=== PATIENT | female | born 1955 | race Caucasian/White ===

== ENCOUNTER 2018-09-16 14:30 | Inpatient (IN) | payer OTHER, SELFPAY ==
[2018-09-16] VITALS (11 sets, daily range): BP systolic 106–137; BP diastolic 40–66; PULSE 92–104; RESP 15–24; TEMP 36–36.4; O2SAT 97–100; BMI 26.2; BMI 24.7; BMI 24.8
[2018-09-16 14:51] LABS: Bedside Glucose > 500 mg/dL (70-110)
--- NOTE | 2018-09-16 15:17 | EKG12_ITS ---
Test Reason : GEN ILLNESS Blood Pressure : / mmHG Vent. Rate : 097 BPM Atrial Rate : 097 BPM P-R Int : 138 ms QRS Dur : 082 ms QT Int : 366 ms P-R-T Axes : 088 093 074 degrees QTc Int : 464 ms Normal sinus rhythm Right atrial enlargement Rightward axis Abnormal ECG Confirmed by CHRISTINA JEAN, ADELINE ([id number]), online content editor JEMIMA ANTOINE ([id number]) on 09/20/2018 6:30:40 AM Referred By: MARIE Confirmed By:ADELINE VASQUEZ MD
[2018-09-16] MEDS: 0.9% Normal Saline 1,000 ML 1000 ML IV (15:30)
[2018-09-16] MEDS: Ondansetron 4 MG/2 ML Vial IV (15:30)
--- NOTE | 2018-09-16 15:47 | ED.VISSUMM ---
- ER Visit Summary Date of Service: 09/16/18 Chief Complaint: Nausea vomiting History of Present Illness: The patient is a 63 F with nausea and vomiting for 2 days states worse today she is vomiting once an hour. She feels lightheaded. She recently got switched to a new GLP-1 receptor medication, exenatide, it is a once a week administration, she had her first dose 2 days ago she has no fever chills she denies any abdominal pain flank pain or dysuria. Physical Examination: She appears in some distress Dry mucous membranes, no obvious facial deformity No C-spine tenderness supple neck. Regular rate and rhythm without any obvious murmurs Clear lungs bilaterally speaking in full sentences without any obvious respiratory distress Abdomen soft and nontender no guarding or rebound Moves all extremities without any difficulty or pain. Skin does not show any obvious rashes or lesions, no trauma. Alert oriented ?3 with no gross focal deficit Emergency Department Course and Treatment: Patient is found to be in DKA. I started an insulin drip. She appears in slight distress I treated her nausea I reevaluated her again again she has no abdominal pain. I will admit her to ICU. She does have slight pancreatitis which will need to be monitored. Disposition: Admit in critical condition Impression: DKA critical care time 30 minutes This note was generated with [employer] dictation software. It may contain incorrect words, spelling, and punctuation that were not noted in review of the chart prior to signing ED Disposition - Plan for ED Patient: Referrals: Chandler Perez [Primary Care Provider] -
[2018-09-16 16:00] LABS: Bacteria 0 SEEN /hpf (None Seen); Mucous, Urine 0 SEEN /hpf (<or=2+); White Blood Cells 0 SEEN /hpf (0-5)
[2018-09-16 16:01] LABS: AST(SGOT) 23 U/L (15-37); Alanine Aminotransfer ALT/SGPT 26 U/L (13-56); Albumin, Serum 4.2 g/dL (3.2-5.0); Alkaline Phosphatase 124 U/L (45-117); Anion Gap 27 (5-15); BUN 29 mg/dL (7-18); Calcium,Total 9.5 mg/dL (8.5-10.1); Chloride 96 mmol/L (98-107); Creatinine, Serum 1.45 mg/dL (0.55-1.02); EST Glomerular Filtration Rate 39 mL/min (>60); Est Glom Filt Rate - Afr Amer 47 mL/min (>60); Estimated Creatinine Clearance 28.52 ml/min; Globulin 4.4 g/dL (2.2-4.2); Glucose 577 mg/dL (74-106); Lipase 756 U/L (73-393); Potassium 5.4 mmol/L (3.5-5.1); Protein, Total 8.6 g/dL (6.4-8.2); Sodium Level 132 mmol/L (136-145)
[2018-09-16 16:27] LABS: Color, Urine Yellow (Yellow); Glucose, Dipstick 1000 mg/dl (Normal); Leukocyte Esterase-Dipstick Negative /ul (Negative); Nitrite-Dipstick Negative (Negative); Occult Blood-Urine 50 /ul (Negative); Protein-Dipstick 30 mg/dl (Negative); Specific Gravity, Urine 1.025 (1.002-1.030); Urine Bilirubin Dipstick Negative (Negative); Urine Clarity Clear (Clear); Urine Urobilinogen Normal (Normal)
[2018-09-16 16:38] LABS: Ketone-Dipstick 150 mg/dl (Negative)
--- NOTE | 2018-09-16 16:38 | ED.RN ---
notified Dr. Deras of urine ketones 150
[2018-09-16 16:39] LABS: Red Blood Cells-Urine 0-5 SEEN /hpf (0-5); Squamous Epithelial Cells - UA 0-5 SEEN /hpf (5-10)
[2018-09-16 16:43] LABS: Absolute Lymphocyte Count 2.35 X10^3/ul (0.83-4.51); Basophil# 0.04 X10^3/uL; Basophil% 0.1 % (0-1); Eosinophil# 0.03 X10^3/uL; Eosinophils% 0.1 % (0-5); Hematocrit 49.2 % (37-47); Hemoglobin 15.8 g/dl (12.0-15.0); Lymphocyte # 2.35 X10^3/ul (4.0); Lymphocyte % 8.5 % (19-41); Mean Corp Hgb Conc 32.1 g/gl (32-36); Mean Corpuscular Hgb 32.3 pg (27.0-32.0); Mean Corpuscular Volume 100.6 fL (81-99); Mean Platelet Vol. 10.8 fl (6.2-12.0); Monocyte# 1.91 X10^3/uL; Monocyte% 6.9 % (0-10); Neutrophil # 23.04 X10^3/uL (2.7-7.7); Neutrophil % 83.8 % (47-70); Platelet Count 394 K/mm3 (150-450); RBC Distribution Width CV 12.7 % (11.6-14.6); RBC Distribution Width SD 46.7 fl (35.1-43.9); Red Blood Count 4.89 M/mm3 (4.2-5.4); White Blood Count 27.5 K/mm3 (4.4-11.0)
[2018-09-16 16:54] LABS: Allen Test POS; Blood Gas Specimen Type ART; O2 Delivery Device Room Air; SITE L RADIAL; Time Given 1642
[2018-09-16 16:55] LABS: Bicarbonate 3.6 mmol/L (22-26); PO2 128 mmHG (75-100); pCO2 14.4 mmHg (35-45); pH 7.01 (7.35-7.45)
[2018-09-16 16:56] LABS: Base Excess -27 mmol/L (-2 to +2); SO2 97 % (95-99); Total Carbon Dioxide < 5 mmol/L
[2018-09-16 16:57] LABS: Anisocytosis 1+; Differential Indicated SCAN CRITERIA MET; Macrocytosis 1+; POSITIVE COUNT NO; POSITIVE DIFFERENTIAL YES; POSITIVE MORPHOLOGY YES; Platelet Estimate ADEQUATE (ADEQ)
[2018-09-16 17:10] LABS: Bedside Glucose > 500 mg/dL (70-110)
--- NOTE | 2018-09-16 17:14 | CPS ---
critical abg results read to Dr. Deras
--- NOTE | 2018-09-16 17:34 | PCM.HP.STD ---
<Obi Valle - Last Filed: 09/16/18 17:34> Problem List (1) DKA (diabetic ketoacidoses) Status: Acute (2) Drug reaction Status: Acute (3) Diabetes Status: Chronic Qualifiers: Diabetes mellitus type: type 2 History of Present Illness Date of Admission: 09/16/18 Chief Complaint: nausea/vomiting The patient is a 63 year old F with pmhx of Dmt2 who presented to the ER with ongoing nausea and vomiting that started at about 2am. She presents in DKA, having recently started bydureon for DMt2. She felt fine yesterday. She currently is somewhat nauseous, feeling exhausted and thirsty. She denies SOB at rest, has mild exertional SOB, she denies cough, abdominal pain, diarrhea, MI. No reported urinary issues including emptying difficulty, frequency, urgency, dysuria. No recent illness/infection. She took her first dose of bydureon 2 days prior to today. In the ER she has severe leukocytosis, ABG with pH of 7.01, high pO2 and low pCO2, high anion gap metabolic acidosis, glucose of 577, elevated acetone, and urine with 30 protein, 1000 glucose, 150 ketones. She also has an elevated lipase, and pancreatitis is a possible reaction from GLP1 agonists. She however has no abdominal pain or tenderness. She will be admitted to the ICU for DKA and placed on an insulin drip. [] Past Medical History Past Medical History (Chronic Problems): Chronic Problems Diabetes (Chronic) Allergies exenatide [From Bydureon] Adverse Reaction (Verified 09/16/18 14:32) Other passed out Home Medications: Ambulatory Orders Medication Instructions Recorded Aspirin [Aspirin, Baby] 81 mg PO DAILY 09/16/18 Exenatide Microspheres [Bydureon 2 mg SQ QWEEK 09/16/18 Pen] Insulin Detemir [Levemir FlexPen] 22 units SQ BID 09/16/18 Insulin Lispro [Humalog Kwikpen] 4 - 20 unit SQ DAILY 09/16/18 Metformin HCl 1,000 mg PO BID 09/16/18 Raloxifene HCl 60 mg PO DAILY 09/16/18 Surgical History: no surgical history Psychiatric History: 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 Denies: Chills, Fever, Weight Change HEENT: Denies: Head Aches, Sinus Congestion, Sinus Drainage Cardiovascular: Denies: Chest Pain, Palpitations Respiratory: Reports: Shortness of Breath, Shortness of breath upon exertion. Denies: Cough, Shortness of breath at rest, Sputum production, Wheezing Gastrointestinal: Reports: Nausea, Vomiting. Denies: Abdominal Pain, Diarrhea Genitourinary: Denies: Dysuria Musculoskeletal: Denies: Joint Pain, Joint Tenderness Skin: Denies: Rash, Wounds Neurological: Denies: Numbness, Tingling, Focal weakness Psychiatric: Denies: Anxiety, Depression, Homicidal Ideations, Suicidal Ideations Hematologic/ Lymphatic: Denies: Easy Bruising, Easy Bleeding VTE Information - Inpt Only VTE Present on Admission: No VTE Mechan Device Prophylaxis: None VTE Pharm Prophylaxis ordered?: Yes Patient Problems: Active and Suspected Problems DKA (diabetic ketoacidoses) (Acute) Drug reaction (Acute) - Physical Exam General: Alert, Oriented x3, Cooperative HEENT: Atraumatic, PERRLA, EOMI, Normocephalic Neck: Supple, No JVD, Negative Carotid Bruits Lungs: Clear to auscultation, Normal air movement Cardiovascular: Regular rate, No murmurs Abdomen: Bowel Sounds Present, Soft, Non Tender Extremities: No edema, Capillary Refill Less than 3 Seconds Skin: No rashes, No breakdown Musculoskeletal: No Tenderness to Palpation of Joints or Extremities Neurological: Cranial nerves II-XII grossly intact Psych/Mental Status: Normal Affect, Appropriate, Alert and oriented to time, place, person, mood and affect Vital Signs Temp Pulse Resp BP Pulse Ox 97.6 F L 98 24 H 112/60 100 09/16/18 17:30 09/16/18 17:30 09/16/18 17:30 09/16/18 17:30 09/16/18 17:30 Oxygen Delivery Method Room Air Weight: 126 lb 15.78 oz Body Mass Index (BMI) 24.7 Finger Stick Blood Glucose 555 Laboratory Tests Past 24 Hrs 09/16/18 09/16/18 09/16/18 15:00 15:00 15:00 WBC 27.5 H RBC 4.89 Hgb 15.8 H Hct 49.2 H MCV 100.6 H MCH 32.3 H MCHC 32.1 RDW 12.7 RDW Differential 46.7 H Plt Count 394 MPV 10.8 Immature Gran % (Auto) 0.600 Neut % (Auto) 83.8 H Lymph % (Auto) 8.5 L [place] % (Auto) 6.9 Eos % (Auto) 0.1 Baso % (Auto) 0.1 Absolute Neuts (auto) 23.0 H Absolute Lymphs (auto) 2.35 Total Counted Not Reportable Differential Comment Diff Path Review May foll Platelet Estimate ADEQUATE Anisocytosis 1+ Macrocytosis 1+ Specimen Type Sample Site pH Bicarbonate Actual POC Total CO2 Base Excess O2 Saturation ABG pCO2 ABG pO2 Héctor Test O2 Delivery Device Blood Gas Notified Whom Blood Gas Notified Time Sodium 132 L Potassium 5.4 H Chloride 96 L Carbon Dioxide 9.0 L* Anion Gap 27 H BUN 29 H Creatinine 1.45 H Estim Creat Clear Calc 28.52 Est GFR (MDRD) Af Amer 47 L Est GFR (MDRD) Non-Af 39 L BUN/Creatinine Ratio 20.0 Glucose 577 H* Calcium 9.5 Total Bilirubin 0.50 AST 23 ALT 26 Alkaline Phosphatase 124 H Troponin I < 0.015 Total Protein 8.6 H Albumin 4.2 Globulin 4.4 H Albumin/Globulin Ratio 1.0 Lipase 756 H Urine Color Urine Clarity Urine pH Ur Specific [place] Urine Protein Urine Glucose (UA) Urine Ketones Urine Occult Blood Urine Nitrite Urine Bilirubin Urine Urobilinogen Ur Leukocyte Esterase Urine RBC Urine WBC Ur Squamous Epith Cells Urine Bacteria Urine Mucus Acetone Level MODERATE H 09/16/18 09/16/18 15:53 16:42 WBC RBC Hgb Hct MCV MCH MCHC RDW RDW Differential Plt Count MPV Immature Gran % (Auto) Neut % (Auto) Lymph % (Auto) [place] % (Auto) Eos % (Auto) Baso % (Auto) Absolute Neuts (auto) Absolute Lymphs (auto) Total Counted Differential Comment Diff Path Review Platelet Estimate Anisocytosis Macrocytosis Specimen Type ART Sample Site L RADIAL pH 7.01 L* Bicarbonate Actual 3.6 L POC Total CO2 < 5 Base Excess -27 L O2 Saturation 97 ABG pCO2 14.4 L* ABG pO2 128 H Héctor Test POS O2 Delivery Device Room Air Blood Gas Notified Whom ED Blood Gas Notified Time 1642 Sodium Potassium Chloride Carbon Dioxide Anion Gap BUN Creatinine Estim Creat Clear Calc Est GFR (MDRD) Af Amer Est GFR (MDRD) Non-Af BUN/Creatinine Ratio Glucose Calcium Total Bilirubin AST ALT Alkaline Phosphatase Troponin I Total Protein Albumin Globulin Albumin/Globulin Ratio Lipase Urine Color Yellow Urine Clarity Clear Urine pH 5.0 Ur Specific [place] 1.025 Urine Protein 30 H Urine Glucose (UA) 1000 H Urine Ketones 150 H Urine Occult Blood 50 H Urine Nitrite Negative Urine Bilirubin Negative Urine Urobilinogen Normal Ur Leukocyte Esterase Negative Urine RBC 0-5 SEEN Urine WBC 0 SEEN Ur Squamous Epith Cells 0-5 SEEN Urine Bacteria 0 SEEN Urine Mucus 0 SEEN Acetone Level POC Glucose 09/16/18 09/16/18 17:04 14:44 POC Glucose > 500 H* > 500 H* Assessment/Plan All Active Problems DKA (diabetic ketoacidoses) (Acute) Drug reaction (Acute) 1. Acute DKA 2/2 drug reaction (bydureon) - pt without breathing issues at this point, despite pH 7.01. Place in ICU on insulin drip and aggressive fluids. Monitor for sx/sx of pancreatitis. Elevated lipase which is a possible side effect of [id number] however currently no abdominal pain. N/V has improved. NPO regardless. q4h bmp last was hemolyzed. Currently no evidence of acute infectious process. 2. Probably MONIQUE 2/2 above however we do not have a baseline renal function. 3. DMt2 - no longer a candidate for GLP1 agonists, hold metformin DVT ppx: heparin This patient was seen by Obi Valle PA-C under the supervision of Dr. Carlos. <Abdiel Carlos F - Last Filed: 09/16/18 19:21> History of Present Illness The patient is a 63 year old F [] Past Medical History Allergies exenatide [From Bydureon] Adverse Reaction (Verified 09/16/18 14:32) Other passed out - Physical Exam Vital Signs Temp Pulse Resp BP Pulse Ox 97.6 F L 100 24 H 120/46 L 100 09/16/18 17:30 09/16/18 17:45 09/16/18 17:30 09/16/18 17:30 09/16/18 17:30 Oxygen Delivery Method Room Air Weight: 126 lb 15.78 oz Body Mass Index (BMI) 24.7 Finger Stick Blood Glucose 555 Intake and Output for Last 24 Hours 09/14/18 09/15/18 09/16/18 23:59 23:59 23:59 Output Total 500 / 500 Balance -500 / -500 Laboratory Tests Past 24 Hrs 09/16/18 09/16/18 09/16/18 15:00 15:00 15:00 WBC 27.5 H RBC 4.89 Hgb 15.8 H Hct 49.2 H MCV 100.6 H MCH 32.3 H MCHC 32.1 RDW 12.7 RDW Differential 46.7 H Plt Count 394 MPV 10.8 Immature Gran % (Auto) 0.600 Neut % (Auto) 83.8 H Lymph % (Auto) 8.5 L [place] % (Auto) 6.9 Eos % (Auto) 0.1 Baso % (Auto) 0.1 Absolute Neuts (auto) 23.0 H Absolute Lymphs (auto) 2.35 Total Counted Not Reportable Differential Comment Diff Path Review May foll Platelet Estimate ADEQUATE Anisocytosis 1+ Macrocytosis 1+ Specimen Type Sample Site pH Bicarbonate Actual POC Total CO2 Base Excess O2 Saturation ABG pCO2 ABG pO2 Héctor Test O2 Delivery Device Blood Gas Notified Whom Blood Gas Notified Time Sodium 132 L Potassium 5.4 H Chloride 96 L Carbon Dioxide 9.0 L* Anion Gap 27 H BUN 29 H Creatinine 1.45 H Estim Creat Clear Calc 28.52 Est GFR (MDRD) Af Amer 47 L Est GFR (MDRD) Non-Af 39 L BUN/Creatinine Ratio 20.0 Glucose 577 H* Serum Osmolality Calcium 9.5 Magnesium Total Bilirubin 0.50 AST 23 ALT 26 Alkaline Phosphatase 124 H Troponin I < 0.015 Total Protein 8.6 H Albumin 4.2 Globulin 4.4 H Albumin/Globulin Ratio 1.0 Lipase 756 H Urine Color Urine Clarity Urine pH Ur Specific [place] Urine Protein Urine Glucose (UA) Urine Ketones Urine Occult Blood Urine Nitrite Urine Bilirubin Urine Urobilinogen Ur Leukocyte Esterase Urine RBC Urine WBC Ur Squamous Epith Cells Urine Bacteria Urine Mucus Acetone Level MODERATE H 09/16/18 09/16/18 09/16/18 15:53 16:42 18:30 WBC RBC Hgb Hct MCV MCH MCHC RDW RDW Differential Plt Count MPV Immature Gran % (Auto) Neut % (Auto) Lymph % (Auto) [place] % (Auto) Eos % (Auto) Baso % (Auto) Absolute Neuts (auto) Absolute Lymphs (auto) Total Counted Differential Comment Diff Path Review Platelet Estimate Anisocytosis Macrocytosis Specimen Type ART Sample Site L RADIAL pH 7.01 L* Bicarbonate Actual 3.6 L POC Total CO2 < 5 Base Excess -27 L O2 Saturation 97 ABG pCO2 14.4 L* ABG pO2 128 H Héctor Test POS O2 Delivery Device Room Air Blood Gas Notified Whom ED Blood Gas Notified Time 1642 Sodium Potassium Chloride Carbon Dioxide Anion Gap BUN Creatinine Estim Creat Clear Calc Est GFR (MDRD) Af Amer Est GFR (MDRD) Non-Af BUN/Creatinine Ratio Glucose Serum Osmolality Calcium Magnesium 2.5 Total Bilirubin AST ALT Alkaline Phosphatase Troponin I Total Protein Albumin Globulin Albumin/Globulin Ratio Lipase Urine Color Yellow Urine Clarity Clear Urine pH 5.0 Ur Specific [place] 1.025 Urine Protein 30 H Urine Glucose (UA) 1000 H Urine Ketones 150 H Urine Occult Blood 50 H Urine Nitrite Negative Urine Bilirubin Negative Urine Urobilinogen Normal Ur Leukocyte Esterase Negative Urine RBC 0-5 SEEN Urine WBC 0 SEEN Ur Squamous Epith Cells 0-5 SEEN Urine Bacteria 0 SEEN Urine Mucus 0 SEEN Acetone Level 09/16/18 09/16/18 18:30 18:30 WBC RBC Hgb Hct MCV MCH MCHC RDW RDW Differential Plt Count MPV Immature Gran % (Auto) Neut % (Auto) Lymph % (Auto) [place] % (Auto) Eos % (Auto) Baso % (Auto) Absolute Neuts (auto) Absolute Lymphs (auto) Total Counted Differential Comment Diff Path Review Platelet Estimate Anisocytosis Macrocytosis Specimen Type Sample Site pH Bicarbonate Actual POC Total CO2 Base Excess O2 Saturation ABG pCO2 ABG pO2 Héctor Test O2 Delivery Device Blood Gas Notified Whom Blood Gas Notified Time Sodium 136 Potassium 5.3 H Chloride 104 Carbon Dioxide 5.0 L* Anion Gap 27 H BUN 29 H Creatinine 1.29 H Estim Creat Clear Calc 32.06 Est GFR (MDRD) Af Amer 54 L Est GFR (MDRD) Non-Af 44 L BUN/Creatinine Ratio 22.5 H Glucose 513 H* Serum Osmolality 334 H Calcium 8.9 Magnesium Total Bilirubin AST ALT Alkaline Phosphatase Troponin I Total Protein Albumin Globulin Albumin/Globulin Ratio Lipase Urine Color Urine Clarity Urine pH Ur Specific [place] Urine Protein Urine Glucose (UA) Urine Ketones Urine Occult Blood Urine Nitrite Urine Bilirubin Urine Urobilinogen Ur Leukocyte Esterase Urine RBC Urine WBC Ur Squamous Epith Cells Urine Bacteria Urine Mucus Acetone Level POC Glucose 09/16/18 09/16/18 09/16/18 18:03 17:04 14:44 POC Glucose > 500 H* > 500 H* > 500 H* Code Visit Addendum: Dr. Carlos I personally examined the patient and reviewed the chart. I agree with the above. 83-year-old female with history of type 2 diabetes who was to be transitioned from Levemir to exenatide because she was getting hypoglycemic on her insulin. Her most recent dose of her exenatide was 2 days ago and she presents with nausea, vomiting, fatigue, and elevated lipase in the 700s as well as what appears to be DKA. Her blood sugar on admission was 577 with a pH of 7.01 and moderate acetone will be admitted to the ICU on an insulin drip and IV fluids per protocol and will be monitored. She will also need diabetic education and teaching on how to use her insulin as I do not think that exenatide is right for her and she will need to follow-up with her PCP/principal accounts clerk as an outpatient after discharge. Inpatient E&M: [id number] Init Hosp L3
--- NOTE | 2018-09-16 17:36 | ED.RN ---
INSULIN VERIFIED WITH DANIEL YOU. Geovanny LONGORIA RN [id number]
[2018-09-16 18:11] LABS: Bedside Glucose > 500 mg/dL (70-110)
[2018-09-16] MEDS: 0.9% Normal Saline 1,000 ML 999 ML IV (18:30)
[2018-09-16 18:53] LABS: Osmolality, Serum 334 mOsm/KG (280-301)
[2018-09-16 19:01] LABS: Magnesium 2.5 mg/dL (1.6-2.6)
[2018-09-16 19:13] LABS: Anion Gap 27 (5-15); BUN 29 mg/dL (7-18); BUN/Creat Ratio 22.5 RATIO (10-20); Calcium,Total 8.9 mg/dL (8.5-10.1); Chloride 104 mmol/L (98-107); Creatinine, Serum 1.29 mg/dL (0.55-1.02); EST Glomerular Filtration Rate 44 mL/min (>60); Est Glom Filt Rate - Afr Amer 54 mL/min (>60); Estimated Creatinine Clearance 32.06 ml/min; Glucose 513 mg/dL (74-106); Potassium 5.3 mmol/L (3.5-5.1); Sodium Level 136 mmol/L (136-145)
[2018-09-16] MEDS: 0.9% Normal Saline 1,000 ML 500 ML IV (19:36)
[2018-09-16 19:41] LABS: Bedside Glucose 425 mg/dL (70-110)
[2018-09-16 20:31] LABS: Bedside Glucose 422 mg/dL (70-110)
[2018-09-16] MEDS: Heparin Injection (Vial) 5,000 UNIT/ML VIAL 5000 UNIT SC (21:11)
[2018-09-16 21:20] LABS: Bedside Glucose 390 mg/dL (70-110)
[2018-09-16] MEDS: 0.9% Normal Saline 1,000 ML 250 ML IV (21:37)
[2018-09-16 22:46] LABS: Anion Gap 20 (5-15); BUN 23 mg/dL (7-18); BUN/Creat Ratio 20.9 RATIO (10-20); Calcium,Total 7.6 mg/dL (8.5-10.1); Chloride 115 mmol/L (98-107); EST Glomerular Filtration Rate 53 mL/min (>60); Est Glom Filt Rate - Afr Amer 64 mL/min (>60); Glucose 296 mg/dL (74-106); Potassium 5.3 mmol/L (3.5-5.1); Sodium Level 142 mmol/L (136-145)
[2018-09-16] MEDS: Dext 5%-0.45% NS 1,000 ML 150 ML IV (23:15)
[2018-09-16 23:41] LABS: Bedside Glucose 236 mg/dL (70-110)
[2018-09-17] VITALS (28 sets, daily range): BP systolic 94–135; BP diastolic 51–69; PULSE 79–96; RESP 16–21; TEMP 36.2–36.8; O2SAT 97–100
[2018-09-17 00:10] LABS: Bedside Glucose 245 mg/dL (70-110)
[2018-09-17 01:16] LABS: Bedside Glucose 311 mg/dL (70-110)
[2018-09-17 02:16] LABS: Bedside Glucose 287 mg/dL (70-110)
[2018-09-17 02:38] LABS: Absolute Lymphocyte Count 1.74 X10^3/ul (0.83-4.51); Absolute Neutrophil Count 20.6 X10^3/uL (2.0-7.7); Basophil# 0.02 X10^3/uL; Basophil% 0.1 % (0-1); Hematocrit 38.1 % (37-47); Hemoglobin 12.6 g/dl (12.0-15.0); Lymphocyte # 1.74 X10^3/ul (4.0); Lymphocyte % 7.2 % (19-41); Mean Corp Hgb Conc 33.1 g/gl (32-36); Mean Corpuscular Hgb 31.7 pg (27.0-32.0); Mean Platelet Vol. 9.6 fl (6.2-12.0); Monocyte% 7.4 % (0-10); Neutrophil # 20.55 X10^3/uL (2.7-7.7); Neutrophil % 84.9 % (47-70); Platelet Count 309 K/mm3 (150-450); RBC Distribution Width CV 12.5 % (11.6-14.6); RBC Distribution Width SD 43.9 fl (35.1-43.9); Red Blood Count 3.97 M/mm3 (4.2-5.4); White Blood Count 24.2 K/mm3 (4.4-11.0)
[2018-09-17 02:41] LABS: Anion Gap 15 (5-15); BUN 18 mg/dL (7-18); BUN/Creat Ratio 16.8 RATIO (10-20); Calcium,Total 7.8 mg/dL (8.5-10.1); Chloride 116 mmol/L (98-107); Creatinine, Serum 1.07 mg/dL (0.55-1.02); EST Glomerular Filtration Rate 55 mL/min (>60); Est Glom Filt Rate - Afr Amer 67 mL/min (>60); Estimated Creatinine Clearance 38.65 ml/min; Glucose 276 mg/dL (74-106); Potassium 4.1 mmol/L (3.5-5.1); Sodium Level 141 mmol/L (136-145)
[2018-09-17 02:43] LABS: Lipase 189 U/L (73-393)
[2018-09-17 02:44] LABS: Differential Indicated SCAN CRITERIA MET; POSITIVE COUNT NO; POSITIVE DIFFERENTIAL YES; POSITIVE MORPHOLOGY YES
[2018-09-17 02:55] LABS: Anisocytosis RARE; Differential Comment SEE COMMENTS; Macrocytosis RARE; Platelet Estimate ADEQUATE (ADEQ)
[2018-09-17 03:01] LABS: Bedside Glucose 245 mg/dL (70-110)
[2018-09-17] MEDS: Heparin Injection (Vial) 5,000 UNIT/ML VIAL 5000 UNIT SC ×2 (05:00→21:29)
[2018-09-17] MEDS: 0.9% NaCl Peripheral Flush Adult/Peds IV ×2 (05:00→05:50)
[2018-09-17 05:11] LABS: Bedside Glucose 206 mg/dL (70-110)
[2018-09-17] MEDS: Dext 5%-0.45% NS 1,000 ML 150 ML IV ×2 (05:49→13:14)
[2018-09-17 06:50] LABS: Anion Gap 9 (5-15); BUN 16 mg/dL (7-18); BUN/Creat Ratio 14.8 RATIO (10-20); Calcium,Total 7.8 mg/dL (8.5-10.1); Chloride 116 mmol/L (98-107); Creatinine, Serum 1.08 mg/dL (0.55-1.02); EST Glomerular Filtration Rate 54 mL/min (>60); Est Glom Filt Rate - Afr Amer 66 mL/min (>60); Glucose 225 mg/dL (74-106); Potassium 3.6 mmol/L (3.5-5.1); Sodium Level 142 mmol/L (136-145)
[2018-09-17 07:05] LABS: Bedside Glucose 214 mg/dL (70-110)
--- NOTE | 2018-09-17 07:27 | PN_ITS ---
Patient Problems: Active and Suspected Problems DKA (diabetic ketoacidoses) (Acute) Drug reaction (Acute) Subjective: The patient is a 63-year-old female with a past medical history of diabetes mellitus type 2 who presented to the emergency department at [facility] on 09/16/2018 complaining of nausea and vomiting that had started early that morning. She was recently started on Bydureon for DM IIand took her first dose on 09/14/18. Vital signs of presentation to the emergency room were temperature 96.8, pulse rate 104, blood pressure 112/62, respiratory rate 16 and she was 100% saturated on room air. White blood cell count was elevated at 27.5 with 84% neutrophils. Hemoglobin was 15.8 and platelets were within normal limits. Random blood sugar was 577 and the serum bicarb was 9.0 with an anion gap of 27. ABG showed pH of 7.01 with a PCO2 of 14.4 and a PO2 of 128 on room air. A UA showed no white blood cells. Acetone level was moderately positive. She was admitted to the intensive care unit with a diagnosis of DKA and the DKA protocol was initiated. Afebrile since admission. Vital signs are stable and the current heart rate is 89 with a blood pressure of 102/54. She remains 100% saturated on room air. Fluid balance since admission is +2093. White blood cell count is 24.2 with 85% neutrophils. Hemoglobin is 12.6 following hydration and platelets are still within normal limits. The anion gap this morning is 17 and potassium is 3.6. Creatinine is 1.08, down from 1.45 at admission. Blood sugars have steadily improved and the blood sugar this a.m. was 225. Phos is low at 1.0. The hemoglobin A1c is 8.7. Mag is 2.5. Denies nausea, vomiting, abdominal pain. She relates to me that she was started on the once weekly Byrudeon. She was started on this because BS's at home were uncontrolled on Levemir 22 units BID. She has been taking the Byrudeon AND short acting insulin for markedly elevated sugars the past 2 days. she denies any prior hx of DKA. She was diagnosed with DM II in her 50's. No hx of CVD, HTN, HLD. - Physical Exam General: Alert, Oriented x3, Cooperative, No apparent distress, Well developed, Well nourished HEENT: Atraumatic, PERRLA, EOMI, Normocephalic Oral: Moist Mucosa Neck: Supple, Negative Carotid Bruits, No Nodes, Trachea Midline Lungs: Clear to auscultation Cardiovascular: Regular rate, Regular Rhythm, Normal S1, Normal S2, Murmur - she has a systolic MM at the apex and also a systolic MM in the left axilla, No Gallop Abdomen: Bowel Sounds Present, Soft, Non Tender, Non-Distended Extremities: No clubbing, No cyanosis, No edema, No Calf Tenderness, Peripheral Pulses Normal Skin: No rashes, No breakdown Neurological: Cranial nerves II-XII grossly intact, Neuro grossly intact Psych/Mental Status: Normal Affect, Appropriate Vital Signs Temp Pulse Resp BP Pulse Ox 98.0 F 89 16 102/54 L 100 09/17/18 04:00 09/17/18 06:00 09/17/18 06:00 09/17/18 06:00 09/17/18 06:00 Oxygen Delivery Method Room Air Weight: 131 lb 13.383 oz Body Mass Index (BMI) 24.7 Finger Stick Blood Glucose 214 Intake and Output for Last 24 Hours 09/15/18 09/16/18 09/17/18 23:59 23:59 23:59 Intake Total 3543.2 / 3543.2 Output Total 500 / 500 950 / 950 Balance -500 / -500 2593.2 / 2593.2 Laboratory Tests Past 24 Hrs 09/16/18 09/16/18 09/16/18 15:00 15:00 15:00 WBC 27.5 H RBC 4.89 Hgb 15.8 H Hct 49.2 H MCV 100.6 H MCH 32.3 H MCHC 32.1 RDW 12.7 RDW Differential 46.7 H Plt Count 394 MPV 10.8 Immature Gran % (Auto) 0.600 Neut % (Auto) 83.8 H Lymph % (Auto) 8.5 L [place] % (Auto) 6.9 Eos % (Auto) 0.1 Baso % (Auto) 0.1 Absolute Neuts (auto) 23.0 H Absolute Lymphs (auto) 2.35 Total Counted Not Reportable Differential Comment Diff Path Review May foll Platelet Estimate ADEQUATE Anisocytosis 1+ Macrocytosis 1+ Specimen Type Sample Site pH Bicarbonate Actual POC Total CO2 Base Excess O2 Saturation ABG pCO2 ABG pO2 Héctor Test O2 Delivery Device Blood Gas Notified Whom Blood Gas Notified Time Sodium 132 L Potassium 5.4 H Chloride 96 L Carbon Dioxide 9.0 L* Anion Gap 27 H BUN 29 H Creatinine 1.45 H Estim Creat Clear Calc 28.52 Est GFR (MDRD) Af Amer 47 L Est GFR (MDRD) Non-Af 39 L BUN/Creatinine Ratio 20.0 Glucose 577 H* Serum Osmolality Calcium 9.5 Magnesium Total Bilirubin 0.50 AST 23 ALT 26 Alkaline Phosphatase 124 H Troponin I < 0.015 Total Protein 8.6 H Albumin 4.2 Globulin 4.4 H Albumin/Globulin Ratio 1.0 Lipase 756 H Urine Color Urine Clarity Urine pH Ur Specific [place] Urine Protein Urine Glucose (UA) Urine Ketones Urine Occult Blood Urine Nitrite Urine Bilirubin Urine Urobilinogen Ur Leukocyte Esterase Urine RBC Urine WBC Ur Squamous Epith Cells Urine Bacteria Urine Mucus Acetone Level MODERATE H 09/16/18 09/16/18 09/16/18 15:53 16:42 18:30 WBC RBC Hgb Hct MCV MCH MCHC RDW RDW Differential Plt Count MPV Immature Gran % (Auto) Neut % (Auto) Lymph % (Auto) [place] % (Auto) Eos % (Auto) Baso % (Auto) Absolute Neuts (auto) Absolute Lymphs (auto) Total Counted Differential Comment Diff Path Review Platelet Estimate Anisocytosis Macrocytosis Specimen Type ART Sample Site L RADIAL pH 7.01 L* Bicarbonate Actual 3.6 L POC Total CO2 < 5 Base Excess -27 L O2 Saturation 97 ABG pCO2 14.4 L* ABG pO2 128 H Héctor Test POS O2 Delivery Device Room Air Blood Gas Notified Whom ED Blood Gas Notified Time 1642 Sodium Potassium Chloride Carbon Dioxide Anion Gap BUN Creatinine Estim Creat Clear Calc Est GFR (MDRD) Af Amer Est GFR (MDRD) Non-Af BUN/Creatinine Ratio Glucose Serum Osmolality Calcium Magnesium 2.5 Total Bilirubin AST ALT Alkaline Phosphatase Troponin I Total Protein Albumin Globulin Albumin/Globulin Ratio Lipase Urine Color Yellow Urine Clarity Clear Urine pH 5.0 Ur Specific [place] 1.025 Urine Protein 30 H Urine Glucose (UA) 1000 H Urine Ketones 150 H Urine Occult Blood 50 H Urine Nitrite Negative Urine Bilirubin Negative Urine Urobilinogen Normal Ur Leukocyte Esterase Negative Urine RBC 0-5 SEEN Urine WBC 0 SEEN Ur Squamous Epith Cells 0-5 SEEN Urine Bacteria 0 SEEN Urine Mucus 0 SEEN Acetone Level 09/16/18 09/16/18 09/16/18 18:30 18:30 22:15 WBC RBC Hgb Hct MCV MCH MCHC RDW RDW Differential Plt Count MPV Immature Gran % (Auto) Neut % (Auto) Lymph % (Auto) [place] % (Auto) Eos % (Auto) Baso % (Auto) Absolute Neuts (auto) Absolute Lymphs (auto) Total Counted Differential Comment Diff Path Review Platelet Estimate Anisocytosis Macrocytosis Specimen Type Sample Site pH Bicarbonate Actual POC Total CO2 Base Excess O2 Saturation ABG pCO2 ABG pO2 Héctor Test O2 Delivery Device Blood Gas Notified Whom Blood Gas Notified Time Sodium 136 142 Potassium 5.3 H 5.3 H Chloride 104 115 H Carbon Dioxide 5.0 L* 7.0 L* Anion Gap 27 H 20 H BUN 29 H 23 H Creatinine 1.29 H 1.10 H Estim Creat Clear Calc 32.06 37.60 Est GFR (MDRD) Af Amer 54 L 64 Est GFR (MDRD) Non-Af 44 L 53 L BUN/Creatinine Ratio 22.5 H 20.9 H Glucose 513 H* 296 H Serum Osmolality 334 H Calcium 8.9 7.6 L Magnesium Total Bilirubin AST ALT Alkaline Phosphatase Troponin I Total Protein Albumin Globulin Albumin/Globulin Ratio Lipase Urine Color Urine Clarity Urine pH Ur Specific [place] Urine Protein Urine Glucose (UA) Urine Ketones Urine Occult Blood Urine Nitrite Urine Bilirubin Urine Urobilinogen Ur Leukocyte Esterase Urine RBC Urine WBC Ur Squamous Epith Cells Urine Bacteria Urine Mucus Acetone Level 09/17/18 09/17/18 09/17/18 02:20 02:20 02:20 WBC 24.2 H RBC 3.97 L Hgb 12.6 Hct 38.1 MCV 96.0 MCH 31.7 MCHC 33.1 RDW 12.5 RDW Differential 43.9 Plt Count 309 MPV 9.6 Immature Gran % (Auto) 0.400 Neut % (Auto) 84.9 H Lymph % (Auto) 7.2 L [place] % (Auto) 7.4 Eos % (Auto) 0.0 Baso % (Auto) 0.1 Absolute Neuts (auto) 20.6 H Absolute Lymphs (auto) 1.74 Total Counted Not Reportable Differential Comment SEE COMMENTS Diff Path Review May foll Platelet Estimate ADEQUATE Anisocytosis RARE Macrocytosis RARE Specimen Type Sample Site pH Bicarbonate Actual POC Total CO2 Base Excess O2 Saturation ABG pCO2 ABG pO2 Héctor Test O2 Delivery Device Blood Gas Notified Whom Blood Gas Notified Time Sodium 141 Potassium 4.1 Chloride 116 H Carbon Dioxide 10.0 L Anion Gap 15 BUN 18 Creatinine 1.07 H Estim Creat Clear Calc 38.65 Est GFR (MDRD) Af Amer 67 Est GFR (MDRD) Non-Af 55 L BUN/Creatinine Ratio 16.8 Glucose 276 H Serum Osmolality Calcium 7.8 L Magnesium Total Bilirubin AST ALT Alkaline Phosphatase Troponin I Total Protein Albumin Globulin Albumin/Globulin Ratio Lipase 189 Urine Color Urine Clarity Urine pH Ur Specific [place] Urine Protein Urine Glucose (UA) Urine Ketones Urine Occult Blood Urine Nitrite Urine Bilirubin Urine Urobilinogen Ur Leukocyte Esterase Urine RBC Urine WBC Ur Squamous Epith Cells Urine Bacteria Urine Mucus Acetone Level 09/17/18 06:25 WBC RBC Hgb Hct MCV MCH MCHC RDW RDW Differential Plt Count MPV Immature Gran % (Auto) Neut % (Auto) Lymph % (Auto) [place] % (Auto) Eos % (Auto) Baso % (Auto) Absolute Neuts (auto) Absolute Lymphs (auto) Total Counted Differential Comment Diff Path Review Platelet Estimate Anisocytosis Macrocytosis Specimen Type Sample Site pH Bicarbonate Actual POC Total CO2 Base Excess O2 Saturation ABG pCO2 ABG pO2 Héctor Test O2 Delivery Device Blood Gas Notified Whom Blood Gas Notified Time Sodium 142 Potassium 3.6 Chloride 116 H Carbon Dioxide 17.0 L Anion Gap 9 BUN 16 Creatinine 1.08 H Estim Creat Clear Calc 38.30 Est GFR (MDRD) Af Amer 66 Est GFR (MDRD) Non-Af 54 L BUN/Creatinine Ratio 14.8 Glucose 225 H Serum Osmolality Calcium 7.8 L Magnesium Total Bilirubin AST ALT Alkaline Phosphatase Troponin I Total Protein Albumin Globulin Albumin/Globulin Ratio Lipase Urine Color Urine Clarity Urine pH Ur Specific [place] Urine Protein Urine Glucose (UA) Urine Ketones Urine Occult Blood Urine Nitrite Urine Bilirubin Urine Urobilinogen Ur Leukocyte Esterase Urine RBC Urine WBC Ur Squamous Epith Cells Urine Bacteria Urine Mucus Acetone Level POC Glucose 09/17/18 09/17/18 09/17/18 06:59 05:03 02:58 POC Glucose 214 H 206 H 245 H 09/17/18 09/17/18 09/17/18 02:10 01:10 00:06 POC Glucose 287 H 311 H 245 H 09/16/18 09/16/18 09/16/18 23:08 21:10 20:24 POC Glucose 236 H 390 H 422 H 09/16/18 09/16/18 09/16/18 19:34 18:03 17:04 POC Glucose 425 H > 500 H* > 500 H* 09/16/18 14:44 POC Glucose > 500 H* Medical Necessity - Tobacco Use Smoking Status: Never smoker Tobacco Use: Non-smoker Assessment/Plan All Active Problems DKA (diabetic ketoacidoses) (Acute) Drug reaction (Acute) Impressions 1. DKA - no hx of DKA. No infection. Will need to go back on insulin. 2. hypophosphatemia 3. DM I now due to DKA in a pt with no infection DC the insulin drip when the bicarb is 18 or greater and start Levemir and short acting insulin with meals and place her on a calorie controlled diet. Supplement the phos Check a microalbumin/creat ratio Repeat lab in the AM consult with the television presenter supplement the K to keep it close to 4 Code Visit Inpatient E&M: 65098 Subs Hosp L3
[2018-09-17 08:28] LABS: Hemoglobin A1c 8.7 % (4.2-6.3)
[2018-09-17 09:16] LABS: Bedside Glucose 175 mg/dL (70-110)
[2018-09-17 09:16] LABS: Bedside Glucose 141 mg/dL (70-110)
[2018-09-17 10:06] LABS: Bedside Glucose 130 mg/dL (70-110)
[2018-09-17] MEDS: Raloxifene HCl 60 MG Tablet PO (10:27)
[2018-09-17 11:32] LABS: Anion Gap 9 (5-15); BUN 14 mg/dL (7-18); BUN/Creat Ratio 16.2 RATIO (10-20); Chloride 117 mmol/L (98-107); Creatinine, Serum 0.86 mg/dL (0.55-1.02); EST Glomerular Filtration Rate 70 mL/min (>60); Est Glom Filt Rate - Afr Amer 85 mL/min (>60); Estimated Creatinine Clearance 48.09 ml/min; Glucose 119 mg/dL (74-106); Potassium 3.4 mmol/L (3.5-5.1); Sodium Level 142 mmol/L (136-145)
[2018-09-17 11:45] LABS: Bedside Glucose 100 mg/dL (70-110)
[2018-09-17 12:35] LABS: Bedside Glucose 101 mg/dL (70-110)
--- NOTE | 2018-09-17 13:02 | CHAPLAIN ---
Type of Pastoral Visit _x__ Initial Visit ___ Follow-up Visit ___ On-call Visit ___ General Patient Visit ___ Spiritual Assessment ___ Family Conference ___ Bereavement ___ Rapid Response ___ Code Blue ___ Other (describe below) Pastoral Care Referral From _x__ Patient ___ Family ___ Nurse ___ Physician ___ Associate Research Scientist ___ Slitter Processed Film ___ Other (describe below) Sacrament/Intervention _x__ Active listening ___ Anointing ___ Evangelical ___ Bereavement ___ Communion ___ Naila exploration ___ _x__ Life review _x__ Prayer ___ Reconciliation ___ Sacrament of Sick ___ Supportive presence ___ Wedding ___ Other (describe below) Pastoral Comments
[2018-09-17] MEDS: Insulin Lispro 100 UNIT/ML INSULN.PEN SC ×3 (13:14→17:53)
--- NOTE | 2018-09-17 14:00 | CASEMGMT ---
RN CM SEAM HAMMERER CM to room to meet with patient for initial transition planning/care coordination assessment. DANIEL MORTON introduced self and role at [facility]. Pt voices understanding and consents to assessment at this time. Pt sitting up in chair in room in no distress at this time. Pt is A/O at this time and answers all questions appropriately. Care providers, pharmacy, and demographics verified at this time. PCP: Chris Specialists: none. Interested in seeing an Flatware Maker. Given list of local Endocrinologists in network with [employer]. Discussed Diabetic Clinic. Pt interested in information. Given Diabetic Clinic Rac Card and made aware to talk with PCP for referral if she is interested in going. Preferred Pharmacy: [facility] Insurance: [employer] Prescription Benefit: Yes Living Will/HPOA: States does not have LW or HCPOA . Interested in more information but states does not want to talk with SW at this time to complete paperwork. Provided information on advanced directives and given Social Service rac card with number to call if chooses in the future to utilize [facility] social work for advanced directive completion. LNOK: Living Arrangements: Lives with in one-story home. 1 step to enter in the front, 2-3 to enter thru the garage. Independent with ADL's. does cooking and yardwork. Pt works full-time and manages household tasks. Transportation: Pt states drives self and states no transportation concerns at this time. can drive on d/c. DME: States has the following DME: rails/grab bars, hand held shower, glucometer--states it works properly and has all supplies needed. Pt states no need for further DME at this time. HHC/SNF: No history of either and denies needs. No needs identified. Pt wishes to return home and states has no concerns with going home at time of discharge. Pt states does not smoke or drink ETOH. CM to follow for any further discharge planning/needs. Pt voices no further concerns/needs at this time. Advised pt to ask for CM if any further questions/concerns/needs arise. Voices understanding. PLAN: Home w/spousal support and discharge plans in place. Court WE[facility] RN, CM
[2018-09-17 14:03] LABS: Pathologist Review Reviewed
[2018-09-17 14:05] LABS: Pathologist Review Reviewed
[2018-09-17 18:00] LABS: Bedside Glucose 326 mg/dL (70-110)
[2018-09-17 18:01] LABS: Microalbumin,Random Urine 9.9 mg/L (NO RANGE EST.); Microalbumin:Creatinine Ratio 32.1 mg/g CRE (<30 mg/g CRE)
[2018-09-17 21:35] LABS: Bedside Glucose 313 mg/dL (70-110)
[2018-09-18] VITALS (18 sets, daily range): BP systolic 117–157; BP diastolic 59–82; PULSE 67–98; RESP 14–20; TEMP 36.2–37.1; O2SAT 98–100
[2018-09-18 04:26] LABS: Hematocrit 35.8 % (37-47); Hemoglobin 12.3 g/dl (12.0-15.0); Mean Corp Hgb Conc 34.4 g/gl (32-36); Mean Corpuscular Hgb 31.5 pg (27.0-32.0); Mean Corpuscular Volume 91.6 fL (81-99); Mean Platelet Vol. 9.9 fl (6.2-12.0); Platelet Count 242 K/mm3 (150-450); RBC Distribution Width CV 12.7 % (11.6-14.6); RBC Distribution Width SD 41.5 fl (35.1-43.9); Red Blood Count 3.91 M/mm3 (4.2-5.4); White Blood Count 12.5 K/mm3 (4.4-11.0)
[2018-09-18 04:34] LABS: Cholesterol 142 mg/dL (200); High Density Lipoprotein 83 mg/dL; Magnesium 2.1 mg/dL (1.6-2.6); Phosphorus 1.5 mg/dL (2.5-4.9); Triglycerides 101 mg/dL; Very Low Density Lipoprotein 20 mg/dL (5-40)
[2018-09-18 04:47] LABS: Scan Indicated on CBC? Y/N NO
[2018-09-18 05:06] LABS: Anion Gap 12 (5-15); BUN 9 mg/dL (7-18); BUN/Creat Ratio 11.1 RATIO (10-20); Chloride 112 mmol/L (98-107); Creatinine, Serum 0.81 mg/dL (0.55-1.02); EST Glomerular Filtration Rate 76 mL/min (>60); Est Glom Filt Rate - Afr Amer 91 mL/min (>60); Estimated Creatinine Clearance 51.06 ml/min; Glucose 265 mg/dL (74-106); Potassium 4.1 mmol/L (3.5-5.1); Sodium Level 142 mmol/L (136-145)
[2018-09-18 06:31] LABS: Bedside Glucose 254 mg/dL (70-110)
--- NOTE | 2018-09-18 08:15 | PCM.PROGNOTE ---
Patient Problems: Active and Suspected Problems DKA (diabetic ketoacidoses) (Acute) Drug reaction (Acute) Subjective: Afebrile, vital signs stable Blood sugar record was reviewed All lab was personally reviewed. The white blood cell count today is 12.5 but the patient has been afebrile since admission and has no dysuria, no cough, no abdominal pain and no nausea or vomiting. Serum bicarb remains mildly decreased at 18. Potassium is now normal at 4.1 and the magnesium is also normal at 2.1. Despite supplementation phosphorus remains low at 1.5. Lipid panel shows triglycerides of 101, LDL of 39 and the HDL was 83. Microalbumin creatinine ratio is mildly increased at 32.1 She has no complaints today. Objective: PHYSICAL EXAM: GENERAL: alert, oriented X 3, Cooperative, NAD ORAL: moist mucosa, no mucosal lesions NECK: No JVD, supple, trachea midline LUNGS: CTA, symmetric chest expansion HEART: RRR, Normal S1 and S2, no rub, no gallop. the MM heart on 09/17 was possibly a flow MM due to dehydration ABDOMEN: soft, NT, ND, BS present, no guarding with palpation EXTREMITIES: no edema, no cyanosis, no calf tenderness SKIN: No rashes, no breakdown NEUROLOGIC: no focal neurologic deficits PSYCH: appropriate, normal affect, pleasant - Physical Exam Vital Signs Temp Pulse Resp BP Pulse Ox 97.1 F L 76 18 124/70 H 100 09/18/18 04:00 09/18/18 08:00 09/18/18 07:00 09/18/18 07:00 09/18/18 07:00 Oxygen Delivery Method Room Air Weight: 132 lb 11.492 oz Body Mass Index (BMI) 24.7 Finger Stick Blood Glucose 141 Intake and Output for Last 24 Hours 09/16/18 09/17/18 09/18/18 23:59 23:59 23:59 Intake Total 6987.2 / 6987.2 Output Total 500 / 500 4400 / 4400 1050 / 1050 Balance -500 / -500 2587.2 / 2587.2 -1050 / -1050 Laboratory Tests Past 24 Hrs 09/16/18 09/17/18 09/17/18 15:00 02:20 02:20 WBC RBC Hgb Hct MCV MCH MCHC RDW RDW Differential Plt Count MPV Diff Path Review Reviewed Reviewed Sodium Potassium Chloride Carbon Dioxide Anion Gap BUN Creatinine Estim Creat Clear Calc Est GFR (MDRD) Af Amer Est GFR (MDRD) Non-Af BUN/Creatinine Ratio Glucose Hemoglobin A1c 8.7 H Calcium Phosphorus Magnesium Triglycerides Cholesterol LDL Cholesterol VLDL Cholesterol HDL Cholesterol Ur Random Microalbumin Urine Creatinine Microalb/Creat Ratio 09/17/18 09/17/18 09/18/18 10:50 17:20 04:10 WBC 12.5 H RBC 3.91 L Hgb 12.3 Hct 35.8 L MCV 91.6 MCH 31.5 MCHC 34.4 RDW 12.7 RDW Differential 41.5 Plt Count 242 MPV 9.9 Diff Path Review Sodium 142 Potassium 3.4 L Chloride 117 H Carbon Dioxide 16.0 L Anion Gap 9 BUN 14 Creatinine 0.86 Estim Creat Clear Calc 48.09 Est GFR (MDRD) Af Amer 85 Est GFR (MDRD) Non-Af 70 BUN/Creatinine Ratio 16.2 Glucose 119 H Hemoglobin A1c Calcium 8.0 L Phosphorus Magnesium Triglycerides Cholesterol LDL Cholesterol VLDL Cholesterol HDL Cholesterol Ur Random Microalbumin 9.9 Urine Creatinine 30.70 Microalb/Creat Ratio 32.1 H 09/18/18 09/18/18 04:10 04:10 WBC RBC Hgb Hct MCV MCH MCHC RDW RDW Differential Plt Count MPV Diff Path Review Sodium 142 Potassium 4.1 Chloride 112 H Carbon Dioxide 18.0 L Anion Gap 12 BUN 9 Creatinine 0.81 Estim Creat Clear Calc 51.06 Est GFR (MDRD) Af Amer 91 Est GFR (MDRD) Non-Af 76 BUN/Creatinine Ratio 11.1 Glucose 265 H Hemoglobin A1c Calcium 8.0 L Phosphorus 1.5 L Magnesium 2.1 Triglycerides 101 Cholesterol 142 LDL Cholesterol 39 VLDL Cholesterol 20 HDL Cholesterol 83 Ur Random Microalbumin Urine Creatinine Microalb/Creat Ratio POC Glucose 09/18/18 09/17/18 09/17/18 06:25 21:26 17:50 POC Glucose 254 H 313 H 326 H 09/17/18 09/17/18 09/17/18 12:30 11:32 10:01 POC Glucose 101 100 130 H 09/17/18 09/17/18 09:07 08:06 POC Glucose 141 H 175 H Medical Necessity - Tobacco Use Smoking Status: Never smoker Tobacco Use: Non-smoker Assessment/Plan All Active Problems DKA (diabetic ketoacidoses) (Acute) Drug reaction (Acute) Impressions 1. DKA - no hx of DKA. No infection. Will need to go back on insulin. 2. hypophosphatemia 3. DM I now due to DKA in a pt with no infection 4. Hypokalemia 5. Elevated microalbumin/creatinine ratio Start lisinopril 2.5 mg daily and monitor blood pressure Transfer to medical floor today Encourage the patient to get up and walk today Increase mealtime insulin to 7 units and continue sliding insulin scale Continue Levemir 22 units at bedtime Encourage the patient to follow-up with the dietitians and there diabetic class discussed carb control and modification of diet with the patient Code Visit Inpatient E&M: 46030 Subs Hosp L2
[2018-09-18] MEDS: Insulin Lispro 100 UNIT/ML INSULN.PEN SC ×3 (08:17→16:03)
[2018-09-18] MEDS: Insulin Lispro 100 UNIT/ML INSULN.PEN 7 UNIT SC ×3 (08:18→16:02)
[2018-09-18] MEDS: Raloxifene HCl 60 MG Tablet PO (08:20)
[2018-09-18] MEDS: Heparin Injection (Vial) 5,000 UNIT/ML VIAL 5000 UNIT SC ×2 (08:21→21:20)
[2018-09-18] MEDS: Lisinopril 2.5 MG Tablet PO (09:44)
[2018-09-18 11:21] LABS: Bedside Glucose 445 mg/dL (70-110)
--- NOTE | 2018-09-18 15:27 | NURSING ---
report called to [facility] for transfer to room 119
[2018-09-18 16:26] LABS: Bedside Glucose 305 mg/dL (70-110)
[2018-09-18 22:21] LABS: Bedside Glucose 252 mg/dL (70-110)
[2018-09-19 01:55] VITALS: BP 139/71; PULSE 70; RESP 14; TEMP 36.8; O2SAT 97
--- NOTE | 2018-09-19 02:58 | NURSING ---
This RN taking over patient care at this time.
[2018-09-19 06:35] VITALS: BP 129/71; PULSE 67; RESP 14; TEMP 36.4; O2SAT 97
[2018-09-19 07:02] LABS: Anion Gap 7 (5-15); BUN 8 mg/dL (7-18); BUN/Creat Ratio 17.3 RATIO (10-20); Calcium,Total 8.2 mg/dL (8.5-10.1); Chloride 111 mmol/L (98-107); Creatinine, Serum 0.46 mg/dL (0.55-1.02); EST Glomerular Filtration Rate 145 mL/min (>60); Est Glom Filt Rate - Afr Amer 175 mL/min (>60); Estimated Creatinine Clearance 89.91 ml/min; Glucose 42 mg/dL (74-106); Phosphorus 3.1 mg/dL (2.5-4.9); Potassium 3.3 mmol/L (3.5-5.1); Sodium Level 146 mmol/L (136-145)
[2018-09-19 07:05] LABS: Bedside Glucose 130 mg/dL (70-110)
[2018-09-19 07:05] LABS: Bedside Glucose 47 mg/dL (70-110)
[2018-09-19] MEDS: Insulin Lispro 100 UNIT/ML INSULN.PEN SC ×2 (08:29→12:40)
[2018-09-19] MEDS: Insulin Lispro 100 UNIT/ML INSULN.PEN 7 UNIT SC ×2 (08:29→12:41)
[2018-09-19] MEDS: Heparin Injection (Vial) 5,000 UNIT/ML VIAL 5000 UNIT SC ×2 (08:30→21:22)
[2018-09-19] MEDS: Lisinopril 2.5 MG Tablet PO (08:30)
[2018-09-19] MEDS: Raloxifene HCl 60 MG Tablet PO (08:31)
[2018-09-19 08:40] LABS: Bedside Glucose 294 mg/dL (70-110)
[2018-09-19 11:54] VITALS: BP 140/79; PULSE 77; RESP 18; TEMP 36.8; O2SAT 99
[2018-09-19 12:06] LABS: Bedside Glucose 223 mg/dL (70-110)
[2018-09-19 16:30] LABS: Bedside Glucose 149 mg/dL (70-110)
[2018-09-19] MEDS: Insulin Lispro 100 UNIT/ML INSULN.PEN 6 UNIT SC (17:19)
[2018-09-19 17:28] VITALS: BP 131/70; PULSE 88; RESP 18; TEMP 36.6; O2SAT 97
[2018-09-19] MEDS: BENZOCAINE/MENTHOL 1 LOZENGE MUCOUS MEM ×2 (17:40→21:22)
[2018-09-19 18:14] LABS: Anion Gap 7 (5-15); BUN 11 mg/dL (7-18); BUN/Creat Ratio 16.5 RATIO (10-20); Calcium,Total 8.8 mg/dL (8.5-10.1); Chloride 104 mmol/L (98-107); Creatinine, Serum 0.67 mg/dL (0.55-1.02); EST Glomerular Filtration Rate 95 mL/min (>60); Est Glom Filt Rate - Afr Amer 115 mL/min (>60); Estimated Creatinine Clearance 61.73 ml/min; Glucose 251 mg/dL (74-106); Potassium 3.9 mmol/L (3.5-5.1); Sodium Level 141 mmol/L (136-145)
--- NOTE | 2018-09-19 20:50 | PCM.PROGNOTE ---
Patient Problems: Active and Suspected Problems DKA (diabetic ketoacidoses) (Acute) Drug reaction (Acute) Subjective: Feeling much better today. Appetite is improving. Denies nausea/vomiting. Denies abdominal pain. Her only complaint today is a sore throat and some painful swallowing. Blood sugar record was reviewed and blood sugars are somewhat labile. Fasting blood sugar this morning was 42. Objective: GENERAL: alert, oriented X 3, Cooperative, NAD ORAL: moist mucosa, no mucosal lesions, there is injection of the posterior pharynx on the right side, no exudate NECK: No JVD, supple, trachea midline, no cervical adenopathy LUNGS: CTA, symmetric chest expansion HEART: RRR, Normal S1 and S2, no rub, no gallop. the MM heart on 09/17 was possibly a flow MM due to dehydration ABDOMEN: soft, NT, ND, BS present, no guarding with palpation EXTREMITIES: no edema, no cyanosis, no calf tenderness SKIN: No rashes, no breakdown NEUROLOGIC: no focal neurologic deficits PSYCH: appropriate, normal affect, pleasant - Physical Exam Vital Signs Temp Pulse Resp BP Pulse Ox 97.8 F 88 18 131/70 H 97 09/19/18 17:28 09/19/18 17:28 09/19/18 17:28 09/19/18 17:28 09/19/18 17:28 Oxygen Delivery Method Room Air Weight: 132 lb 11.492 oz Body Mass Index (BMI) 24.7 Finger Stick Blood Glucose 141 Intake and Output for Last 24 Hours 09/17/18 09/18/18 09/19/18 23:59 23:59 23:59 Intake Total 6987.2 / 6987.2 1835 / 1835 120 / 120 Output Total 4400 / 4400 1550 / 1550 Balance 2587.2 / 2587.2 285 / 285 120 / 120 Laboratory Tests Past 24 Hrs 09/19/18 09/19/18 06:05 17:40 Sodium 146 H 141 Potassium 3.3 L 3.9 Chloride 111 H 104 Carbon Dioxide 28.0 30.0 Anion Gap 7 7 BUN 8 11 Creatinine 0.46 L 0.67 Estim Creat Clear Calc 89.91 61.73 Est GFR (MDRD) Af Amer 175 115 Est GFR (MDRD) Non-Af 145 95 BUN/Creatinine Ratio 17.3 16.5 Glucose 42 L* 251 H Calcium 8.2 L 8.8 Phosphorus 3.1 POC Glucose 09/19/18 09/19/18 09/19/18 16:27 12:00 08:27 POC Glucose 149 H 223 H 294 H 09/19/18 09/19/18 09/18/18 07:01 06:38 21:19 POC Glucose 130 H 47 L 252 H Medical Necessity - Tobacco Use Smoking Status: Never smoker Tobacco Use: Non-smoker Assessment/Plan All Active Problems DKA (diabetic ketoacidoses) (Acute) Drug reaction (Acute) Impressions 1. DKA - no hx of DKA. No infection. Will need to go back on insulin. 2. hypophosphatemia 3. DM I now due to DKA in a pt with no infection 4. Hypokalemia 5. Elevated microalbumin/creatinine ratio 6. Sore throat Tolerating lisinopril 2.5 mg daily. Will check a rapid strep - Suspect that the sore throat may be due to the prolonged vomiting at admission BMX every 4 hours as needed sore throat Cepacol lozenges p.o. as needed for sore throat CT scan of the abdomen and pelvis in the a.m. for new onset type 1 diabetes mellitus to evaluate the pancreas Decrease the at bedtime insulin to 18 units of Lantus nightly Decrease mealtime insulin to 6 units Probable discharge tomorrow Code Visit Inpatient E&M: 35789 Subs Hosp L2
[2018-09-19 21:18] VITALS: BP 142/73; PULSE 70; RESP 16; TEMP 36.8; O2SAT 100
[2018-09-19 21:25] LABS: Bedside Glucose 312 mg/dL (70-110)
[2018-09-20 03:18] VITALS: BP 141/79; PULSE 77; RESP 16; TEMP 36.6; O2SAT 98
[2018-09-20] MEDS: BENZOCAINE/MENTHOL 1 LOZENGE MUCOUS MEM (03:29)
--- NOTE | 2018-09-20 05:55 | CT_ITS ---
STUDY: CT ABDOMEN AND PELVIS WITH CONTRAST REASON FOR EXAM: Female, 63 years old. Left upper quadrant pain, DKA, fluctuating blood sugar levels, new onset of diabetes type 1. RADIATION DOSAGE (If Supplied By Facility): CTDIvol = ( 14.88 ) mGy, DLP = ( 486.76 ) mGycm TECHNIQUE: Transaxial 3.75 mm images were obtained from the dome of the diaphragm to the symphysis pubis with oral contrast. 100ML IV Isovue 300 was administered. Sagittal and coronal images were reconstructed. Individualized dose optimization techniques were used for this CT. COMPARISON: None. FINDINGS: Mild compression of dependent parenchyma wall thickening. No confluent pneumonia or effusion. The visualized portions of the heart are within normal limits. Elongated right liver lobe. Normal gallbladder and extrahepatic biliary system. Normal spleen. Normal pancreas. Normal bilateral adrenal glands. Normal right kidney. Normal left kidney. There is no obstructive uropathy, obstructive renal or ureteral calculi. Oral contrast reaching the splenic flexure. Normal visualized stomach. Normal small intestine. Cecum and appendix are in the right pelvis with the appendix seen image [id number] series 2. Normal colon. Decompressed descending 2 rectal colon. The appendix is visualized and appears normal. Normal abdominal aorta. Normal inferior vena cava. Normal retroperitoneum. 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 Mild prominence of the urinary bladder of up to 0.5 cm, the urinary bladder however is not completely distended.. The uterus is age appropriate with a fundal calcification likely a fibroid. Anterior abdominal skin and subcutaneous opacification possibly related to injection or prior surgical intervention. There are mild degenerative changes of the visualized lumbar spine. CT/Abdomen/Pelvis WITH Contrast IMPRESSION: There is no acute abdomen and pelvic pathology. Indeterminate urinary bladder wall possibly secondary to incomplete distention. There is no appendicitis, colitis, diverticulitis, sinusitis, abscess, collection, perforation or obstruction. There is no obstructive uropathy, obstructive renal or ureteral calculi. An elongated right hepatic lobe, uterine fibroid nonacute findings. Electronically Signed: Flor Minal, MD at 6:59 EDT , Service support ,
[2018-09-20 06:46] LABS: Bedside Glucose 236 mg/dL (70-110)
[2018-09-20 07:21] LABS: Bedside Glucose 288 mg/dL (70-110)
[2018-09-20] MEDS: Insulin Lispro 100 UNIT/ML INSULN.PEN SC ×2 (08:03→11:16)
[2018-09-20] MEDS: Insulin Lispro 100 UNIT/ML INSULN.PEN 6 UNIT SC ×2 (08:04→11:17)
[2018-09-20] MEDS: Heparin Injection (Vial) 5,000 UNIT/ML VIAL 5000 UNIT SC (08:05)
[2018-09-20] MEDS: Lisinopril 2.5 MG Tablet PO (08:05)
[2018-09-20] MEDS: Raloxifene HCl 60 MG Tablet PO (08:06)
[2018-09-20 08:46] VITALS: BP 140/77; PULSE 78; RESP 18; TEMP 36.6; O2SAT 99
[2018-09-20 11:25] LABS: Bedside Glucose 265 mg/dL (70-110)
[2018-09-20 14:31] VITALS: BP 133/73; PULSE 88; RESP 16; TEMP 36.6; O2SAT 98
--- NOTE | 2018-09-20 14:38 | DCINST_ITS ---
- Discharge Diagnoses Current Active Problems: Current Active and Chronic Problems DKA (diabetic ketoacidoses) (Acute) Diabetes (Chronic) Drug reaction (Acute) You will use the following diet at home:: Calorie/Carbohydrate Controlled (specify 1200, 1400, etc) - 1600 calories Your food should be the consistency of: Regular Your liquids should be the consistency of: Regular/Thin Discharge Activity: Return to Normal Activity Return to work on:: 09/23/18 Call your doctor if you observe: Fever of 101 or Higher, Shortness of breath, Dizziness, Fainting spells, Swelling in the ankles, Chest pain, Calf discomfort, - - consistently low blood sugars in the morning (<80) consistently elevated blood sugars > 250 Instructions: Diabetes and Your Child: Preventing Diabetic Ketoacidosis (DKA) Additional Instructions: 1. You are now a type I diabetic. You will need to be on insulin to control the blood sugars. When you are sick and not eating you may need to transiently decrease the insulin. Conversely if you have an infection the blood sugars may increase and you will need more insulin. You can not go without insulin or you will go into DKA again. I have given you some info to read about DKA - it talks about children but, the same applies to adults. 2. There is some very early in the protein in the urine. The protein is called microalbumin and it is the first indicator of some kidney damage. I have started you on a medication called Lisinopril and this will help to prevent further damage. You will take it once a day. 3. Consistency is the agrawal to managing diabetes......you must keep the amount of carbohydrate you are eating consistent to get good control of blood sugars. 4. Following is a scale you can use if the blood sugars are very high....your doctor may change this in the future. the goal of diabetic control is a fasting blood sugar < 130 and a 2 hour post prandial blood sugar < 180. Post prandial means after a meal. Regular Exercise will decrease blood sugar and help maintain good control. < 250 no extra insulin. 251 - 280 2 extra units. 281 - 310 3 extra units. 311 - 340 4 extra units. > 340 5 extra units and recheck the blood sugar in 1 hour. If it is not coming down call you PCP for instructions. 5. It was a pleasure meeting you and participating in your hospital care. I know you can get these sugars under control. The manager culinary's run a diabetic clinic in the hospital and they get excellent results.......all you will need is a referral from your PCP. Take care of yourself Allergies/Adverse Reactions: Allergies exenatide [From Bydureon] Adverse Reaction (Verified 09/16/18 14:32) Other passed out Medications to take at Discharge Aspirin [Aspirin, Baby] 81 mg PO DAILY 09/16/18 Insulin Detemir [Levemir FlexPen] 22 units SQ BID 09/16/18 Insulin Lispro [Humalog Kwikpen] 4 - 20 unit SQ DAILY 09/16/18 Raloxifene HCl 60 mg PO DAILY 09/16/18 Insulin Glargine [Lantus SoloStar Pen] 18 units SC QHS #2 pen 09/20/18 Insulin Lispro [Humalog KwikPen] 10 unit SC TIDAC #10 insuln.pen 09/20/18 Lisinopril [Zestril] 2.5 mg PO DAILY #30 tablet 09/20/18 The following prescriptions were given: Insulin Glargine [Lantus SoloStar Pen] 18 units SC QHS #2 pen Insulin Lispro [Humalog KwikPen] 10 unit SC TIDAC #10 insuln.pen Lisinopril [Zestril] 2.5 mg PO DAILY #30 tablet Primary Care Physician: Chandler Perez [Primary Care Provider] - Please follow up with your Primary Care Physician in: 1 week Test Results: Test results from this visit will be discussed in further detail at your follow- up appointment, if applicable. Proposed Discharge Date: 09/20/18
--- NOTE | 2018-09-20 14:39 | PCM.WORK.EX ---
Work/School Excuse Work/School Excuse for:: Patient Please excuse this person from:: Work From: 09/17/18 - in hospital with DKA through: 09/22/18 Restrictions: Other - no restriction
--- NOTE | 2018-09-20 14:54 | PCM.DC.SUM ---
Discharge Date and Diagnosis Date of Admission: 09/16/18 Date of Discharge: 09/20/18 - Primary Discharge Diagnosis Active and Suspected Problems DKA (diabetic ketoacidoses) (Acute) Hypoglycemia due to insulin (Acute) Pharyngitis (Acute) - due to repeated vomiting Hypokalemia (Acute) Hypophosphatemia (Acute) Diabetes mellitus type 1 (Acute) -previously a type II diabetic - Secondary Discharge Diagnosis Chronic Problems History of type 2 diabetes mellitus (Chronic) Microalbuminuria due to type 1 diabetes mellitus (Chronic) Hospital Course and Treatment Imaging Results: 09/20/18 05:55 CT Abd [Abdomen/Pelvis WITH Contrast] [CT] AM (NON MEDS) Clinical Impression(s) from Imaging Studies Abdomen/Pelvis CT 09/20/18 05:55 IMPRESSION: There is no acute abdomen and pelvic pathology. Indeterminate urinary bladder wall possibly secondary to incomplete distention. There is no appendicitis, colitis, diverticulitis, sinusitis, abscess, collection, perforation or obstruction. There is no obstructive uropathy, obstructive renal or ureteral calculi. An elongated right hepatic lobe, uterine fibroid nonacute findings. Electronically Signed: Flor Fontaine MD at 6:59 EDT , Service support , The pancreas and liver and the biliary system are all normal none Operations: None Procedures: 2-D Echocardiogram - Left ventricular function is normal with a 70% ejection fraction. Apical false tendon noted. Trivial mitral and tricuspid and pulmonic valve insufficiency. No evidence for diastolic dysfunction Summary of Care Provided: The patient is a 63-year-old female with a past medical history of diabetes mellitus type 2 who presented to the emergency department at [facility] on 09/16/2018 complaining of nausea and vomiting that had started early that morning. She was recently started on Bydureon for DM IIand took her first dose on 09/14/18. Vital signs of presentation to the emergency room were temperature 96.8, pulse rate 104, blood pressure 112/62, respiratory rate 16 and she was 100% saturated on room air. White blood cell count was elevated at 27.5 with 84% neutrophils. Hemoglobin was 15.8 and platelets were within normal limits. Random blood sugar was 577 and the serum bicarb was 9.0 with an anion gap of 27. ABG showed pH of 7.01 with a PCO2 of 14.4 and a PO2 of 128 on room air. A UA showed no white blood cells. Acetone level was moderately positive. She was admitted to the intensive care unit with a diagnosis of DKA and the DKA protocol was initiated. There was no findings consistent with infection. DKA resolved and she was transitioned to Lantus at and scheduled short acting mealtime insulin along with a sliding scale. Education regarding diet was supplied by the final inspector shuttle. BS's were not optimally controlled on the day of DC but, the mealtime insulin was adjusted and she was discharged home. Dosages can be fine tuned as an OP and she was provided with a sliding scale. She will follow up with her PCP in 1 week and will keep a record of her blood sugars to take to that visit. She understands that she is now classified as a Type I diabetic and will need insulin to control blood sugars and prevent DKA. While in the hospital a microalbumin/creat ratio was obtained and it was mildly elevated. She was started on Lisinopril 2.5 mg daily and tolerated well with no side effects. An ECHO was done due to a loud MM at admission and it showed a 70% left ventricular ejection fraction with no wall motion abnormalities, apical false tendon, trivial mitral and tricuspid valve insufficiency and no evidence for diastolic dysfunction. Following hydration the murmur resolved and it was likely a flow murmur. PHYSICAL EXAM: GENERAL: alert, oriented X 3, Cooperative, NAD ORAL: moist mucosa, no mucosal lesions NECK: No JVD, supple, trachea midline LUNGS: CTA, symmetric chest expansion HEART: RRR, Normal S1 and S2, no rub, no gallop ABDOMEN: soft, NT, ND, BS present, no guarding with palpation EXTREMITIES: no edema, no cyanosis, no calf tenderness SKIN: No rashes, no breakdown NEUROLOGIC: no focal neurologic deficits PSYCH: appropriate, normal affect, pleasant This note was generated with Qooplation software. It may contain incorrect words, spelling, and punctuation that were not noted in checking the note before signing. - Physical Exam Vital Signs Temp Pulse Resp BP Pulse Ox 98 F 88 16 133/73 H 98 09/20/18 14:31 09/20/18 14:31 09/20/18 14:31 09/20/18 14:31 09/20/18 14:31 Oxygen Delivery Method Room Air Weight: 131 lb 2.801 oz Body Mass Index (BMI) 24.7 Finger Stick Blood Glucose 141 Intake and Output for Last 24 Hours 09/18/18 09/19/18 09/20/18 23:59 23:59 23:59 Intake Total 1835 / 1835 520 / 520 637 / 637 Output Total 1550 / 1550 Balance 285 / 285 520 / 520 637 / 637 Microbiology Past 72 Hours 09/19/18 18:25 Group A Streptococcus Rapid Screen - Preliminary Mucosa - Throat Laboratory Tests Past 24 Hrs 09/19/18 17:40 Sodium 141 Potassium 3.9 Chloride 104 Carbon Dioxide 30.0 Anion Gap 7 BUN 11 Creatinine 0.67 Estim Creat Clear Calc 61.73 Est GFR (MDRD) Af Amer 115 Est GFR (MDRD) Non-Af 95 BUN/Creatinine Ratio 16.5 Glucose 251 H Calcium 8.8 POC Glucose 09/20/18 09/20/18 09/20/18 11:14 06:40 05:48 POC Glucose 265 H 236 H 288 H 09/19/18 09/19/18 21:18 16:27 POC Glucose 312 H 149 H Discharge Activity: Return to Normal Activity Return to work on:: 09/23/18 Call your doctor if you observe: Fever of 101 or Higher, Shortness of breath, Dizziness, Fainting spells, Swelling in the ankles, Chest pain, Calf discomfort, - - consistently low blood sugars in the morning (<80) consistently elevated blood sugars > 250 Home Medications: Medications to take at Discharge Aspirin [Aspirin, Baby] 81 mg PO DAILY 09/16/18 Insulin Detemir [Levemir FlexPen] 22 units SQ BID 09/16/18 Insulin Lispro [Humalog Kwikpen] 4 - 20 unit SQ DAILY 09/16/18 Raloxifene HCl 60 mg PO DAILY 09/16/18 Insulin Glargine [Lantus SoloStar Pen] 18 units SC QHS #2 pen 09/20/18 Insulin Lispro [Humalog KwikPen] 10 unit SC TIDAC #10 insuln.pen 09/20/18 Lisinopril [Zestril] 2.5 mg PO DAILY #30 tablet 09/20/18 Following Prescrptions Were Given to Patient: Insulin Glargine [Lantus SoloStar Pen] 18 units SC QHS #2 pen Insulin Lispro [Humalog KwikPen] 10 unit SC TIDAC #10 insuln.pen Lisinopril [Zestril] 2.5 mg PO DAILY #30 tablet Primary Care Physician: Chandler Perez [Primary Care Provider] - Please follow up with your Primary Care Physician in: 1 week Patient Instructions: Diabetes and Your Child: Preventing Diabetic Ketoacidosis (DKA) Disposition: Home Minutes spent on discharge:: 35 Patient Condition:: Good Medical Necessity - Tobacco Use Smoking Status: Never smoker Tobacco Use: Non-smoker Meaningful Use Info Meaningful Use Diagnoses (Choose all that apply): None applicable Code Visit Inpatient E&M: 30408 Disch Hosp
== END 2018-09-20 15:30 | disposition home or self-care (01) | DRG 638 ==
LOC: ED 15:44 → ICU 16:55 → PCU 09-18 15:38
PROVIDERS: Physician Assistant; Admitting Provider Family Medicine; Emergency Provider Emergency Medicine; Family Provider Family Medicine; PCP Family Medicine; Visit Provider Internal Medicine
DX: E10.10 Type 1 diabetes mellitus with ketoacidosis without coma (principal); N17.9 Acute kidney failure, unspecified; E87.6 Hypokalemia; E83.39 Other disorders of phosphorus metabolism; T38.3X5A Adverse effect of insulin and oral hypoglycemic [antidiabetic] drugs, initial encounter; R01.1 Cardiac murmur, unspecified; J02.9 Acute pharyngitis, unspecified; I08.1 Rheumatic disorders of both mitral and tricuspid valves
CPT/HCPCS: 36415; 36600; 74177; 80048; 80053; 80061; 81001; 82009; 82043; 82570; 82803; 82962; 83036; 83690; 83735; 83930; 84100; 84484; 85025; 85027; 87880; 93005; 93306; 99285; J7030; J7040; Q9967; A4216; J2405; J7799

== ENCOUNTER 2018-11-13 14:55 | Outpatient (RCR) | payer OTHER, SELFPAY ==
[2018-09-16 17:30] VITALS: BMI 24.7
== END 2018-11-13 23:59 ==
LOC: DC 14:55
PROVIDERS: Family Provider Family Medicine; PCP Family Medicine; Visit Provider Family Medicine
DX: E11.9 Type 2 diabetes mellitus without complications (principal); Z71.3 Dietary counseling and surveillance
CPT/HCPCS: G0108

== ENCOUNTER 2018-11-19 14:53 | Outpatient (RCR) | payer OTHER, SELFPAY ==
[2018-09-16 17:30] VITALS: BMI 24.7
== END 2018-12-14 23:59 ==
LOC: DC 14:53
PROVIDERS: Family Provider Family Medicine; PCP Family Medicine; Visit Provider Family Medicine
DX: E11.9 Type 2 diabetes mellitus without complications (principal); Z71.3 Dietary counseling and surveillance
CPT/HCPCS: 97802

== ENCOUNTER 2018-12-18 14:54 | Outpatient (RCR) | payer OTHER, SELFPAY ==
[2018-09-16 17:30] VITALS: BMI 24.7
== END 2019-01-13 23:59 ==
LOC: DC 14:54
PROVIDERS: Family Provider Family Medicine; PCP Family Medicine; Visit Provider Family Medicine
DX: E11.9 Type 2 diabetes mellitus without complications (principal); Z71.3 Dietary counseling and surveillance
CPT/HCPCS: G0108

== ENCOUNTER → 2022-04-11 | Outpatient (CLI) | payer MEDICARE, SELFPAY ==
--- NOTE | 2022-04-11 10:18 | RAD_ITS ---
INDICATION: COUGH EXAMINATION/TECHNIQUE: X-RAY - XR Chest 2 Views COMPARISON: None. FINDINGS: Support devices: None. No focal consolidations, effusions, or sizable pneumothorax. Cardiomediastinal silhouette is within normal limits. Bones and soft tissues are unremarkable. RAD/Chest PA and Lateral IMPRESSION: No radiographic evidence of acute cardiopulmonary disease. Electronically Signed: Enrique Avery, at 15:25 EST ,
== END | disposition home or self-care (01) ==
PROVIDERS: PCP Family Medicine; Referring Provider Family Medicine; Visit Provider Family Medicine
DX: R05.9 Cough, unspecified (principal)
CPT/HCPCS: 71046

== ENCOUNTER → 2022-07-06 | Outpatient (CLI) | payer MEDICARE, SELFPAY ==
--- NOTE | 2022-07-06 14:24 | BI_ITS ---
MAMMOGRAPHY - BILATERAL SCREENING REASON FOR EXAM: Female, 67 years old. Routine annual screening examination. PERTINENT HISTORY: Non-contributory. TECHNIQUE: Digital bilateral breast carlos enrique (3D mammographic acquisition) in the CC and MLO projections. 2-D mediolateral oblique (MLO) and craniocaudad (CC) views of both breasts were obtained. CAD: Full Field Digital Mammography with Computer Added Detection was performed. COMPARISON: Comparison is made with prior outside examination from August 09, 2015. FINDINGS: Breast Composition: The breasts are heterogeneously dense, which may obscure small masses. There are no dominant masses or suspicious calcifications. Stable small benign-appearing bilateral axillary lymph nodes. No other significant abnormalities are identified. There has been no significant change since the prior study. BI/SCRN MAMM (CAD)W/CARLOS ENRIQUE BILAT IMPRESSION: Stable bilateral screening mammogram. Yearly follow-up mammogram recommended. (A) ASSESSMENT CATEGORY: BIRADS Category 2: Benign. A letter regarding these results will be sent to the patient by the facility within 30 days. Approximately 10% of breast cancers are not detected by mammography. A normal mammogram should not delay biopsy of a clinically suspicious abnormality. [id number] Electronically Signed: Herbert Johnson MD at 13:45 EDT ,
--- NOTE | 2022-07-06 14:43 | BD_ITS ---
STUDY: DUAL ENERGY X-RAY ABSORPTIOMETRY / DXA REASON FOR EXAM: Female, 67 years old. Hx of osteoporosis TECHNIQUE: Bone Mineral Density (BMD) measurements of lumbar spine and bilateral hips were obtained. COMPARISON: None. FINDINGS: Lumbar Spine (L1-L4): g/cm2 (0.880) / T-score (-1.5) / Z-score (0.4) Findings are suggestive of osteopenia with a low fracture risk. Left Femur Total: g/cm2 (0.783) / T-score (-1.3) / Z-score (0.0) Left Femoral Neck: g/cm2 (0.700) / T-score (-1.3) / Z-score (0.3) Right Femur Total: g/cm2 (0.801) / T-score (-1.2) / Z-score (0.2) Right Femoral Neck: g/cm2 (0.695) / T-score (-1.4) / Z-score (0.2) BD/Dexa Bone Density Study IMPRESSION: The patient is considered osteopenic as outlined below according to World [employer] Organization (WHO) criteria with a low fracture risk. Reference Information: The T-score is the number of standard deviations above or below the standard which is normal for young adults at their peak bone mineral density. The World Health Organization (WHO) interprets the T-scores as follows: Above -1 Normal bone density Between -1 and -2.5 Osteopenia Equal to / or below -2.5 Osteoporosis As a practical clinical guideline, osteopenia may be graded as follows: Mild -1 through -1.5 Moderate -1.6 through -2.0 Severe -2.1 through -2.4 The Z-score is the number of standard deviations above or below age-matched controls. A Z-score of less than -1.5 would be considered abnormal. References: 1. NIH Osteoporosis and Related Bone Diseases www osteo.org 2. International Society for Clinical Densitometry www iscd.org 3. National Osteoporosis Foundation www nof.org Electronically Signed: Herbert Johnson MD at 15:42 EDT ,
== END | disposition home or self-care (01) ==
LOC: OPBD 14:22
PROVIDERS: PCP Family Medicine; Referring Provider Nurse Practitioner Family; Visit Provider Nurse Practitioner Family
DX: Z12.31 Encounter for screening mammogram for malignant neoplasm of breast (principal); M81.0 Age-related osteoporosis without current pathological fracture
CPT/HCPCS: 77063; 77067; 77080

== ENCOUNTER → 2022-12-08 | Outpatient (CLI) | payer MEDICARE, SELFPAY ==
[2022-12-08 09:54] LABS: Microalbumin,Random Urine 8.2 mg/L (NO RANGE EST.); Microalbumin:Creatinine Ratio 9.9 mg/g CRE (<30 mg/g CRE)
[2022-12-08 10:35] LABS: Vitamin D,25 Hydroxy 50.3 ng/mL
[2022-12-08 10:47] LABS: ALB/GLOB Ratio 0.9 RATIO (0.9-2.4); AST(SGOT) 13 U/L (15-37); Alanine Aminotransfer ALT/SGPT 28 U/L (13-56); Albumin, Serum 3.3 g/dL (3.2-5.0); Alkaline Phosphatase 81 U/L (45-117); Anion Gap 2 (5-15); BUN 14 mg/dL (7-18); BUN/Creat Ratio 18.8 RATIO (10-20); Calcium,Total 8.5 mg/dL (8.5-10.1); Chloride 105 mmol/L (98-107); Cholesterol 176 mg/dL (200); Creatinine, Serum 0.74 mg/dL (0.55-1.02); EST Glomerular Filtration Rate 82 mL/min (>60); Est Glom Filt Rate - Afr Amer 100 mL/min (>60); Globulin 3.8 g/dL (2.2-4.2); Glucose 292 mg/dL (74-106); High Density Lipoprotein 82 mg/dL; Potassium 4.4 mmol/L (3.5-5.1); Protein, Total 7.1 g/dL (6.4-8.2); Sodium Level 138 mmol/L (136-145); Thyroid Stim Hormone (TSH) 5.36 uIU/mL (0.358-3.74); Triglycerides 78 mg/dL; Very Low Density Lipoprotein 16 mg/dL (5-40)
[2022-12-12 04:07] LABS: Thyroid Peroxidase AB 9 IU/mL (0-34)
== END | disposition home or self-care (01) ==
LOC: LAB 08:34
PROVIDERS: PCP Internal Medicine; Referring Provider Nurse Practitioner Family; Visit Provider Nurse Practitioner Family
DX: I10 Essential (primary) hypertension (principal); E10.9 Type 1 diabetes mellitus without complications; E66.3 Overweight; M85.80 Other specified disorders of bone density and structure, unspecified site; R79.89 Other specified abnormal findings of blood chemistry
CPT/HCPCS: 36415; 80053; 80061; 82043; 82306; 82570; 84443; 86376

== ENCOUNTER 2023-01-09 08:22 | Outpatient (CLI) | payer MEDICARE, SELFPAY ==
[2023-01-09 08:30] VITALS: BP 150/67; PULSE 68; RESP 16; TEMP 36.6; O2SAT 97
[2023-01-09] MEDS: DENOSUMAB 60 MG/ML SC (08:43)
== END 2023-01-09 08:23 | disposition home or self-care (01) ==
PROVIDERS: PCP Internal Medicine; Referring Provider Nurse Practitioner Family; Visit Provider Nurse Practitioner Family
DX: M85.80 Other specified disorders of bone density and structure, unspecified site (principal)
CPT/HCPCS: 96372; J0897

== ENCOUNTER → 2023-07-09 | Outpatient (CLI) | payer MEDICARE, SELFPAY ==
--- NOTE | 2023-07-09 13:14 | BI_ITS ---
MAMMOGRAPHY - BILATERAL SCREENING REASON FOR EXAM: Female, 68 years old. Routine annual screening examination. PERTINENT HISTORY: Non-contributory. TECHNIQUE: Digital bilateral breast carlos enrique (3D mammographic acquisition) in the CC and MLO projections. 2-D mediolateral oblique (MLO) and craniocaudad (CC) views of both breasts were obtained. CAD: Full Field Digital Mammography with Computer Added Detection was performed. COMPARISON: Comparison is made with prior study dated July 06, 2022. FINDINGS: Breast Composition: The breasts are heterogeneously dense, which may obscure small masses. There are no dominant masses or suspicious calcifications. Stable small benign-appearing bilateral axillary lymph nodes. Stable bilateral secretory calcifications as well as macrocalcifications. No other significant abnormalities are identified. There has been no significant change since the prior study. BI/SCRN MAMM (CAD)W/CARLOS ENRIQUE BILAT IMPRESSION: Stable bilateral screening mammogram. Yearly follow-up mammogram recommended. (A) ASSESSMENT CATEGORY: BIRADS Category 2: Benign. A letter regarding these results will be sent to the patient by the facility within 30 days. Approximately 10% of breast cancers are not detected by mammography. A normal mammogram should not delay biopsy of a clinically suspicious abnormality. [id number] Electronically Signed: Herbert Johnson MD at 14:09 EDT ,
== END | disposition home or self-care (01) ==
LOC: OPBI 13:14
PROVIDERS: PCP Internal Medicine; Referring Provider Internal Medicine; Visit Provider Internal Medicine
DX: Z12.31 Encounter for screening mammogram for malignant neoplasm of breast (principal)
CPT/HCPCS: 77063; 77067

== ENCOUNTER → 2023-07-12 | Outpatient (CLI) | payer MEDICARE, SELFPAY ==
[2023-07-12 11:05] LABS: Absolute Lymphocyte Count 2.01 X10^3/uL (0.83-4.51); Absolute Neutrophil Count 3.7 X10^3/uL (2.0-7.7); Basophil# 0.02 X10^3/uL; Basophil% 0.3 % (0-1); Eosinophil# 0.25 X10^3/uL; Eosinophils% 3.8 % (0-5); Hematocrit 43.8 % (37-47); Hemoglobin 14.2 g/dL (12.0-15.0); Lymphocyte # 2.01 X10^3/ul (0.83-4.51); Lymphocyte % 30.7 % (19-41); Mean Corp Hgb Conc 32.4 g/dL (32-36); Mean Corpuscular Hgb 31.6 pg (27.0-32.0); Mean Corpuscular Volume 97.3 fL (81-99); Mean Platelet Vol. 9.9 fl (6.2-12.0); Monocyte# 0.57 X10^3/uL; Monocyte% 8.7 % (0-10); NRBC Flagged by Analyzer 0 % (0-5); Neutrophil # 3.68 X10^3/uL (2.7-7.7); Neutrophil % 56.3 % (47-70); Platelet Count 334 K/mm3 (150-450); RBC Distribution Width CV 12.9 % (11.6-14.6); RBC Distribution Width SD 46.5 fl (35.1-43.9); White Blood Count 6.5 K/mm3 (4.4-11.0)
[2023-07-12 11:37] LABS: Thyroid Stim Hormone (TSH) 4.45 uIU/mL (0.358-3.74)
[2023-07-13 04:07] LABS: Thyroid Peroxidase AB < 9 IU/mL (0-34)
== END | disposition home or self-care (01) ==
PROVIDERS: Nurse Practitioner Family; PCP Internal Medicine; Referring Provider Internal Medicine; Visit Provider Internal Medicine
DX: R79.89 Other specified abnormal findings of blood chemistry (principal); M85.80 Other specified disorders of bone density and structure, unspecified site; I10 Essential (primary) hypertension
CPT/HCPCS: 36415; 84443; 85025; 86376

== ENCOUNTER → 2024-02-15 | Outpatient (CLI) | payer MEDICARE, SELFPAY ==
[2024-02-15 09:54] LABS: Absolute Lymphocyte Count 2.25 X10^3/uL (0.83-4.51); Absolute Neutrophil Count 2.2 X10^3/uL (2.0-7.7); Basophil# 0.02 X10^3/uL; Basophil% 0.4 % (0-1); Eosinophil# 0.23 X10^3/uL; Eosinophils% 4.3 % (0-5); Hematocrit 43.4 % (37-47); Hemoglobin 13.7 g/dL (12.0-15.0); Lymphocyte # 2.25 X10^3/ul (0.83-4.51); Lymphocyte % 42.5 % (19-41); Mean Corp Hgb Conc 31.6 g/dL (32-36); Mean Corpuscular Volume 98.2 fL (81-99); Mean Platelet Vol. 9.8 fl (6.2-12.0); Monocyte# 0.61 X10^3/uL; Monocyte% 11.5 % (0-10); NRBC Flagged by Analyzer 0 % (0-5); Neutrophil # 2.17 X10^3/uL (2.7-7.7); Neutrophil % 40.9 % (47-70); Platelet Count 339 K/mm3 (150-450); RBC Distribution Width CV 13.1 % (11.6-14.6); RBC Distribution Width SD 47.3 fl (35.1-43.9); Red Blood Count 4.42 M/mm3 (4.2-5.4); White Blood Count 5.3 K/mm3 (4.4-11.0)
[2024-02-15 10:07] LABS: Microalbumin,Random Urine 7.4 mg/L (NO RANGE EST.); Microalbumin:Creatinine Ratio 6.2 mg/g CRE (<30 mg/g CRE)
[2024-02-15 10:10] LABS: Vitamin D,25 Hydroxy 36.8 ng/mL
[2024-02-15 10:19] LABS: AST(SGOT) 14 U/L (15-37); Alanine Aminotransfer ALT/SGPT 20 U/L (13-56); Albumin, Serum 3.6 g/dL (3.2-5.0); Alkaline Phosphatase 91 U/L (45-117); Anion Gap 3 (5-15); BUN 11 mg/dL (7-18); BUN/Creat Ratio 15.2 RATIO (10-20); Calcium,Total 8.8 mg/dL (8.5-10.1); Chloride 107 mmol/L (98-107); Cholesterol 201 mg/dL (200); Creatinine, Serum 0.72 mg/dL (0.55-1.02); EST Glomerular Filtration Rate 85 mL/min (>60); Est Glom Filt Rate - Afr Amer 103 mL/min (>60); Globulin 3.7 g/dL (2.2-4.2); Glucose 133 mg/dL (74-106); High Density Lipoprotein 110 mg/dL; Potassium 4.2 mmol/L (3.5-5.1); Protein, Total 7.3 g/dL (6.4-8.2); Sodium Level 140 mmol/L (136-145); Triglycerides 50 mg/dL; Very Low Density Lipoprotein 10 mg/dL (5-40)
== END | disposition home or self-care (01) ==
LOC: LAB 08:45
PROVIDERS: PCP Internal Medicine; Referring Provider Nurse Practitioner Family; Visit Provider Nurse Practitioner Family
DX: E10.65 Type 1 diabetes mellitus with hyperglycemia (principal); E10.29 Type 1 diabetes mellitus with other diabetic kidney complication; R79.89 Other specified abnormal findings of blood chemistry; I10 Essential (primary) hypertension; R80.9 Proteinuria, unspecified; E55.9 Vitamin D deficiency, unspecified
CPT/HCPCS: 36415; 80053; 80061; 82043; 82306; 82570; 84443; 85025

== ENCOUNTER → 2024-03-10 | Outpatient (CLI) | payer MEDICARE, SELFPAY ==
[2024-03-11 04:07] LABS: Thyroid Peroxidase AB < 9 IU/mL (0-34)
== END | disposition home or self-care (01) ==
LOC: LAB 08:09
PROVIDERS: PCP Internal Medicine; Referring Provider Internal Medicine Endocrinology, Diabetes & Metabolism; Visit Provider Internal Medicine Endocrinology, Diabetes & Metabolism
DX: R94.6 Abnormal results of thyroid function studies (principal)
CPT/HCPCS: 36415; 84443; 86376

== ENCOUNTER → 2025-02-03 | Outpatient (CLI) | payer MEDICARE, SELFPAY ==
--- OUTSIDE RECORDS SUMMARY | 2025-02-03 08:38 | XMS RPT_ITS | CCD ---
Author Organization [facility] Care Team Providers Care [place] Rider Name Role Phone Chandler Shannon DO Primary Care Provider Dr. Chandler Shannon Primary Care Provider Zachary Guillen Attending Provider Unavailable Dr. Chandler Shannon Referring Provider CATRINA Love Attending Provider CHANDLER SHANNON Attending Unavailable Dr. Chandler Shannon Primary Care Provider [phone] Dr. Chandler Shannon Referring Provider [phone] Dr. Lorna Bruce Attending Provider CATRINA Love Attending Provider Dr. Lorna Bruce Primary Care Provider Dr. Chandler Shannon Referring Provider CATRINA Love Attending Provider Dr. Lorna Bruce Attending Provider [phone] Dr. Lorna Bruce Referring Provider [phone] Lorna Bruce Primary Care Provider Dr. Lorna Bruce Referring Provider [phone] CATRINA Love Attending Provider Chandler Shannon DO Primary Care Provider Lorna Bruce Primary Care Unavailable Ana Love Attending Unavailable Lorna Bruce Referring Unavailable Ana Love Attending Unavailable Ana Love Referring Unavailable [place], Lorna Primary Care Unavailable Janis, Lorna Primary Care Unavailable Nimesh Garnett Attending Unavailable Nimesh Garnett Referring Unavailable Janis, Lorna Referring Unavailable Ana Love Attending Unavailable [place], Lorna Primary Care Unavailable Janis, Lorna Referring Unavailable Ana Love Attending Unavailable [place], Lorna Primary Care Unavailable Janis, Lorna Referring Unavailable Janis, Lorna Primary Care Unavailable Ana Love Attending Unavailable Allergies Allergy Classification Reported Allergen(s) Allergy Type Date of Onset Reaction(s) Facility (1 source) exenatide Drug Allergy 09-16-2018 Other [facility] Work Phone: Medications Current Medications Medication Drug Class(es) Dates Sig (Normalized) Sig (Original) aspirin 81 mg chewable tablet (10 sources) Platelet Aggregation Inhibitor, Nonsteroidal Anti-inflammatory Drug Start: 09-16-2018 take 81 mg by mouth once daily Aspirin Active 81 MG PO DAILY September 16, 2018 12:00am take 1 capsule by mouth once gregory ly Aspirin 81 MG capsule Take 81 mg by mouth daily. 0 Active cholecalciferol 0.05 mg oral capsule (9 sources) Vitamin D Start: 05-02-2022 take 50 ug by mouth once daily Cholecalciferol (Vitamin D3) Active 50 MCG PO DAILY May 02, 2022 1:00am take 1 capsule by mouth once gregory ly cholecalciferol (Vitamin D-3) 25 MCG (1000 UT) capsule Take 1,000 Units by mouth daily. 0 Active Continuous Blood Gluc Training Coordinator (FREESTYLE JIN 14 DAY READER) MYRIAM (1 source) Start: 11-12-2020 Continuous Blo od Gluc Training Coordinator (FREESTYLE JIN 14 DAY READER) MYRIAM 1 Units by Does not apply route daily E11.9 1 Device 0 11/12/2020 Active Continuous Blood Gluc Sensor (FREESTYLE JIN 14 DAY SENSOR) MISC (1 source) Start: 11-12-2020 Continuous Blo od Gluc Sensor (FREESTYLE JIN 14 DAY SENSOR) MISC 1 applicator by Does not apply route 3 times daily (before meals) E11.9 1 each 3 11/12/2020 Active 1 ml denosumab 60 mg/ml prefilled syringe (6 sources) RANK Ligand Inhibitor Start: 12-06-2022 End: 06-27-2023 Denosumab (Prolia) 60 mg/mL syringe Active 60 MG SC every 6 months June 27, 2023 8:38am 3 ml insulin aspart, human 100 unt/ml pen injector (6 sources) Insulin Analog Start: 03-01-2023 Insulin Aspart U-100 (Novolog Flexpen U-100 Insulin) 100 unit/mL (3 mL) insulin pen Active 18 UNIT SC THREE TIMES A DAY 16.2 March 01, 2023 1:00am Start: 11-29-2021 insulin aspart (NovoLOG FLEXPEN) 100 UNIT/ML pen 8 units with meals 0 11/29/2021 Active Start: 10-28-2020 insulin aspart (NOVOLOG FLEXPEN) 100 UNIT/ML injection pen 15 units with meals 5 pen 3 10/28/2020 Active 3 ml insulin degludec 100 unt/ml pen injector (8 sources) Insulin Analog Start: 11-27-2022 Insulin Deglud ec (Tresiba Flextouch U-100) 100 unit/mL (3 mL) insulin pen Active 17 UNIT SC AT BEDTIME November 27, 2022 9:33am Start: 04-03-2022 insulin deglud ec (Tresiba FlexTouch) 200 UNIT/ML injection 22 units daily 3 mL 3 04/03/2022 Active Start: 10-28-2020 Insulin Deglud ec (TRESIBA FLEXTOUCH) 200 UNIT/ML SOPN Inject 20 Units into the skin daily 5 pen 3 10/28/2020 Active raloxifene hydrochloride 60 mg oral tablet (18 sources) Estrogen Agonist/Antagonist Start: 09-16-2018 End: 04-04-2023 take 1 tablet by mouth once daily in the morning raloxifene (Evista) 60 MG tablet Take 1 tablet (60 mg) by mouth every morning. 30 tablet 3 04/03/2022 Active Completed/Discontinued Medications Medication Drug Class(es) Dates Sig (Normalized) Sig (Original) 0.65 ml exenatide 3.08 mg/ml pen injector (5 sources) GLP-1 Receptor Agonist Start: 09-16-2018 End: 09-20-2018 Exenatide Microspheres (Bydureon Pen) 2 MG/0.65 ML Ml Discontinued 2 MG SQ EVERY WEEK September 16, 2018 12:00am September 20, 2018 2:31pm Exenatide Microspheres (Bydureon Pen) 2 MG/0.65 ML Ml (1 source) Start: 09-16-2018 End: 09-20-2018 Exenatide Microspheres (Bydureon Pen) 2 MG/0.65 ML Ml Discontinued 2 MG SQ EVERY WEEK September 16, 2018 12:00am September 20, 2018 2:31pm Insulin Degludec (Tresiba Flextouch U-100) 100 unit/mL (3 mL) insulin pen (8 sources) Start: 08-24-2022 End: 11-27-2022 Insulin Degludec (Tresiba Flextouch U-100) 100 unit/mL (3 mL) insulin pen Discontinued 17 UNIT SC AT BEDTIME August 24, 2022 8:37am November 27, 2022 9:33am Start: 08-14-2022 End: 08-24-2022 Insulin Degludec (Tresiba Fl extouch U-100) 100 unit/mL (3 mL) insulin pen Discontinued 20 UNIT SC AT BEDTIME August 14, 2022 12:00am August 24, 2022 8:37am 3 ml insulin detemir 100 unt/ml pen injector (11 sources) Insulin Analog Start: 05-02-2022 End: 08-14-2022 Insulin Detemir U-100 (Levemir Flextouch U-100 Insuln) 100 unit/mL (3 mL) insulin pen Discontinued 22 UNIT SC DAILY May 02, 2022 1:55pm August 14, 2022 10:29am Start: 09-16-2018 End: 05-02-2022 Insulin Detemir U-100 (Levem ir Flextouch U100 Insulin) 100 UNITS/ML insulin pen Discontinued 22 UNITS SQ TWICE A DAY September 16, 2018 12:00am May 02, 2022 2:01pm Start: 09-16-2018 End: 05-02-2022 Insulin Detemir U-100 (Levem ir Flextouch U-100 Insuln) 100 UNITS/ML insulin pen Discontinued 22 UNITS SQ TWICE A DAY September 16, 2018 12:00am May 02, 2022 2:01pm 3 ml insulin glargine 100 unt/ml pen injector (6 sources) Insulin Analog Start: 09-20-2018 End: 05-02-2022 Insulin Glargine (Lantus Solostar U-100 Insulin) 100 UNITS/ML insulin pen Discontinued 18 UNITS SC AT BEDTIME 2 September 20, 2018 12:00am May 02, 2022 2:01pm 3 ml insulin lispro 100 unt/ml pen injector (19 sources) Insulin Analog Start: 05-02-2022 End: 03-01-2023 Insulin Lispro (Humalog Kwikpen Insulin) 100 unit/mL insulin pen Discontinued 18 UNIT SC THREE TIMES DAILY BEFORE MEALS 16.2 February 28, 2023 5:16pm March 01, 2023 4:29pm Start: 09-20-2018 End: 05-02-2022 Insulin Lispro (Humalog Kwik pen Insulin) 100 UNIT/ML insulin pen Discontinued 10 UNIT SC THREE TIMES DAILY BEFORE MEALS 10 September 20, 2018 12:00am May 02, 2022 2:01pm Start: 09-16-2018 End: 05-02-2022 inject 1 dose by subcutaneous injection once daily Insulin Lispro (Humalog Kwikpen Insulin) 100 UNIT/ML insulin pen Discontinued 4 - 20 UNIT SQ DAILY September 16, 2018 12:00am May 02, 2022 2:01pm CALL AND DOSE IS GIVEN BASED ON HER BGL RESULTS. lisinopril 2.5 mg oral tablet (8 sources) Angiotensin Converting Enzyme Inhibitor Start: 09-20-2018 End: 05-02-2022 take 2.5 mg by mouth once daily Lisinopril Discontinued 2.5 MG PO DAILY 30 September 20, 2018 12:00am May 02, 2022 2:01pm losartan potassium 25 mg oral tablet (15 sources) Angiotensin 2 Receptor Piotr Start: 04-05-2022 End: 05-28-2023 take 25 mg by mouth once daily Losartan Discontinued 25 MG PO DAILY February 05, 2023 12:26pm May 28, 2023 10:55am metFORMIN hydrochloride 1000 mg oral tablet (6 sources) Biguanide Start: 09-16-2018 End: 09-20-2018 take 1000 mg by mouth twice daily Metformin Discontinued 1000 MG PO TWICE A DAY September 16, 2018 12:00am September 20, 2018 2:32pm Problems Active Problems Problem Classification Problem Date Documented Da te Episodic/Chronic Administrative/social admission (1 source) Persons encountering health services in other specified circumstances; Translations: [Other reasons for seeking consultation] 08-24-2022 Episodic Diabetes mellitus with complications (20 sources) Type 1 diabetes mellitus; Translations: [Type 1 diabetes mellitus with unspecified complications] Onset: 10-28-2020 10-28-2020 Chronic Diabetes mellitus without complication (20 sources) Type 2 diabetes mellitus without complication; Translations: [Type 2 diabetes mellitus without complications] Onset: 07-28-2015 07-28-2015 Chronic Essential hypertension (14 sources) Hypertensive disorder; Translations: [Essential (primary) hypertension] Onset: 05-15-2024 12-04-2022 Chronic Fluid and electrolyte disorders (6 sources) Hypokalemia; Translations: [Hypokalemia] 09-20-2018 Episodic Genitourinary symptoms and ill-defined conditions (1 source) Proteinuria, unspecified; Translations: [Proteinuria, unspecified] Onset: 05-15-2024 Episodic Immunizations and screening for infectious disease (2 sources) Encounter for immunization; Translations: [Need for prophylactic vaccination and inoculation against unspecified single disease] 08-24-2022 Episodic Nutritional deficiencies (1 source) Vitamin D deficiency, unspecified; Translations: [Vitamin D deficiency, unspecified] Onset: 05-15-2024 Chronic Osteoporosis (3 sources) Osteoporosis; Translations: [Age-related osteoporosis without current pathological fracture] Onset: 05-15-2024 05-25-2022 Chronic Other bone disease and musculoskeletal deformities (4 sources) Osteopenia; Translations: [Other specified disorders of bone density and structure, unspecified site] 08-28-2022 Episodic Other bone disease and musculoskeletal deformities (10 sources) Other specified disorders of bone density and structure, unspecified site; Translations: [Disorder of bone and cartilage, unspecified] Onset: 08-13-2024 08-24-2022 Episodic Other endocrine disorders (6 sources) Hypoglycemia; Translations: [Drug-induced hypoglycemia without coma] 09-20-2018 Chronic Other non-traumatic joint disorders (1 source) Chronic pain of left upper limb; Translations: [Pain in left shoulder] Episodic Other nutritional; endocrine; and metabolic disorders (6 sources) Hypophosphatemia; Translations: [Other disorders of phosphorus metabolism] 09-20-2018 Chronic Other nutritional; endocrine; and metabolic disorders (2 sources) History of diabetes mellitus type 2; Translations: [Personal history of other endocrine, nutritional and metabolic disease] 09-20-2018 Episodic Other nutritional; endocrine; and metabolic disorders (5 sources) Overweight; Translations: [Overweight] 05-25-2022 Episodic Other nutritional; endocrine; and metabolic disorders (8 sources) Overweight; Translations: [Overweight] 05-25-2022 Episodic Other screening for suspected conditions (not mental disorders or infectious disease) (10 sources) Raised TSH level; Translations: [Other specified abnormal findings of blood chemistry] Onset: 04-07-2024 12-11-2022 Episodic Other upper respiratory infections (6 sources) Pharyngitis; Translations: [Acute pharyngitis, unspecified] 09-20-2018 Episodic Past or Other Problems Problem Classification Problem Date Documented Da te Episodic/Chronic Other connective tissue disease (4 sources) Adhesive capsulitis of right shoulder; Translations: [Adhesive capsulitis of right shoulder] Onset: 03-16-2017 03-16-2017 Episodic Other nutritional; endocrine; and metabolic disorders (1 source) Weight gain; Translations: [Abnormal weight gain] Episodic Residual codes; unclassified (5 sources) Menopause present; Translations: [Asymptomatic menopausal state] Onset: 07-28-2015 07-28-2015 Episodic Results Test Name Value Interpretation Reference Range Facility Endocrinology Visit Reporton 08-13-2024 Endocrinology Visit Report [facility] [address] [place] [address] OFFICE VISIT Date of Service: 08/13/24 MR#: [id number] Acct: [id number] Name: FADIA DUBON Rep #: [id number] : 1955 Provider: CATRINA mcneill Age/Sex: 69/F Location: [facility] [place] Status: Signed Intake Vital Signs 05/15/24 08:39 08/13/24 08:47 Height 5 ft 2 in 5 ft 2 in Weight: 158 lb 155 lb BMI 28.9 28.3 BP 169/76 H 145/78 H Blood Pressure Location Rt brachial Lt brachial Position Sitting Sitting Pulse 63 56 L Pulse Source Monitor Monitor Pulse Oximetry (%) 98 96 Oxygen Delivery Method room air room air Intake Visit Reasons: 3 M FU/Prolia - B B Chief Complaint: f/u diabetes Tutor Required: No Accompanied by: Self Is patient in pain?: No Allergies No Known Allergies Allergy (Verified 08/13/24 08:52) Medications ???Medication ???Instructions ???Recorded ???Confirmed ???Type aspirin 81 mg chewable tablet 81 mg PO DAILY 09/16/18 08/13/24 H istory cholecalciferol (vitamin D3) 50 50 mcg PO DAILY 05/02/22 08/13/24 History mcg (2,000 unit) capsule denosumab 60 mg/mL subcutaneous 60 mg subcut [id number] #1 mL 08/13/24 Rx syringe (Prolia) insulin NPH isoph U-100 human 100 30 unit (0.3 mL) subcut QAM #9 mL 11/07/23 08/13/24 Rx unit/mL (3 mL) subcutaneous pen (Humulin N NPH U-100 Insulin KwikPen) Tresiba FlexTouch U-100 100 17 unit (0.17 mL) subcut QHS #15 m L 11/28/23 08/13/24 Rx unit/mL (3 mL) subcutaneous pen (insulin degludec) insulin aspart U-100 100 unit/mL 18 unit (0.18 mL) subcut TID #16.2 12/03/23 08/13/24 Rx (3 mL) subcutaneous pen (Novolog mL FlexPen U-100 Insulin aspart) losartan 25 mg tablet 25 mg PO DAILY #90 tabs 07/14/24 0 08/13/24 Rx pen needle, diabetic 32 gauge x #100 ea 07/14/24 08/13/24 Rx 5/32 (BD Ultra-Fine Diana Pen Needle) Have you fallen in the past year?: No PFSH Medical History Abnormal results of thyroid function studies Cardiac murmur DKA (diabetic ketoacidoses) Surgical History H/O section Family History Mother Skin cancer Aunt Diabetes Other High cholesterol Social History current occupational status: retired current occupation: [employer] Smoking Status: Never smoker Electronic Cigarette Use: not used alcohol intake: current alcohol intake frequency: 0-2 drinks per day Alcohol type: beer details: beer substance use type: does not use what type of physical activity do you participate in: walking and other details: yard work frequency: 3-4 times per week do you feel safe at home: Yes HPI HPI Chief Complaint: f/u diabetes Details: FADIA DUBON, is a 69 F who presents to the office today for evaluation and management of diabetes. A1C today is 7.5%, increased slightly from 05/05/24 at 7.4%. She has lost 3 lbs since that time. Currently taking Tresiba 7 u once daily, N 7 u QHS, and Humalog 8-12 u TIDCM. CGM downloaded and reviewed: -she is having elevated blood sugars upon rising -she has DP -she is having rebound elevations after correcting for lows -she is having lows with increased activity. Denies any significant episode of hypoglycemia that has required assistance from others. BP controlled. Currently taking losartan 25 mg once daily. She has osteopenia with hx of fractures. She received Prolia 60 mg subq today in office. She takes vitamin D3 2,000 iu once daily. Labs are up to date. Denies any acute concerns. ROS Const Constitutional: Positive for weight change (gain); No fatigue ENT ENT: No dizziness/vertigo Cardio Cardiology: No chest pain at rest, chest pain with exertion, shortness of breath or palpitations Skin Skin: No wounds Endo Endocrine: Positive for weight change (gain); No fatigue Exam Const General: cooperative, healthy appearing, comfortable and no acute distress Nutritional Appearance: overweight Orientation: alert, awake and oriented x3 HENMT Head: normal to inspection Ears: hearing grossly normal bilaterally Nose: external nose normal Face and sinus: normal facial exam Eyes General: appearance normal, both eyes and all related structures Alignment and Position: alignment normal Sclera: sclerae normal Neck Neck: normal visual inspection Chest Chest palpation inspection: normal inspection of the chest Resp Effort Inspection: normal respiratory effort, able to speak in complete sentences, symmetric chest movement, normal respiratory pattern, no audible wheezes and no cough Auscultation: Bilatera (more content not included)... Normal [facility] Endocrinology Visit Reporton 05-15-2024 Endocrinology Visit Report [facility] [address] [place] [address] OFFICE VISIT Date of Service: 05/15/24 MR#: [id number] Acct: [id number] Name: FADIA DUBON Rep #: [id number] : 1955 Provider: CATRINA mcneill Age/Sex: 69/F [place] [facility] [place] Status: Signed Intake Vital Signs 02/14/24 08:01 05/15/24 08:39 Height 5 ft 2 in 5 ft 2 in Weight: 155 lb 6 oz 158 lb BMI 28.4 28.9 BP 154/78 H 169/76 H Blood Pressure Location Rt brachial Rt brachial Position Sitting Sitting Pulse 63 63 Pulse Source Monitor Monitor Pulse Oximetry (%) 97 98 Oxygen Delivery Method room air room air Intake Visit Reasons: 3 M FU Chief Complaint: f/u diabetes Is patient in pain?: No Allergies No Known Allergies Allergy (Verified 05/15/24 08:45) Medications ???Medication ???Instructions ???Recorded ???Confirmed ???Type aspirin 81 mg chewable tablet 81 mg PO DAILY 09/16/18 05/15/24 H istory cholecalciferol (vitamin D3) 50 50 mcg PO DAILY 05/02/22 05/15/24 History mcg (2,000 unit) capsule denosumab 60 mg/mL subcutaneous 60 mg subcut [id number] #1 mL 05/15/24 Rx syringe (Prolia) pen needle, diabetic 32 gauge x #100 ea 07/12/23 05/15/24 Rx 5/32 (BD Ultra-Fine Diana Pen Needle) insulin NPH isoph U-100 human 100 30 unit (0.3 mL) subcut QAM #9 mL 11/07/23 05/15/24 Rx unit/mL (3 mL) subcutaneous pen (Humulin N NPH U-100 Insulin KwikPen) Tresiba FlexTouch U-100 100 17 unit (0.17 mL) subcut QHS #15 m L 11/28/23 05/15/24 Rx unit/mL (3 mL) subcutaneous pen (insulin degludec) insulin aspart U-100 100 unit/mL 18 unit (0.18 mL) subcut TID #16.2 12/03/23 05/15/24 Rx (3 mL) subcutaneous pen (Novolog mL FlexPen U-100 Insulin aspart) losartan 25 mg tablet 25 mg PO DAILY #90 tabs 01/28/24 0 05/15/24 Rx Have you fallen in the past year?: No PFSH Medical History Abnormal results of thyroid function studies Cardiac murmur DKA (diabetic ketoacidoses) Surgical History H/O section Family History Mother Skin cancer Aunt Diabetes Other High cholesterol Social History current occupational status: retired current occupation: [employer] Smoking Status: Never smoker Electronic Cigarette Use: not used alcohol intake: current alcohol intake frequency: 0-2 drinks per day Alcohol type: beer details: beer substance use type: does not use what type of physical activity do you participate in: walking and other details: yard work frequency: 3-4 times per week do you feel safe at home: Yes HPI HPI Chief Complaint: f/u diabetes Details: FADIA DUBON, is a 69 F who presents to the office today for evaluation and management of diabetes. A1C today is 7.4%, increased slightly from 02/14/24 at 7.2%. she roldan s gained 3 lbs. Currently taking Tresiba 8 u once daily, N 7 u HS, and Humalog 8-12 u TIDCM. CGM downloaded and reviewed- she continues to struggle with DP, she is having lows between meals. Denies any significant episode of hypoglycemia that has required assistance from others. Eye exam was recently completed earlier this week and is stable. Initial BP today was 169/76. Repeat manual was 152/82. Currently taking losartan 25 mg once daily. Reports compliance with medication regimen. 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 She is going to work after her appointment today. She has osteopenia with hx of fractures. She takes Prolia 60 mg q6 months. She takes vitamin D3 2,000 iu once daily. Denies any recent fractures. Labs are up to date. She has had recurrent mildly elevated TSH with negative TPO antibodies. She has elected to monitor vs starting medication. Denies any acute concerns. ROS Const Constitutional: Positive for weight change (gain); No fatigue ENT ENT: No dizziness/vertigo Cardio Cardiology: No chest pain at rest, chest pain with exertion, shortness of breath or palpitations Skin Skin: No wounds Endo Endocrine: Positive for weight change (gain); No fatigue Exam Const General: cooperative, healthy appearing, comfortable and no acute distress Nutritional Appearance: overweight Orientation: alert, awake and oriented x3 HENMT Head: normal to inspection Ears: hearing grossly normal bilaterally Nose: external nose normal Face and sinus: normal facial exam Eyes General: appearance normal, both eyes and all related structures Alignment and Position: alignment normal Sclera: sclerae normal Neck Neck: normal visual in (more content not included)... Normal [facility] Thyroid Peroxidase ABon 11-2 THYR PEROX AB < 9 Normal 0-34 [facility] Comment on above: Result Comment: Perf ormed at: - [facility] [place] [id number] Seed Cleaner Operator: Bert Pulido PhD, Phone: [phone] Performed By: #### L 501.9520, [id number] ####[facility] [id number] [place], [address] Thyroid Stim Hormone (TSH)on 03-10-2024 TSH 5.820 uIU/mL High 0.358-3.740 [facility] Comment on above: Performed By: #### L 501.9520, L3300.6900 #### [facility] [address] [place], [place], [id number] CBC W/Diff, Automatedon - Absolute Lymph 2.25 X10 3/uL Normal 0.83-4.51 [facility] Comment on above: Performed By: #### L 502.0250, L506.1000, L500.4100, L500.4050, L501.9520, L100.0100 #### [facility] [address] [facility] [place], [address] Absolute Neut 2.2 X10 3/uL Normal 2.0-7.7 [facility] Comment on above: Performed By: #### L 502.0250, L506.1000, L500.4100, L500.4050, L501.9520, L100.0100 #### [facility] [address] [place], [address] Basophils/100 WBC (Bld) 0.4 % Normal 0-1 [facility] Comment on above: Performed By: #### L 502.0250, L506.1000, L500.4100, L500.4050, L501.9520, L100.0100 #### [facility] [address] [place], [address] Eosinophils/100 WBC (Bld) 4.3 % Normal 0-5 [facility] Comment on above: Performed By: #### L 502.0250, L506.1000, L500.4100, L500.4050, L501.9520, L100.0100 #### [facility] [address] [place], [address] Erythrocyte distribution width (RBC) [Ratio] 13.1 % Normal 11.6-14.6 [facility] Comment on above: Performed By: #### L 502.0250, L506.1000, L500.4100, L500.4050, L501.9520, L100.0100 #### [facility] [address] [place], [address] Hematocrit (Bld) [Volume fraction] 43.4 % Normal 37-47 [facility] Comment on above: Performed By: #### L 502.0250, L506.1000, L500.4100, L500.4050, L501.9520, L100.0100 #### [facility] [address] [place], [address] Hemoglobin (Bld) [Mass/Vol] 13.7 g/dL Normal 12.0-15.0 [facility] Comment on above: Performed By: #### L 502.0250, L506.1000, L500.4100, L500.4050, L501.9520, L100.0100 #### [facility] [address] [place], [address] IG% 0.400 Normal 0.0-0.9 [facility] Comment on above: Result Comment: IG% - Immature Granulocytes (promyelocytes, myelocytes and metamyelocytes) > 1% indicates that a LEFT SHIFT is Present. Performed By: #### L 502.0250, L506.1000, L500.4100, L500.4050, L501.9520, L100.0100 #### [facility] [address] [place], [address] Lymphocytes/100 WBC (Bld) 42.5 % High 19-41 [facility] Comment on above: Performed By: #### L 502.0250, L506.1000, L500.4100, L500.4050, L501.9520, L100.0100 #### [facility] [address] [place], [address] MCH (RBC) [Entitic mass] 31.0 pg Normal 27.0-32.0 [facility] Comment on above: Performed By: #### L 502.0250, L506.1000, L500.4100, L500.4050, L501.9520, L100.0100 #### [facility] [address] [place], [address] MCHC (RBC) [Mass/Vol] 31.6 g/dL Low 32-36 [facility] Comment on above: Performed By: #### L 502.0250, L506.1000, L500.4100, L500.4050, L501.9520, L100.0100 #### [facility] [address] [place], [address] MCV (RBC) [Entitic vol] 98.2 fL Normal 81-99 [facility] Comment on above: Performed By: #### L 502.0250, L506.1000, L500.4100, L500.4050, L501.9520, L100.0100 #### [facility] [address] [place], [address] Monocytes/100 WBC (Bld) 11.5 % High 0-10 [facility] Comment on above: Performed By: #### L 502.0250, L506.1000, L500.4100, L500.4050, L501.9520, L100.0100 #### [facility] [address] [place], [address] Neutrophils/100 WBC (Bld) 40.9 % Low 47-70 [facility] Comment on above: Performed By: #### L 502.0250, L506.1000, L500.4100, L500.4050, L501.9520, L100.0100 #### [facility] [address] [place], [address] Nucleated RBC (Bld) [#/Vol] 0 10*3/uL Normal 0-5 [facility] Comment on above: Performed By: #### L 502.0250, L506.1000, L500.4100, L500.4050, L501.9520, L100.0100 #### [facility] [address] [place], [address] Platelet mean volume (Bld) [Entitic vol] 9.8 fL Normal 6.2-12.0 [facility] Comment on above: Performed By: #### L 502.0250, L506.1000, L500.4100, L500.4050, L501.9520, L100.0100 #### [facility] [address] [place], [address] Platelets (Bld) [#/Vol] 339 10*3/uL Normal 150-450 [facility] Comment on above: Performed By: #### L 502.0250, L506.1000, L500.4100, L500.4050, L501.9520, L100.0100 #### [facility] [address] [place], [address] RBC (Bld) [#/Vol] 4.42 10*6/uL Normal 4.2-5.4 [facility] Comment on above: Performed By: #### L 502.0250, L506.1000, L500.4100, L500.4050, L501.9520, L100.0100 #### [facility] [address] [place], [address] RDW SD 47.3 fl High 35.1-43.9 [facility] Comment on above: Performed By: #### L 502.0250, L506.1000, L500.4100, L500.4050, L501.9520, L100.0100 #### [facility] [address] [place], [address] WBC (Bld) [#/Vol] 5.3 10*3/uL Normal 4.4-11.0 [facility] Comment on above: Performed By: #### L 502.0250, L506.1000, L500.4100, L500.4050, L501.9520, L100.0100 #### [facility] [address] [place], [address] Comprehensive Metabolic Prof ilon 02-15-2024 Albumin [Mass/Vol] 3.6 g/dL Normal 3.2-5.0 [facility] Comment on above: Performed By: #### L 502.0250, L506.1000, L500.4100, L500.4050, L501.9520, L100.0100 #### [facility] [address] [place], [address] Albumin/Globulin [Mass ratio] 1.0 {ratio} Normal 0.9-2.4 [facility] Comment on above: Performed By: #### L 502.0250, L506.1000, L500.4100, L500.4050, L501.9520, L100.0100 #### [facility] [address] [place], [address] ALK P 91 U/L Normal 45-117 [facility] Comment on above: Performed By: #### L 502.0250, L506.1000, L500.4100, L500.4050, L501.9520, L100.0100 #### [facility] [address] [place], [address] ALT [Catalytic activity/Vol] 20 U/L Normal 13-56 [facility] Comment on above: Performed By: #### L 502.0250, L506.1000, L500.4100, L500.4050, L501.9520, L100.0100 #### [facility] [address] [place], [address] AST [Catalytic activity/Vol] 14 U/L Low 15-37 [facility] Comment on above: Performed By: #### L 502.0250, L506.1000, L500.4100, L500.4050, L501.9520, L100.0100 #### [facility] [address] [place], [address] Bilirubin [Mass/Vol] 0.50 mg/dL Normal 0.20-1.00 [facility] Comment on above: Result Comment: For patients on eltrombopag therapy, use of Dimension [place] TBIL is not recommended. Performed By: #### L 502.0250, L506.1000, L500.4100, L500.4050, L501.9520, L100.0100 #### [facility] [address] [place], [address] BUN/CRE 15.2 RATIO Normal 10-20 [facility] Comment on above: Performed By: #### L 502.0250, L506.1000, L500.4100, L500.4050, L501.9520, L100.0100 #### [facility] [address] [place], [address] CA,Total 8.8 mg/dL Normal 8.5-10.1 [facility] Comment on above: Performed By: #### L 502.0250, L506.1000, L500.4100, L500.4050, L501.9520, L100.0100 #### [facility] [address] [place], [address] Chloride [Moles/Vol] 107 mmol/L Normal 98-107 [facility] Comment on above: Performed By: #### L 502.0250, L506.1000, L500.4100, L500.4050, L501.9520, L100.0100 #### [facility] [address] [place], [address] CO2 [Moles/Vol] 30.0 mmol/L Normal 21.0-32.0 [facility] Comment on above: Performed By: #### L 502.0250, L506.1000, L500.4100, L500.4050, L501.9520, L100.0100 #### [facility] [address] [place], [address] Creatinine [Mass/Vol] 0.72 mg/dL Normal 0.55-1.02 [facility] Comment on above: Result Comment: The validity of the calculated GFR GFRAA in patients over 70 years has not been determined. Clinical correlation is essential. Performed By: #### L 502.0250, L506.1000, L500.4100, L500.4050, L501.9520, L100.0100 #### [facility] [address] [place], [address] EST GFR - AA 103 mL/min Normal >60 [facility] Comment on above: Result Comment: Afri can Wallisian GFR Calc Performed By: #### L 502.0250, L506.1000, L500.4100, L500.4050, L501.9520, L100.0100 #### [facility] [address] [place], [address] GAP 3 Low 5-15 [facility] Comment on above: Performed By: #### L 502.0250, L506.1000, L500.4100, L500.4050, L501.9520, L100.0100 #### [facility] [address] [place], [address] GFR/1.73 sq M.predicted among non-blacks MDRD (S/P/Bld) [Vol rate/Area] 85 mL/min/{1.73_m2} Normal >60 [facility] Comment on above: Result Comment: Non- GFR Calc Performed By: #### L 502.0250, L506.1000, L500.4100, L500.4050, L501.9520, L100.0100 #### [facility] [address] [place], [address] Globulin (S) [Mass/Vol] 3.7 g/dL Normal 2.2-4.2 [facility] Comment on above: Performed By: #### L 502.0250, L506.1000, L500.4100, L500.4050, L501.9520, L100.0100 #### [facility] [address] [place], [address] Glucose [Mass/Vol] 133 mg/dL High 74-106 [facility] Comment on above: Result Comment: Fast ing Glucose result greater than or equal to 126 mg/dL suggests DIABETES MELLITUS per A.D.A. criteria. Performed By: #### L 502.0250, L506.1000, L500.4100, L500.4050, L501.9520, L100.0100 #### [facility] [address] [place], [address] Potassium [Moles/Vol] 4.2 mmol/L Normal 3.5-5.1 [facility] Comment on above: Performed By: #### L 502.0250, L506.1000, L500.4100, L500.4050, L501.9520, L100.0100 #### [facility] [address] [place], [address] Sodium [Moles/Vol] 140 mmol/L Normal 136-145 [facility] Comment on above: Performed By: #### L 502.0250, L506.1000, L500.4100, L500.4050, L501.9520, L100.0100 #### [facility] [address] [place], [address] T PROT 7.3 g/dL Normal 6.4-8.2 [facility] Comment on above: Performed By: #### L 502.0250, L506.1000, L500.4100, L500.4050, L501.9520, L100.0100 #### [facility] [address] [place], [address] Urea nitrogen [Mass/Vol] 11 mg/dL Normal 7-18 [facility] Comment on above: Performed By: #### L 502.0250, L506.1000, L500.4100, L500.4050, L501.9520, L100.0100 #### [facility] [address] [place], [address] Lipid Profileon 02-15-2024 Cholesterol [Mass/Vol] 201 mg/dL High 200 [facility] Comment on above: Result Comment: <200 mg/dL Desirable 200-240 mg/dL Borderline >240 mg/dL High Risk Performed By: #### L 502.0250, L506.1000, L500.4100, L500.4050, L501.9520, L100.0100 #### [facility] [address] [place], [address] Cholesterol in HDL [Mass/Vol] 110 mg/dL Normal [facility] Comment on above: Result Comment: The drugs N-Acetylcysteine and Metamizole may falsely depress this assay. Reference Range HDL <40 mg/dL Low HDL Cholesterol HDL >or= 60 mg/dL High HDL Cholesterol Performed By: #### L 502.0250, L506.1000, L500.4100, L500.4050, L501.9520, L100.0100 #### [facility] [address] [place], [address] Cholesterol in LDL [Mass/Vol] 81 mg/dL Normal 0-130 [facility] Comment on above: Performed By: #### L 502.0250, L506.1000, L500.4100, L500.4050, L501.9520, L100.0100 #### [facility] [address] [place], [address] Cholesterol in VLDL [Mass/Vol] 10 mg/dL Normal 5-40 [facility] Comment on above: Performed By: #### L 502.0250, L506.1000, L500.4100, L500.4050, L501.9520, L100.0100 #### [facility] [address] [place], [address] Triglyceride [Mass/Vol] 50 mg/dL Normal [facility] Comment on above: Result Comment: The drugs N-Acetylcysteine and Metamizole may falsely depress this assay. Serum Triglycerides Reference Interval Normal <150 mg/dL Borderline high 150 - 199 mg/dL High 200 - 499 mg/dL Very High > or = 500 mg/dL Performed By: #### L 502.0250, L506.1000, L500.4100, L500.4050, L501.9520, L100.0100 #### [facility] [address] [place], [address] Microalb:Creat Ratio,Random URon 02-15-2024 Creatinine [Mass/Vol] 119.00 mg/dL Normal NO RANGE EST . [facility] Comment on above: Performed By: #### L 502.0250, L506.1000, L500.4100, L500.4050, L501.9520, L100.0100 #### [facility] [address] [place], [address] MALB:CRE 6.2 mg/g CRE Normal <30 mg/g CRE [facility] Comment on above: Performed By: #### L 502.0250, L506.1000, L500.4100, L500.4050, L501.9520, L100.0100 #### [facility] [address] [place], [address] MICROALBUMIN,UR 7.4 mg/L Normal NO RANGE EST. [facility] Comment on above: Performed By: #### L 502.0250, L506.1000, L500.4100, L500.4050, L501.9520, L100.0100 #### [facility] [address] [place], [address] Thyroid Stim Hormone (TSH)on 02-15-2024 TSH 4.160 uIU/mL High 0.358-3.740 [facility] Comment on above: Performed By: #### L 502.0250, L506.1000, L500.4100, L500.4050, L501.9520, L100.0100 #### [facility] [address] [place], [place], [address] Vitamin D,25 Hydroxyon 02-14 Vitamin D 25-OH 36.8 ng/mL Normal [facility] Comment on above: Result Comment: Samara min D 25(OH) Status Range Deficiency <20 ng/mL (50nmol/L) Insufficiency 20 - 30 ng/mL (50 - 75 nmol/L) Sufficiency 30 - 100 ng/mL (75 - 250 nmol/L) Toxicity >100 ng/mL (>250 nmol/L) Performed By: #### L 502.0250, L506.1000, L500.4100, L500.4050, L501.9520, L100.0100 #### [facility] [address] [place], [address] Endocrinology Visit Reporton 02-14-2024 Endocrinology Visit Report [facility] [address] [place], [place] [address] OFFICE VISIT Date of Service: 02/14/24 MR#: [id number] Acct: [id number] Name: FADIA DUBON Rep #: [id number] : 1955 Provider: CATRINA mcneill Age/Sex: 68/F Location: [facility] [place] Status: Signed Intake Vital Signs 11/07/23 08:10 02/14/24 08:01 Height 5 ft 2 in 5 ft 2 in Weight: 155 lb 155 lb 6 oz BMI 28.3 28.4 BP 128/71 H 154/78 H Blood Pressure Location Lt brachial Rt brachial Position Sitting Sitting Pulse 55 L 63 Pulse Source Monitor Monitor Pulse Oximetry (%) 96 97 Oxygen Delivery Method room air room air Intake Visit Reasons: 4 M FU Chief Complaint: f/u diabetes Allergies No Known Allergies Allergy (Verified 11/07/23 08:14) Medications ???Medication ???Instructions ???Recorded ???Confirmed ???Type aspirin 81 mg chewable tablet 81 mg PO DAILY 09/16/18 02/14/24 History cholecalciferol (vitamin D3) 50 50 mcg PO DAILY 05/02/22 02/14/24 History mcg (2,000 unit) capsule denosumab 60 mg/mL subcutaneous 60 mg subcut [id number] #1 mL 06/27/23 02/14/24 Rx syringe (Prolia) pen needle, diabetic 32 gauge x #100 ea 07/12/23 02/14/24 Rx /32 (BD Ultra-Fine Diana Pen Needle) insulin NPH isoph U-100 human 100 30 unit (0.3 mL) subcut QAM #9 mL 11/07/23 02/14/24 Rx unit/mL (3 mL) subcutaneous pen (Humulin N NPH U-100 Insulin KwikPen) Tresiba FlexTouch U-100 100 17 unit (0.17 mL) subcut QHS #15 mL 11/28/23 02/14/24 Rx unit/mL (3 mL) subcutaneous pen (insulin degludec) insulin aspart U-100 100 unit/mL 18 unit (0.18 mL) subcut TID #16.2 12/03/23 02/14/24 Rx (3 mL) subcutaneous pen (Novolog mL FlexPen U-100 Insulin aspart) losartan 25 mg tablet 25 mg PO DAILY #90 tabs 01/28/24 02/14/24 Rx Have you fallen in the past year?: No PFSH Medical History Cardiac murmur DKA (diabetic ketoacidoses) Surgical History H/O section Family History Mother Skin cancer Aunt Diabetes Other High cholesterol Social History current occupational status: retired current occupation: [employer] Smoking Status: Never smoker Electronic Cigarette Use: not used alcohol intake: current alcohol intake frequency: 0-2 drinks per day Alcohol type: beer details: beer substance use type: does not use what type of physical activity do you participate in: walking and other details: yard work frequency: 3-4 times per week do you feel safe at home: Yes HPI HPI Chief Complaint: f/u diabetes Details: FADIA DUBON, is a 68 F who presents to the office today for evaluation and management of diabetes. A1C today is 7.2%, increased from 10/16/23 at 6.8%. Weight is stable. Currently Levemir 9 u once daily and Humalog 8-12 u TIDCM. She was prescribed N at her last appointment but did not feel like it was helping. She resumed 4 injections of Humalog in the middle of the night to address DP. CGM downloaded and reviewed- DP continues to be poorly controlled. She is having lows after correcting for elevations. Denies any significant episodes of hypoglycemia that have required assistance from others. BP initially elevated at 154/74, repeat manual BP 130/70. She reports that she was nervous about receiving her Prolia injection at today's appointment. Currently taking losartan 25 mg once daily. Reports compliance with medication regimen. She has had slightly elevated TSH in last labs with negative TPO. Discussed levothyroxine vs monitoring- at that time she chose to continue monitoring. She is due for routine labs. Denies any acute concerns. ROS Const Constitutional: Positive for other (ROS negative x10 body systems); No fatigue or weight change ENT ENT: No dizziness/vertigo Cardio Cardiology: No chest pain at rest, chest pain with exertion, shortness of breath or palpitations Skin Skin: No wounds Endo Endocrine: No fatigue or weight change Exam Const General: cooperative, healthy appearing, comfortable and no acute distress Nutritional Appearance: overweight Orientation: alert, awake and oriented x3 HENMT Head: normal to inspection Ears: hearing grossly normal bilaterally Nose: external nose normal Face and sinus: normal facial exam Eyes General: appearance normal, both eyes and all related structures Alignment and Position: alignment normal Sclera: sclerae normal Neck Neck: normal visual inspection Carotids: normal carotid upstroke Chest Chest palpation inspection: normal inspection of the chest Resp Effort Inspection: normal respiratory effo (more content not included)... Normal [facility] Endocrinology Visit Reporton 11-07-2023 Endocrinology Visit Report [facility] [address] [place] [address] [address] [place] [address] OFFICE VISIT Date of Service: 11/07/23 MR#: [id number] Acct: [id number] Name: FADIA DUBON Rep #: [id number] : 1955 Provider: MULTIGRAPH OPERATOR-C Ana Robson rson Age/Sex: 68/F Location: [facility] Status: Signed Intake Vital Signs 07/03/23 11:25 11/07/23 08:10 Height 5 ft 2 in 5 ft 2 in Weight: 158 lb 155 lb BMI 28.9 28.3 BP 135/75 H 128/71 H Blood Pressure Location Lt brachial Lt brachial Position Sitting Sitting Pulse 54 L 55 L Pulse Source Monitor Monitor Temp 98.2 F Temp Source Temporal Pulse Oximetry (%) 97 96 Oxygen Delivery Method room air room air Intake Visit Reasons: 4 M FU Chief Complaint: f/u diabetes Tutor Required: No Accompanied by: Self Is patient in pain?: No Allergies No Known Allergies Allergy (Verified 11/07/23 08:14) Medications ???Medication ???Instructions ???Recorded ???Confirmed ???Type aspirin 81 mg chewable tablet 81 mg PO DAILY 09/16/18 11/07/23 History cholecalciferol (vitamin D3) 50 50 mcg PO DAILY 05/02/22 11/07/23 History mcg (2,000 unit) capsule Tresiba FlexTouch U-100 100 17 unit (0.17 mL) subcut QHS #15 mL 11/27/22 11/07/23 Rx unit/mL (3 mL) subcutaneous pen (insulin degludec) insulin aspart U-100 100 unit/mL 18 unit (0.18 mL) subcut TID #16.2 03/01/23 11/07/23 Rx (3 mL) subcutaneous pen (Novolog mL FlexPen U-100 Insulin aspart) losartan 25 mg tablet 25 mg PO DAILY #90 tabs 05/28/23 11/07/23 Rx denosumab 60 mg/mL subcutaneous 60 mg subcut [id number] #1 mL 06/27/23 11/07/23 Rx syringe (Prolia) pen needle, diabetic 32 gauge x #100 ea 07/12/23 11/07/23 Rx 5/32 (BD Ultra-Fine Diana Pen Needle) insulin NPH isoph U-100 human 100 30 unit (0.3 mL) subcut QAM #9 mL 11/07/23 11/07/23 Rx unit/mL (3 mL) subcutaneous pen (Humulin N NPH U-100 Insulin KwikPen) Have you fallen in the past year?: No [facility] Medical History Cardiac murmur DKA (diabetic ketoacidoses) Surgical History H/O section Family History Mother Skin cancer Aunt Diabetes Other High cholesterol Social History current occupational status: retired current occupation: [employer] Smoking Status: Never smoker Electronic Cigarette Use: not used alcohol intake: current alcohol intake frequency: 0-2 drinks per day Alcohol type: beer details: beer substance use type: does not use what type of physical activity do you participate in: walking and other details: yard work frequency: 3-4 times per week do you feel safe at home: Yes HPI HPI Chief Complaint: f/u diabetes Details: FADIA DUBON, is a 68 F who presents to the office today for evaluation and management of diabetes. A1C today is 6.8%, improved from 07/03/23 at 7.2%. She has lost 3 lbs. Currently taking Levemir 9 u once daily and Humalog 8-12 u TIDCM depending on carb servings at meals. She continues to injection 2-4 u of Humalog in the middle of the night to address DP. CGM downloaded and reviewed- she is having lows after treating DP. She is having lows with increased physical activity. Denies any significant episodes of hypoglycemia that have required assistance from others. BP today is 128/71, improved from 07/03/23 at 135/75. Currently taking losartan 25 mg once daily. Hx of elevated TSH. TPO antibodies are negative, TSH trending downward in June labs. Plan has been monitoring in routine labs. Hx of osteopenia. She received Prolia injection in June of this year. She is not due again until this fall. Currently taking vitamin D3 2,000 iu once daily. Denies any acute concerns. ROS Const Constitutional: Positive for weight change (intentional loss) ENT ENT: Positive for dental pain Endo Endocrine: Positive for weight change (intentional loss) Exam Const General: cooperative, healthy appearing, comfortable and no acute distress Nutritional Appearance: overweight Orientation: alert, awake and oriented x3 HENMT Head: normal to inspection Ears: hearing grossly normal bilaterally Nose: external nose normal Face and sinus: normal facial exam Eyes General: appearance normal, both eyes and all related structures Alignment and Position: alignment normal Sclera: sclerae normal Neck Neck: normal visual inspection Carotids: normal carotid upstroke Chest Chest palpation inspection: normal inspection of the chest Resp Effort Inspection: normal respiratory effort, able to speak in complete sentences, symmetric chest movement, normal respiratory pattern, no au (more content not included)... Normal [facility] Absolute lymphocyte countOrd ered By: Lorna Bruce on 07-12-2023 Lymphocytes Auto (Unsp spec) [#/Vol] 2.01 10*3/uL 0.83-4.51 [facility] Automated lymphocyte count a s percentage of total leukocytesOrdered By: Lorna Bruce on 07-12-2023 Lymphocytes/100 WBC Auto (Unsp spec) 30.7 % 19-41 [facility] Basophil percentageOrdered B y: Lorna Bruce on 07-12-2023 Basophils/100 WBC (Bld) 0.3 % 0-1 [facility] Eosinophils/100 WBC (Bld) 3.8 % 0-5 [facility] Hemoglobin (Bld) [Mass/Vol] 14.2 g/dL 12.0-15.0 [facility] Monocytes/100 WBC (Bld) 8.7 % 0-10 [facility] Neutrophils (Bld) [#/Vol] 3.7 10*3/uL 2.0-7.7 [facility] Neutrophils/100 WBC (Bld) 56.3 % 47-70 [facility] WBC (Bld) [#/Vol] 6.5 10*3/uL 4.4-11.0 [facility] Determination of erythrocyte mean corpuscular volume (MCV)Ordered By: Lorna Bruce on 07-12-2023 MCV (RBC) [Entitic vol] 97.3 fL 81-99 [facility] Erythrocyte distribution wid th ratioOrdered By: Lorna Bruce on 07-12-2023 Erythrocyte distribution width (RBC) [Ratio] 12.9 % 11.6-14.6 [facility] Erythrocyte distribution wid th standard deviationOrdered By: Lorna Bruce on 07-12-2023 Erythrocyte distribution width (RBC) [Entitic vol] 46.5 fL 35.1-43.9 [facility] Hematocrit Auto (Bld) [Volum e fraction]Ordered By: Lorna Bruce on 07-12-2023 Hematocrit (Bld) [Volume fraction] 43.8 % 37-47 [facility] Immature granulocytes/100 WB C Auto (Bld)Ordered By: Lorna Bruce on 07-12-2023 Immature granulocytes/100 WBC (Bld) 0.200 % 0.0-0.9 [facility] Comment on above: IG% - Immature Granu locytes (promyelocytes, myelocytes and metamyelocytes) > 1% indicates that a LEFT SHIFT is Present. Laboratory - Hematology and Cell countsOrdered By: Lorna Bruce on 07-12-2023 MCH (RBC) [Entitic mass] 31.6 pg 27.0-32.0 [facility] MCHC (RBC) [Mass/Vol] 32.4 g/dL 32-36 [facility] Nucleated RBC/100 WBC (Bld) [Ratio] 0 % 0-5 [facility] Platelet mean volume (Bld) [Entitic vol] 9.9 fL 6.2-12.0 [facility] Platelets (Bld) [#/Vol] 334 10*3/uL 150-450 [facility] RBC Auto (Bld) [#/Vol]Ordere d By: Lorna Bruce on 07-12-2023 RBC (Bld) [#/Vol] 4.50 10*6/uL 4.2-5.4 [facility] Serum or plasma thyroid stim ulating hormone (TSH) measurement (units/volume)Ordered By: Ana Love on 07-12-2023 TSH Qn 4.45 uIU/mL 0.358-3.74 [facility] Serum or plasma thyroperoxid ase antibody assay (units/volume)Ordered By: Ana Love on 07-12-2023 TPO Ab Qn [IU]/mL 0-34 [facility] Comment on above: Performed at: [address] [id number] Director: Bert Pulido PhD, Phone: [phone] Laboratory - Hematology and Cell countson 04-04-2023 HbA1c (Bld) [Mass fraction] 8.2 % 4.2-6.3 [facility] Basophil percentageOrdered B y: Ana Love on 12-08-2022 Bilirubin [Mass/Vol] 0.40 mg/dL 0.20-1.00 [facility] Comment on above: For patients on eltr ombopag therapy, use of Dimension [place] TBIL is not recommended. Chloride [Moles/Vol] 105 mmol/L 98-107 [facility] Cholesterol [Mass/Vol] 176 mg/dL <200 [facility] Comment on above: <200 mg/dL Desirable 200-240 mg/dL Borderline >240 mg/dL High Risk Glucose [Mass/Vol] 292 mg/dL 74-106 [facility] Comment on above: Glucose result great er than or equal to 200 mg/dLsuggests DIABETES MELLITUS per A.D.A. criteria. Potassium [Moles/Vol] 4.4 mmol/L 3.5-5.1 [facility] Protein [Mass/Vol] 7.1 g/dL 6.4-8.2 [facility] Sodium [Moles/Vol] 138 mmol/L 136-145 [facility] Triglyceride [Mass/Vol] 78 mg/dL <199 [facility] Comment on above: The drugs N-Acetylcy steine and Metamizole may falsely depress this assay.Serum Triglycerides Reference Interval Normal <150 mg/dL Borderline high 150 - 199 mg/dL High 200 - 499 mg/dL Very High > or = 500 mg/dL Laboratory - Chemistry and C hemistry - challengeOrdered By: Ana Love on 12-08-2022 ALP [Catalytic activity/Vol] 81 U/L 45-117 [facility] ALT [Catalytic activity/Vol] 28 U/L 13-56 [facility] CO2 [Moles/Vol] 31.0 mmol/L 21.0-32.0 [facility] Globulin (S) [Mass/Vol] 3.8 g/dL 2.2-4.2 [facility] Urea nitrogen/Creatinine [Mass ratio] 18.8 mg/mg 10-20 [facility] No Panel InformationOrdered By: Ana Love on 12-08-2022 Estimated GFR (MDRD) Amer 100 mL/min >60 [facility] Comment on above: GFR Calc Estimated GFR (MDRD) Non-Af Amer 82 mL/min >60 [facility] Comment on above: Non- GFR Calc Thyroid Stimulating Hormone (TSH) 5.36 uIU/mL 0.358-3.74 [facility] Urine Microalbumin/Creatinine Ratio 9.9 mg/g CRE <30 [facility] Vitamin D 25-Hydroxy 50.3 ng/mL [facility] Comment on above: Vitamin D 25(OH) Sta tus Range Deficiency <20 ng/mL (50nmol/L) Insufficiency 20 - 30 ng/mL (50 - 75 nmol/L) Sufficiency 30 - 100 ng/mL (75 - 250 nmol/L) Toxicity >100 ng/mL (>250 nmol/L) Serum or plasma albumin dev urement (mass/volume)Ordered By: Ana Love on 12-08-2022 Albumin [Mass/Vol] 3.3 g/dL 3.2-5.0 [facility] Serum or plasma albumin/glob ulin mass ratioOrdered By: Ana Love on 12-08-2022 Albumin/Globulin [Mass ratio] 0.9 {ratio} 0.9-2.4 [facility] Serum or plasma calcium dev urement (mass/volume)Ordered By: Ana Love on 12-08-2022 Calcium [Mass/Vol] 8.5 mg/dL 8.5-10.1 [facility] Serum or plasma cholesterol in HDL measurement (mass/volume)Ordered By: Ana Love on 12-08-2022 Cholesterol in HDL [Mass/Vol] 82 mg/dL >40 [facility] Comment on above: The drugs N-Acetylcy steine and Metamizole may falsely depress this assay. Reference Range HDL <40 mg/dL Low HDL Cholesterol HDL >or= 60 mg/dL High HDL Cholesterol Serum or plasma cholesterol in VLDL measurement (mass/volume)Ordered By: Ana Love on 12-08-2022 Cholesterol in VLDL [Mass/Vol] 16 mg/dL 5-40 [facility] Serum or plasma creatinine m easurement (mass/volume)Ordered By: Ana Love on 12-08-2022 Creatinine [Mass/Vol] 0.74 mg/dL 0.55-1.02 [facility] Comment on above: The validity of the calculated GFR & GFRAA in patients over 70 years has not been determined. Clinical correlation is essential. Serum or plasma low density lipoprotein (LDL) cholesterol measurement (mass/volume)Ordered By: Ana Love on 12-08-2022 Cholesterol in LDL [Mass/Vol] 78 mg/dL 0-130 [facility] Serum or plasma thyroperoxid ase antibody assay (units/volume)Ordered By: Ana Love on 12-08-2022 TPO Ab Qn 9 [IU]/mL 0-34 [facility] Comment on above: Performed at: [address] Director: Bert Pulido PhD, Phone: [phone] Serum or plasma urea nitroge n measurement (mass/volume)Ordered By: Ana Love on 12-08-2022 Urea nitrogen [Mass/Vol] 14 mg/dL 7-18 [facility] Thin prep Papanicolaou smear with manual screeningOrdered By: Ana Love on 12-08-2022 Thin prep Papanicolaou smear with manual screening 13 U/L 15-37 [facility] Thin prep Papanicolaou smear with manual screening 2 5-15 [facility] Thin prep Papanicolaou smear with manual screening 8.2 mg/L NO RANGE EST. [facility] Urine creatinine measurement (mass/volume)Ordered By: Ana Love on 12-08-2022 Creatinine (U) [Mass/Vol] 82.60 mg/dL NO RANGE EST. [facility] Laboratory - Hematology and Cell countson 12-04-2022 HbA1c (Bld) [Mass fraction] 7.4 % 4.2-6.3 [facility] 36on 07-25-2022 36 Will watch for fax t o arrive. Normal 140 Proof System [facility] 36 Name of caller: Rosemary Contact phone number: [phone] Relationship to Patient: From [facility] Diabetics Provider: Dr Escobedo Practice: [facility] Chief Complaint/Reason for Call: Rosemary sent over diabetes supplies and is requesting an order to be sent back Best time of day caller can be reached: Any Patient advised that office/PCP has 24-48 business hours to return their call: Yes [facility] Laboratory - Hematology and Cell countson 05-25-2022 HbA1c (Bld) [Mass fraction] 8.2 % [facility] 36on 04-23-2022 36 In addition to most previous note blood sugars before her lunch she feels range between 112-144 [facility] 36 I called this patien t earlier today regarding her blood sugar readings since starting the new mealtime insulin regimen. Fasting blood sugar this morning was 126. Yesterday 96. On occasion patient may get a low reading after breakfast. The blood sugars that were elevated before her evening snack have come down. Patient is happy with her blood sugar readings. Continues with 6 units for breakfast, 8 units around her lunchtime, and 4 units her somewhat dinner [facility] Progress Noteon 04-23-2022 Progress Note error [facility] 36on 04-13-2022 36 Placed call to patient. Was able to speak to patient. All concerns in message have been addressed. [facility] 36 Tell pt that the chest xray is normal.Will need to let me know if cough no better in 1-2 weeks after changing from lisinopril to losartan [facility] 36on 04-12-2022 36 Talked to Medical Records and they are faxing over results of x-rays, results are scanned into media for review. [place] [address] Patients chest xray results are scanned into her chart for you to review [facility] 36on 04-11-2022 36 Talked to Medical records at [facility] and patient just had the chest x-ray done today and so we will need to call them at [phone] tomorrow to have results faxed over. [place] [address] Would like staff to call [facility] and see if can get results CXR recently had done [place] [address] I called pt to see how blood sugars were running new insulin instructions.since eats light evening and there were some low early in the am blood sugars instructed to take 6 units around that dinner/snack.FBS this am 148. Was to take 10 units novolog with breakfast and lunch since was having high readings at lunch and dinner. 2 days ago took 10 units but shortly after blood sugar dropped to 58. This am decreased to 8 units but still felt sugar dropped but didn't take it bc was out. ate a snack. Took only 5 units with lunch today. Will call me with this evening with blood sugar.will most likely be on novolog 6 units breakfast,8 units lunch and 6 units dinner/snack. Of interest a couple of years ago pt was in the hospital with a blood sugar around 590.Pt recently started losartan in place of lisinopril. Had her CXR done today. [facility] 36on 04-07-2022 36 Placed call to patient. Was able to speak to patient. All concerns in message have been addressed. [facility] 36 I want to make sure that the chest x-ray order has been faxed to [place].If so let pr know that she can go there for the chest x-ray. Let patient know that I have orders for fasting blood work. She can come into the office for this. [facility] 36on 04-05-2022 36 Orders pended for doctor signature Xray faxed to [facility] 36 I would like this patient referred to Dr. Nimesh Garnett radio rigger in [facility] 36 I ordered a chest x-ray. I would like the order faxed to [facility]. [facility] Office Visiton 04-03-2022 Follow-up visit [id number] Fadia Dubon 1955 F Date Provider Department Center 04/03/2022 CHANDLER DICKERSON [facility] Family History Problem Relation Age of Onset COPD Mother Other Father Comments: lung disease Family Status - Relation Status Age at Mother Father 34 Level of Service:28486 [place] OFFICE/OUTPATIENT ESTABLISHED LOW MDM 20-29 MIN Reason for Visit and Comments: Follow-up [608582] - 4 month med check [facility] Progress Noteon 04-03-2022 Progress Note Subjective: Patient ID: Fadia Dubon is a 67 y.o. female. 67-year-old female with a history of diabetes presents to the office for checkup. Patient did bring in some blood sugar readings. She did have a low blood sugar this morning at 2 AM was 67. Fasting blood sugars not really that bad but around supper become elevated. Review of Systems Constitutional: Negative for activity change, appetite change, fatigue, fever and unexpected weight change. Eyes: Negative for visual disturbance. Up to date with eye check up. Denies blurred vision. Respiratory: Positive for cough (Has had a cough for about 4 months .nonproductive.). Negative for chest tightness and shortness of breath. Has been on lisinopril for about one year. Gastrointestinal: Negative for abdominal distention, abdominal pain and blood in stool. Endocrine: Negative for polydipsia and polyuria. Patient's largest meal is around 2 p.m. Patient had a blood sugar 63 around 2 a.m.recently Genitourinary: Negative for difficulty urinating. Musculoskeletal: Negative for arthralgias. Skin: Negative for rash. Neurological: Negative for weakness, light-headedness, numbness and headaches. No burning of the feet Hematological: Does not bruise/bleed easily. Objective: Physical Exam Constitutional: General: She is not in acute distress. HENT: Right Ear: Tympanic membrane normal. Left Ear: Tympanic membrane normal. Ears: Comments: Minimal cerumen ear canals Mouth/Throat: Comments: Mouth exam unremarkable Neck: Vascular: No carotid bruit. Cardiovascular: Rate and Rhythm: Normal rate. Heart sounds: No murmur heard. Pulmonary: Breath sounds: Normal breath sounds. No wheezing or rales. Abdominal: General: There is no distension. Palpations: There is no mass. Tenderness: There is no abdominal tenderness. Musculoskeletal: Right lower leg: No edema. Left lower leg: No edema. Comments: Pulses present both feet Lymphadenopathy: Cervical: No cervical adenopathy. Skin: Findings: No rash. Neurological: Mental Status: She is alert. Coordination: Coordination normal. Comments: Sensory intact BP 124/74 Pulse 67 Temp 36.3 ?C (97.3 ?F) (Temporal) Ht 5' 1 (1.549 m) Wt 152 lb (68.9 kg) SpO2 100% BMI 28.72 kg/m? No Known Allergies Current Outpatient Medications on File Prior to Visit Medication Sig Dispense Refill Aspirin 81 MG capsule Take 81 mg by mouth daily. cholecalciferol (Vitamin D-3) 25 MCG (1000 UT) capsule Take 1,000 Units by mouth daily. insulin aspart (NovoLOG FLEXPEN) 100 UNIT/ML pen 8 units with meals [DISCONTINUED] Drug [place] Unilucia Pentips 31G X 8 MM misc use WITH injection DAILY [DISCONTINUED] insulin degludec (Tresiba FlexTouch) 200 UNIT/ML injection 22 units daily [DISCONTINUED] lisinopril 2.5 MG tablet Take 2.5 mg by mouth every morning. [DISCONTINUED] raloxifene (Evista) 60 MG tablet Take 60 mg by mouth every morning. No current facility-administered medications on file prior to visit. Patient Active Problem List Diagnosis Type 1 diabetes mellitus with complication (CMS/[facility]) ([facility]) Type 2 diabetes mellitus without complication ([facility]) ([facility]) Menopause Adhesive capsulitis of right shoulder Social History Tobacco Use Smoking status: Never Smokeless tobacco: Never Substance Use Topics Alcohol use: Yes Alcohol/week: 0.0 standard drinks Past Surgical History: Procedure Laterality Date SECTION (HISTORICAL) COLONOSCOPY 04/16/2006 COLONOSCOPY 01/2021 Unremarkable DILATION AND CURETTAGE OF UTERUS Family History Problem Relation Name Age of Onset COPD Mother Other (50235) Father lung disease Assessment / Plan: Diagnosis Plan 1. Type 2 diabetes mellitus without complication, with long-term current use of insulin (CMS/[facility]) ([facility]) Basic metabolic panel Hemoglobin A1c Basic metabolic panel Hemoglobin A1c needs better control. Will have take novolog 10 units with breakfast. 10 units with her lunch and will decrease the evening to 6. 2. Cough, unspecified type XR chest 2 views Possibly secondary to OLMNA inhibitor.will have switched to lasartan. Chest x-ray 3. Lipid screening Lipid panel Lipid panel Will have patient see Dr. Garnett radio rigger.flaco rodriguez will come in for fasting blood work. [facility] Progress Note [facility] Pre-chart Open Care Gaps: Statin for Diabetes Clinical guidelines recommend that patients 40 to 75 years of age with diabetes are to be placed on statin therapy, regardless of cardiovascular risk. Patients with lower LDL levels should be evaluated on an individual basis. Please discuss with patient starting a statin medication. Nadia Rose, PharmD, BCACP Clinical Pharmacist Population Health [facility] [phone] [facility] OT Bone Density DEXA Axial S paco 12-01-2020 OT Bone Density DEXA Axial Skeleton Patient Name: FADIA DUBON Bone Density ACCESSION EXAM DATE/TIME PROCEDURE ORDERING PROVIDER [id number] 12/01/2020 08:27 EDT OT Bone Density DEXA DO SHANNON PAUL E. Axial Skeleton CPT code 18650 Reason For Exam (OT Bone Density DEXA Axial Skeleton) . Report DXA BONE DENSITOMETRY: CLINICAL INDICATION: Asymptomatic post-menopausal status. Screening for osteoporosis. COMPARISON: None TECHNIQUE: Quantitative bone mineral densitometry of the hip and lumbar spine was performed with a dual energy x-ray observed absorptiometry device - [employer] at some institutions, HOLOGIC at others. Regions of interest were obtained through the proximal femur and compared to the normal value of young adult women. Regions of interest were also obtained through the lumbar vertebrae with an average value determined and compared to the normal value of young adult women. The difference between your measured bone density and the bone density of a normal young woman is expressed in standard deviations as the T score. Similarly, your measured bone density is also compared to age and race matched values, and expressed in standard deviations as the Z score. According to World Health Organization criteria: T-score of -1.0 or higher is normal. T-score between -1.1 to < -2.5 is low bone density or osteopenia. T-score of -2.5 or lower is abnormally low, compatible with osteoporosis. T-score of -2.5 or less plus fragility fracture indicates severe osteoporosis. FINDINGS: Femoral neck LEFT Density: 0.663 g/cm2 T-score: -1.7 Z-score: -0.1 Total Hip LEFT Density: 0.806 g/cm2 T-score: -1.1 Z-score: 0.1 Spine: L1-L4 Density 0.861 g/cm2 T-score: -1.7 Z-score: 0.1 IMPRESSION: 1. Osteopenia. Bone Density Report FRACTURE RISK: The estimated 10 year risk for a hip fracture is 1.1% and for a major osteoporosis-related fracture is 9.4%. (FRAX web version 3.11). RECOMMENDATIONS: General recommendations for prevention of bone loss include: 9876-5409 mg calcium intake per day for adults >50yrs, and no history of renal calculi 800-1000 IU of vitamin D3 per day for adults >50yrs, and no history of renal calculi Weight bearing exercise Discontinue smoking Avoid excessive use of caffeine, soft drinks, and alcoholic beverages In addition, balance training and fall prevention programs can help reduce the risk of fractures Pharmacologic treatment recommendations: Initiate pharmacologic treatment in patients with hip or vertebral fracture. In those with T scores by DXA In postmenopausal women and men age 50 or older with low bone mass (T score between -1.0 and -2.5 [osteopenia]) at the femoral neck, total hip, or lumbar spine by DXA have a 10 year hip fracture probability >/= 3% or a 10 year major osteoporosis-related fracture probability >/= 20% based on the [place]-adapted WHO fracture risk model (FRAX). Current FDA-approved pharmacologic options for osteoporosis treatment include bisphosphonates (Fosamax), ibandronate (Boniva), risedronate (Actonel), zoledronic acid (Reclast), estrogens and other hormonal therapies (Evista), parathyroid hormone (Forteo), and denosumab (Prolia). Initiation of pharmacologic therapy should happen only after thorough medical evaluation, discussion of risks and benefits, and with regular monitoring of the therapeutic regimen. Follow-up recommendations: Patients with osteoporosis or or at high risk for fracture should have follow-up bone density tests. For Medicare patients, routine testing is allowed every 2 years. Patients who have low bone mass (T score -2.0 to -2.49), who are currently on treatment for low bone mass, or having risk factors for accelerated bone loss (glucocorticoids, aromatase inhibitors, etc.), consider repeat DXA in 1-2 years. Patients with osteopenia and no risk factors may consider follow-up every 3-5 years. References: National Osteoporosis Foundation. Clinician's Guide to Prevention and Treatment of Osteoporosis. Osteoporosis International. Gloria, 2014. DXA Scan Screening, Reporting (FRAX Score) and Follow-up. [place] of Knowledge Evidence - based Summaries. [facility] PitchZ[facility] Comprehensive Health CenterVirtual Paper for Education and Research 2017. Bone Density Report Report Dictated on Final Dictating Physician: MD MARIANO JEFFREY Signed Date and Time: 12/02/2020 4:49 am Signed by: MD MARIANO JEFFREY Transcribed Date and Time: 12/02/2020 4:50 Normal 140 Proof [facility] CR Shoulder 2+ Views Lefton 10-28-2020 CR Shoulder 2+ Views Left Patient Name: FADIA DUBON Diagnostic Radiology ACCESSION EXAM DATE/TIME PROCEDURE ORDERING PROVIDER [id number] 10/28/2020 10:03 EDT CR Shoulder 2+ Views DO SHANNON PAUL EJj Left CPT code 45014 Reason For Exam (CR Shoulder 2+ Views Left) . Report Indication: Pain. Three views of the left shoulder are compared to the study dated 05/16/2011. There is no evidence of an acute fracture or dislocation. There is no bone destruction, erosion or periosteal reaction. There is mild narrowing of the glenohumeral joint. There is an unchanged small incidental bone island within the glenoid. The left acromioclavicular joint is intact. There are no radiopaque foreign bodies. IMPRESSION: 1. No evidence of an acute bone process. 2. 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 Report Dictated on Final Dictating Physician: DO DALTON ANTHONY Signed Date and Time: 10/28/2020 10:25 am Signed by: DO DALTON ANTHONY Transcribed Date and Time: 10/28/2020 10:26 Normal [facility] XR Shoulder Left 2 VWOrdered By: Chandler Shannon on 10-28-2020 Patient Name: FADIA DUBON Diagnostic Radiology ACCESSION EXAM DATE/TIME PROCEDURE ORDERING PROVIDER [id number] 10/28/2020 10:03 EDT CR Shoulder 2+ Views DO SHANNON PAUL E. Left CPT code 32980 Reason For Exam (CR Shoulder 2+ Views Left) . Report Indication: Pain. Three views of the left shoulder are compared to the study dated 05/16/2011. There is no evidence of an acute fracture or dislocation. There is no bone destruction, erosion or periosteal reaction. There is mild narrowing of the glenohumeral joint. There is an unchanged small incidental bone island within the glenoid. The left acromioclavicular joint is intact. There are no radiopaque foreign bodies. IMPRESSION: 1. No evidence of an acute bone process. 2. 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 Report Dictated on --- Final --- Dictating Physician: DO DALTON ANTHONY Signed Date and Time: 10/28/2020 10:25 am Signed by: DO DALTON ANTHONY Transcribed Date and Time: 10/28/2020 10:26 [facility] Results From [facility] - 10/28/2020 10:26 AM EDT Patient Name: FADIA DUBON Diagnostic Radiology ACCESSION EXAM DATE/TIME PROCEDURE ORDERING PROVIDER [id number] 10/28/2020 10:03 EDT CR Shoulder 2+ Views DO SHANNON PAUL E. Left CPT code 69288 Reason For Exam (CR Shoulder 2+ Views Left) . Report Indication: Pain. Three views of the left shoulder are compared to the study dated 05/16/2011. There is no evidence of an acute fracture or dislocation. There is no bone destruction, erosion or periosteal reaction. There is mild narrowing of the glenohumeral joint. There is an unchanged small incidental bone island within the glenoid. The left acromioclavicular joint is intact. There are no radiopaque foreign bodies. IMPRESSION: 1. No evidence of an acute bone process. 2. 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 Report Dictated on --- Final --- Dictating Physician: DO DALTON ANTHONY Signed Date and Time: 10/28/2020 10:25 am Signed by: DO DALTON ANTHONY Transcribed Date and Time: 10/28/2020 10:26 [facility] Work Phone: [facility] Work Phone: ED NOTEon 06-19-2019 ED NOTE HNO ID: [id number] Author: Monse Rodriguez RN Service: Nursing Author Type: Registered Nurse Type: ED Notes Filed: 06/19/2019 10:46 AM Note Text: Discharge instructions reviewed with pt. All questions answered. Pt leaving ambulatory with crutches. Normal [facility] ED NOTE HNO ID: [id number] Author: Monse RodriguezRn) DANIEL Rodriguez Service: Nursing Author Type: Registered Nurse Type: ED Notes Filed: 06/19/2019 9:12 AM Note Text: Pt presents to ED with c/o L foot injury from work yesterday. States she got her foot stuck in between equipment. Didn't notice it much yesterday but today it's swollen and bruised [facility] ED PROV NOTEon 06-19-2019 ED PROV NOTE HNO ID: [id number] Author: Luciana Jones (Pa) Service: ? Author Type: Physician Plug Shaper Hand Type: ED Provider Notes Filed: 06/19/2019 10:19 AM Note Text: ED Provider Note Patient Name: Fadia Dubon SERVICE DATE: 06/19/19 History Patient presents with: Foot Trauma: Left 64-year-old female, with history of diabetes, presents to the ED with left foot trauma. Yesterday at work she was using some type of lift and the left reversed and it pinned her foot. It did not roll over her foot. Her toe was flexed backward. She was still able to work and didn't think anything of it until she noted swelling and bruising today. She has pain with ambulation but not much with palpation. She's been taking Advil. No numbness tingling or weakness. Previous Zamudio fracture to this foot. History provided by: Patient PAST MEDICAL HISTORY Diagnosis Date - Diabetes (HCC) type 1 History reviewed. No pertinent surgical history. Social History Tobacco Use - Smoking status: Never Smoker - Smokeless tobacco: Never Used Substance and Sexual Activity - Alcohol use: Not Currently Frequency: 2-4 times a month Drinks per session: 1 or 2 Binge frequency: Never - Drug use: Never - Sexual activity: Not on file ALLERGIES No Known Allergies Review of Systems Constitutional: Negative for chills and fever. HENT: Negative. Respiratory: Negative for cough and shortness of breath. Cardiovascular: Negative for chest pain. Gastrointestinal: Negative for nausea and vomiting. Musculoskeletal: Left foot injury Skin: Positive for color change. Neurological: Negative for weakness and numbness. Physical Exam BP 173/82 Pulse 96 Temp (Src) 98.5 (Oral) Resp 16 Wt 134 lb (60.8kg) SpO2 98% O2 Therapy: Room Air Physical Exam Vitals signs and nursing note reviewed. Constitutional: General: She is not in acute distress. Appearance: Normal appearance. She is not ill-appearing or toxic-appearing. HENT: Head: Normocephalic and atraumatic. Nose: Nose normal. Mouth/Throat: Mouth: Mucous membranes are moist. Cardiovascular: Rate and Rhythm: Normal rate and regular rhythm. Pulmonary: Effort: Pulmonary effort is normal. Breath sounds: Normal breath sounds. Musculoskeletal: Comments: Patient with bruising and swelling to the left foot mostly to the great toe, second, third and fourth toes. Extends into the midfoot. There is minimal pain on palpation of the midfoot. Pedal pulse 2+. No pain to the ankle or knee. Sensation intact. Cap refill less than 2 seconds Skin: Findings: Bruising (dorsum of left foot near 1-4th toes) present. Neurological: General: No focal deficit present. Mental Status: She is alert and oriented to person, place, and time. Psychiatric: Mood and Affect: Mood normal. Diagnostic Testing XR FOOT GENERAL 3V AP/LAT/OBL LT Final Result IMPRESSION: Small intra-articular nondisplaced fracture first toe proximal phalanx and probable small fracture first toe distal phalanx. Video Game Maker: CATHIE Transcribe Date/Time: Jun 19 2019 9:55A Dictated by : LEELA WHITE DO This examination was interpreted and the report reviewed and electronically signed by: LEELA WHITE DO on Jun 19 2019 10:03AM EST SPLINT APPLICATION Date/Time: 06/19/2019 10:18 AM Performed by: Luciana Jones (Pa) Authorized by: Luciana Jones (Pa) Consent: Consent obtained: Verbal Consent given by: Patient Risks discussed: Discoloration, numbness, swelling and pain Pre-procedure details: Sensation: Normal Procedure details: Laterality: Left Location: Foot Foot: L foot Splint type: Short leg Supplies: Ortho-Glass, elastic bandage and cotton padding Post-procedure details: Pain: Improved Sensation: Normal Patient tolerance of procedure: Tolerated well, no immediate complications ED Course / Clinical Impression Clinical Impressions as of Jun 18 1017 Closed nondisplaced fracture of phalanx of left great toe, unspecified phalanx, initial encounter MDM / Disposition / Plan Patient presented to the ED today with injury to her left foot yesterday while at work. On exam she has moderate swelling and bruising throughout the toes and midfoot. X-ray is showing an intra-articular nondisplaced fracture of the first toe proximal phalanx and also the distal phalanx. See procedure note for splint application. She has crutches at home. She is given verbal and written instructions on splint care. She is given follow-up with podiatry. Discharged home The patient was DISCHARGED: Counseled patient regarding radiology results AND suspected diagnosis AND need for follow-up. Discharged home with verbal and written instructions. They were instructed to return as needed for persistent or worsening symptoms or any new concerns. Condition at time of disposition: stable SIGNATURE: SRINATH Bonner (Pa) 06/19/19 1019 [facility] XR FOOT 3V AP/LAT/OBL LTon 0 06-19-2019 XR FOOT 3V AP/LAT/OBL LT * * *Final Report* * * DATE OF EXAM: Jun 19 2019 9:53AM MDX [id number] - XR FOOT 3V AP/LAT/OBL LT / PROCEDURE REASON: Bone pain, foot * * * * Physician Interpretation * * * * EXAMINATION: XR FOOT 3V AP/LAT/OBL LT PATIENT/TECHNOLOGIST PROVIDED HISTORY: LT FOOT TRAUMA, BRUISING and EDEMA AT LEFT GREAT TOE CLINICAL INFORMATION: 64 years old Female with Bone pain, foot TECHNIQUE: XR FOOT 3V AP/LAT/OBL LT Laterality: LEFT Number of different views (projections): 3 COMPARISON: Left foot radiographs 07/04/2013 RESULT: Acute nondisplaced intra-articular fracture at the medial aspect head of the first toe proximal phalanx and probable small fracture involving the medial base of the first toe distal phalanx. Small calcification adjacent to the medial base of the first toe proximal phalanx may be posttraumatic. Dorsal forefoot soft tissue swelling. No other fractures identified. Bony alignment and joint spaces are otherwise maintained. IMPRESSION: Small intra-articular nondisplaced fracture first toe proximal phalanx and probable small fracture first toe distal phalanx. Video Game Maker: PSCB Transcribe Date/Time: Jun 19 2019 9:55A Dictated by : LEELA WHITE DO This examination was interpreted and the report reviewed and electronically signed by: LEELA WHITE DO on Jun 19 2019 10:03AM EST [id number] N [facility] Vital Signs Date Time Vital Sign Value Performing Clinician Faci lity 07-03-2023 11:25-0400 Body mass index (BMI) [Ratio] 28.9 kg/m2 Dr. Lorna Bruce Work Phone: [facility] 07-03-2023 11:25-0400 Body temperature 98.2 [degF] Dr. Lorna Bruce Work Phone: [facility] 07-03-2023 11:25-0400 Body weight 71.[address] Lorna Bruce Work Phone: [facility] 07-03-2023 11:25-0400 Diastolic blood pressure 75 mm[Hg] Dr. Lorna Bruce Work Phone: [facility] 07-03-2023 11:25-0400 Heart rate 54 /min Dr. Lorna Bruce Work Phone: [facility] 07-03-2023 11:25-0400 SaO2% (BldA) [Mass fraction] 97 % Dr. Lorna Bruce Work Phone: [facility] 07-03-2023 11:25-0400 Systolic blood pressure 135 mm[Hg] Dr. Lorna Bruce Work Phone: [facility] 04-04-2023 15:33-0500 Body mass index (BMI) [Ratio] 29 kg/m2 Dr. Lorna Bruce Work Phone: [facility] 04-04-2023 15:33-0500 Body temperature 97.5 [degF] Dr. Lorna Bruce Work Phone: [facility] 04-04-2023 15:33-0500 Body weight 72.[address] Lorna Bruce Work Phone: [facility] 04-04-2023 15:33-0500 Diastolic blood pressure 84 mm[Hg] Dr. Lorna Bruce Work Phone: [facility] 04-04-2023 15:33-0500 Heart rate 69 /min Dr. Lorna Bruce Work Phone: [facility] 04-04-2023 15:33-0500 SaO2% (BldA) [Mass fraction] 96 % Dr. Lorna Bruce Work Phone: [facility] 04-04-2023 15:33-0500 Systolic blood pressure 145 mm[Hg] Dr. Lorna Bruce Work Phone: [facility] 01-09-2023 08:30-0400 Body temperature 97.8 [degF] Dr. Chandler Shannon Work Phone: [facility] 01-09-2023 08:30-0400 Diastolic blood pressure 67 mm[Hg] Dr. Chandler Shannon Work Phone: [facility] 01-09-2023 08:30-0400 Heart rate 68 /min Dr. Chandler Shannon Work Phone: [facility] 01-09-2023 08:30-0400 Respiratory rate 16 /min Dr. Chandler Shannon Work Phone: [facility] 01-09-2023 08:30-0400 SaO2% (BldA) [Mass fraction] 97 % Dr. Chandler Shannon Work Phone: [facility] 01-09-2023 08:30-0400 Systolic blood pressure 150 mm[Hg] Dr. Chandler Shannon Work Phone: [facility] 12-27-2022 09:27-0400 Body height 157.[address] Chandler Shannon Work Phone: [facility] 12-27-2022 09:27-0400 Body mass index (BMI) [Ratio] 29.2 kg/m2 Dr. Chandler Shannon Work Phone: [facility] 12-27-2022 09:27-0400 Body temperature 97.3 [degF] Dr. Chandler Shannon Work Phone: [facility] 12-27-2022 09:27-0400 Body weight 72.[address] Chandler Shannon Work Phone: [facility] 12-27-2022 09:27-0400 Diastolic blood pressure 66 mm[Hg] Dr. Chandler Shannon Work Phone: [facility] 12-27-2022 09:27-0400 Heart rate 76 /min Dr. Chandler Shannon Work Phone: [facility] 12-27-2022 09:27-0400 Respiratory rate 16 /min Dr. Chandler Shannon Work Phone: [facility] 12-27-2022 09:27-0400 SaO2% (BldA) [Mass fraction] 97 % Dr. Chandler Shannon Work Phone: [facility] 12-27-2022 09:27-0400 Systolic blood pressure 114 mm[Hg] Dr. Chandler Shannon Work Phone: [facility] 12-04-2022 14:36-0400 Body height 157.[address] Chandler Shannon Work Phone: [facility] 12-04-2022 14:36-0400 Body mass index (BMI) [Ratio] 29.3 kg/m2 Dr. Chandler Shannon Work Phone: [facility] 12-04-2022 14:36-0400 Body temperature 98.5 [degF] Dr. Chandler Shannon Work Phone: [facility] 12-04-2022 14:36-0400 Body weight 72.[address] Chandler Shannon Work Phone: [facility] 12-04-2022 14:36-0400 Diastolic blood pressure 76 mm[Hg] Dr. Chandler Shannon Work Phone: [facility] 12-04-2022 14:36-0400 Heart rate 78 /min Dr. Chandler Shannon Work Phone: [facility] 12-04-2022 14:36-0400 Respiratory rate 18 /min Dr. Chandler Shannon Work Phone: [facility] 12-04-2022 14:36-0400 SaO2% (BldA) [Mass fraction] 97 % Dr. Chandler Shannon Work Phone: [facility] 12-04-2022 14:36-0400 Systolic blood pressure 138 mm[Hg] Dr. Chandler Shannon Work Phone: [facility] 08-28-2022 08:11-0400 Body mass index (BMI) [Ratio] 28.9 kg/m2 Dr. Chandler Shannon Work Phone: [facility] 08-28-2022 08:11-0400 Body temperature 98 [degF] Dr. Chandler Shannon Work Phone: [facility] 08-28-2022 08:11-0400 Body weight 71.[address] Chandler Shannon Work Phone: [facility] 08-28-2022 08:11-0400 Diastolic blood pressure 75 mm[Hg] Dr. Chandler Shannon Work Phone: [facility] 08-28-2022 08:11-0400 Heart rate 60 /min Dr. Chandler Shannon Work Phone: [facility] 08-28-2022 08:11-0400 Respiratory rate 18 /min Dr. Chandler Shannon Work Phone: [facility] 08-28-2022 08:11-0400 SaO2% (BldA) [Mass fraction] 97 % Dr. Chandler Shannon Work Phone: [facility] 08-28-2022 08:11-0400 Systolic blood pressure 134 mm[Hg] Dr. Chandler Shannon Work Phone: [facility] 08-24-2022 10:13-0400 Diastolic blood pressure 76 mm[Hg] Dr. Chandler Shannon Work Phone: [facility] 08-24-2022 10:13-0400 Systolic blood pressure 126 mm[Hg] Dr. Chandler Shannon Work Phone: [facility] 08-24-2022 08:41-0400 Body mass index (BMI) [Ratio] 28.7 kg/m2 Dr. Chandler Shannon Work Phone: [facility] 08-24-2022 08:41-0400 Body temperature 98.5 [degF] Dr. Chandler Shannon Work Phone: [facility] 08-24-2022 08:41-0400 Body weight 71.[address] Chandler Shannon Work Phone: [facility] 08-24-2022 08:41-0400 Heart rate 63 /min Dr. Chandler Shannon Work Phone: [facility] 08-24-2022 08:41-0400 Respiratory rate 14 /min Dr. Chandler Shannon Work Phone: [facility] 08-24-2022 08:41-0400 SaO2% (BldA) [Mass fraction] 99 % Dr. Chandler Shannon Work Phone: [facility] 05-25-2022 08:16-0500 Body height 157.[address] Chandler Shannon Work Phone: [facility] 05-25-2022 08:16-0500 Body mass index (BMI) [Ratio] 28.4 kg/m2 Dr. Chandler Shannon Work Phone: [facility] 05-25-2022 08:16-0500 Body temperature 97.1 [degF] Dr. Chadnler Shannon Work Phone: [facility] 05-25-2022 08:16-0500 Body weight 70.[address] Chandler Shannon Work Phone: [facility] 05-25-2022 08:16-0500 Diastolic blood pressure 81 mm[Hg] Dr. Chandler Shannon Work Phone: [facility] 05-25-2022 08:16-0500 Heart rate 59 /min Dr. Chandler Shannon Work Phone: [facility] 05-25-2022 08:16-0500 Respiratory rate 18 /min Dr. Chandler Shannon Work Phone: [facility] 05-25-2022 08:16-0500 SaO2% (BldA) [Mass fraction] 94 % Dr. Chandler Shannon Work Phone: [facility] 05-25-2022 08:16-0500 Systolic blood pressure 145 mm[Hg] Dr. Chandler Shannon Work Phone: [facility] Encounters Encounter Date Encounter Type Care Provider Facility Start: 08-13-2024 End: 08-13-2024 amb[place] Bruce [place] [place]: 05-15-2024 End: 05-15-2024 ambulatory Lorna Bruce [place] [place] Start: 03-10-2024 End: 03-10-2024 ambulatory Lorna Bruce Facility:[facility] Start: 02-14-2024 End: 02-15-2024 ambulatory Ana Love Facility:[facility] Start: 11-07-2023 End: 11-07-2023 ambulatory Lorna Bruce Facility:[facility] Start: 07-12-2023 End: 07-12-[address] Lorna Bruce Work Phone: [facility] Work Phone: Start: 07-12-2023 End: 07-12-[address] Lorna Bruce Work Phone: [facility]-Laboratory Work Phone: Start: 07-09-2023 End: 07-09-[address] Lorna Bruce Work Phone: [facility] Work Phone: Start: 07-09-2023 End: 07-09-[address] Lorna Bruce Work Phone: [facility]-Outpatient Breast Imaging Work Phone: Start: 04-04-2023 End: 04-04-[address] Lorna Bruce Work Phone: [facility] Endocrinology Work Phone: Start: 01-09-2023 End: 01-09-[address] Chandler Shannon Work Phone: [facility] Work Phone: Start: 01-09-2023 End: 01-09-[address] Chandler Shannon Work Phone: [facility]-Medical Out Work Phone: Start: 12-27-2022 End: 12-27-[address] Chandler Shannon Work Phone: [facility] Internal Medicine Work Phone: Start: 12-08-2022 End: 12-08-[address] Chandler Shannon Work Phone: [facility] Work Phone: Start: 12-08-2022 End: 12-08-[address] Chandler Shannon Work Phone: [facility]-Laboratory Work Phone: Start: 12-04-2022 End: 12-04-[address] Chandler Shannon Work Phone: [facility] Endocrinology Work Phone: Start: 08-28-2022 End: 08-28-[address] Chandler Shannon Work Phone: [facility] Endocrinology Work Phone: Start: 08-24-2022 End: 08-24-[address] Chandler Shannon Work Phone: [facility] Internal Medicine Work Phone: Start: 07-06-2022 End: 07-06-[address] Chandler Shannon Work Phone: [facility] Work Phone: Start: 07-06-2022 End: 07-06-[address] Chandler Shannon Work Phone: [facility]-Outpatient Bone Densitometry Start: 05-25-2022 End: 05-25-[address] Chandler Shannon Work Phone: [facility] Endocrinology Start: 05-02-2022 Non-patient / Non-visit Dr. Chandler Shannon Work Phone: [facility] Internal Medicine Start: 04-23-2022 Telephone encounter Chandler rebollar DO Work Phone: [facility] Comment on above: Diabetes (Blood suga r readings) Start: 04-12-2022 Telephone encounter Chandler rebollar DO Work Phone: [facility] Comment on above: Results (Xray); Diab etes (Blood sugar readings) Start: 04-12-2022 End: [facility]-12[facility]20[facility] Start: 04-11-2022 End: 04-11-2022 ambulatory [facility] Work Phone: Start: 04-11-2022 End: 04-11-2022 Patient encounter procedure [facility]-Radiology, [facility] Start: 04-03-2022 End: 04-03-2022 [facility] Start: 12-01-2020 End: 12-01-2020 Subsequent hospital visit by physician Chandler Shannon DO Work Phone: [facility] Comment on above: Menopause Start: 10-28-2020 End: 10-28-2020 Subsequent hospital visit by physician Chandler Shannon DO Work Phone: [facility] Comment on above: Chronic left shoulde r pain Procedures Date Procedure Procedure Detail Performing Clinician Start: 07-09-2023 Screening mammography Neno Bruce Work Phone: Start: 07-06-2022 Dual energy X-ray absorptiometry Dr. Chandler Shannon Work Phone: Start: 07-06-2022 Screening mammography Neno Shannon Work Phone: Start: 04-12-2022 Lipid 1996 panel - S anne or Plasma Chandler Shannon DO Work Phone: Start: 04-11-2022 Plain chest X-ray Start: 04-03-2022 Follow-up visit Follow-up CHANDLER MIXON Start: 10-28-2020 Radex shoulder compl ete minimum 2 views Chandler Shannon DO Work Phone: Start: 02-20-2020 Mammography Chandler clarke DO Work Phone: Plan of Treatment Date Care Activity Detail Author Start: 03-27-2024 Glaucoma screening Diabetes: Retinopathy Screening [facility] [employer] Start: 10-29-2023 Screening for malignant neoplasm of cervix Cervical cancer screen [facility] Work Phone: Start: 04-12-2023 Lipid panel Lipid Panel [facility] [employer] Start: 11-29-2022 Urine screening for protein Diabetes: Urine Protein Screening [facility] [employer] Start: 07-11-2022 Hemoglobin A1c measurement Diabetes: Hemoglobin A1C [facility] [employer] Start: 04-19-2022 End: 04-19-2023 Thyrotropin [Units/volume] in Serum or Plasma [facility] [employer] Comment on above: Expected: 04/19/2022 (Approximate), Expi res: 04/19/2023 Start: 04-19-2022 End: 04-19-2023 Triiodothyronine (T3) [Mass/volume] in Serum or Plasma T3 Lab Routine Weight gain Expected: 04/19/2022 (Approximate), Expires: 04/19/2023 [employer] Work Phone: Comment on above: Expected: 04/19/2022 (Approximate), Expi res: 04/19/2023 Start: 02-11-2022 Screening for malignant neoplasm of breast Breast cancer screen [employer] Work Phone: Start: 10-28-2021 Creatinine measurement Creatinine monitoring [employer] Work Phone: Start: 10-28-2021 Diabetic foot examination Diabetic foot exam [email or web address] Work Phone: Start: 10-28-2021 Diabetic microalbuminuria test Diabetic microalbuminuria test [email or web address] Work Phone: Start: 10-28-2021 Hemoglobin A1c measurement A1C test (Diabetic or Prediabetic) [employer] Work Phone: Start: 10-28-2021 Pneumococcal Vaccine: 65+ Years (2 - PCV) Pneumococcal Vaccine: 65+ Years (2 - PCV) [facility] [employer] Start: 10-28-2021 Potassium monitoring Potassium monitoring [employer] Work Phone: Start: 05-04-2021 Diabetic retinal exam Diabetic retinal exam [employer] Work Phone: Start: 03-01-2021 Lipid panel Lipid screen [employer] Work Phone: Start: 03-01-2021 End: 03-01-2021 Patient encounter procedure 03/01/2021 Office Visit Family Medicine Chandler Shannon, DO [address] [place] [id number] [phone] [facility] Start: 02-19-2021 Screening for malignant neoplasm of breast Mammogram [facility] Start: 01-28-2021 Hemoglobin A1c measurement A1C test (Diabetic or Prediabetic) [facility] Work Phone: Start: 12-15-2020 Influenza vaccination Flu vaccine (#1) [facility] Work Phone: Start: 12-07-2020 End: 12-07-2020 Patient encounter procedure 12/07/2020 Office Visit Sports Medicine [facility] [place] Start: 09-23-2020 COVID-19 Vaccine (3 - Booster for Pfizer series) COVID-19 Vaccine (3 - Booster for Pfizer series) [facility] Start: 06-29-2020 Annual Wellness Visit (AWV) Annual Wellness Visit (AWV) [facility] Work Phone: Start: 11-22-2019 Screening for malignant neoplasm of cervix Cervical cancer screen [facility] Work Phone: Start: 03-27-2019 Screening for malignant neoplasm of colon Colon Cancer Screen FIT/FOBT [facility] Work Phone: Start: 2010 Screening for osteoporosis DEXA (modify frequency per FRAX score) [facility] Work Phone: Start: 2005 Shingles Vaccine (1 of 2) Shingles Vaccine (1 of 2) [facility] Work Phone: Start: 2005 Zoster Vaccines (1 of 2) Zoster Vaccines (1 of 2) [facility] Start: 1974 DTaP/Tdap/Td vaccine (1 - Tdap) DTaP/Tdap/Td vaccine (1 - Tdap) [facility] Work Phone: Start: 1974 DTaP/Tdap/Td Vaccines (1 - Tdap) DTaP/Tdap/Td Vaccines (1 - Tdap) [facility] Start: 1973 Hepatitis C screening Hepatitis C Screening [facility] Start: 1970 HIV screening HIV screen [facility] Work Phone: Start: 1965 Diabetic foot examination Diabetes: Foot Exam [facility] Start: 1965 Preventive dental service Diabetes: Dental Exam [facility] Start: 1955 Cyanocobalamin vitamin b-12 Vitamin B-12 [facility] Start: 1955 Diabetes: Celiac Disease Screening Diabetes: Celiac Disease Screening [facility] Start: 1955 Hepatitis B Vaccines (1 of 3 - 3-dose series) Hepatitis B Vaccines (1 of 3 - 3-dose series) [facility] Start: 1955 Hepatitis C screening Hepatitis C screen [facility] Work Phone: Start: 1955 Screening for malignant neoplasm of colon [facility] Start: 1955 Thyroid stimulating hormone measurement TSH Level [facility] CBC W Auto Different ial panel - Blood [facility] End: 12-01-2020 DEXA Bone Density Axial Skeleton DEXA Bone Density Axial Skeleton Imaging Routine Menopause 1 Occurrences starting 12/01/2020 until 12/01/2020 [employer] Work Phone: Comment on above: 1 Occurrences starting 12/01/2020 until 12/01/2020 DEXA Bone Density Ax ial Skeleton DEXA Bone Density Axial Skeleton Imaging Routine Menopause 12/01/2020 8:07 AM EDT [facility] Work Phone: Immunizations Immunization Date Immunization Notes Care Provider [facility] 08-24-2022 tetanus toxoid, redu francine diphtheria toxoid, and acellular pertussis vaccine, adsorbed Dr. Chandler Shannon Work Phone: [facility] 02-02-2022 Influenza High-Dose Quadrivalent Dr. Chandler Shannon Work Phone: [facility] 02-02-2022 influenza, high dose seasonal, preservative-free Dr. Chandler Shannon Work Phone: [facility] 03-01-2021 influenza, high dose seasonal, preservative-free Dr. Chandler Shannon Work Phone: [facility] 03-01-2021 Influenza, High-dose Seasonal, Quadrivalent, Preservative Free Chandler Shannon DO Work Phone: [facility] 10-28-2020 pneumococcal polysaccharide vaccine, 23 valent Chandler Shannon DO Work Phone: [facility] 07-29-2020 Pfizer SARS-CoV-2 Vaccination Chandler Shannon DO Work Phone: [facility] 07-04-2020 Pfizer SARS-CoV-2 Vaccination Chandler Shannon DO Work Phone: [facility] 01-05-2020 influenza, injectabl e, quadrivalent, preservative free Dr. Chandler Shannon Work Phone: [facility] 01-05-2020 influenza, seasonal, injectable Dr. Chandler Shannon Work Phone: [facility] 02-07-2019 influenza, injectabl e, quadrivalent, preservative free Chandler Shannon DO Work Phone: [facility] 02-07-2019 influenza, seasonal, injectable Dr. Chandler Shannon Work Phone: [facility] 01-05-2018 influenza, injectabl e, quadrivalent, preservative free Chandler Shannon DO Work Phone: [facility] 01-05-2018 influenza, seasonal, injectable Dr. Chandler Shannon Work Phone: [facility] 01-03-2017 influenza, injectabl e, quadrivalent, preservative free Dr. Chandler Shannon Work Phone: [facility] 01-03-2017 influenza, seasonal, injectable Dr. Chandler Shannon Work Phone: [facility] 01-03-2017 Seasonal, quadrivale nt, recombinant, injectable influenza vaccine, preservative free Dr. Chandler Shannon Work Phone: [facility] 01-28-2016 influenza, injectabl e, quadrivalent, contains preservative Chandler Shannon DO Work Phone: [facility] 01-28-2016 influenza, injectabl e, quadrivalent, preservative free Dr. Chandler Shannon Work Phone: [facility] 01-28-2016 influenza, seasonal, injectable Dr. Chandler Shannon Work Phone: [facility] 01-28-2016 Seasonal, quadrivale nt, recombinant, injectable influenza vaccine, preservative free Dr. Chandler Shannon Work Phone: [facility] 12-30-2014 influenza, injectabl e, quadrivalent, preservative free Dr. Chandler Shannon Work Phone: [facility] 12-30-2014 influenza, seasonal, injectable Dr. Chandler Shannon Work Phone: [facility] 12-30-2014 Seasonal, quadrivale nt, recombinant, injectable influenza vaccine, preservative free Dr. Chandler Shannon Work Phone: [facility] 02-29-2012 pneumococcal polysaccharide vaccine, 23 valent Chandler Shannon DO Work Phone: [facility] Work Phone: 02-29-2012 pneumococcal vaccine , unspecified formulation Dr. Chandler Shannon Work Phone: [facility] Payers Date Payer Category Payer Self-pay [id number] 2020 Medicare [id number] 2020 Medicare [employer] MEDICARE ADVANTAGE [employer] MEDICARE [id number] 2020-Present [address] [address] [place] [address] Medicare HMO [id number] Private Health Insurance AET [id number] Unknown [id number] Unknown [id number] Unknown [id number] Unknown [id number] Unknown [id number] Unknown [id number] Social History Date Type Detail Facility Start: 06-29-2020 Tobacco smoking stat [facility] Never smoker 140 Proof Start: 06-29-2020 Tobacco use and exposure Never used [employer] Work Phone: Start: 06-29-2020 End: 04-19-2022 Alcohol intake Current drinker of alcohol (finding) [employer] Work Phone: Start: 06-29-2020 End: 04-19-2022 Alcohol intake [facility] Work Phone: Start: 07-22-2018 History SDOH Alcohol Frequency 2 [facility] Work Phone: Start: 07-22-2018 History SDOH Alcohol Std Drinks 1 [facility] Work Phone: Start: 07-22-2018 History SDOH Social Connections Phone 5 [employer] Work Phone: Start: 10-28-2018 History SDOH Social Connections Sabianism 98 [employer] Work Phone: Start: 07-22-2018 History SDOH Physica l Activity MPS 3 [employer] Work Phone: Start: 1955 Sex Assigned At Not on file [facility] Work Phone: Start: 04-02-2022 End: 04-12-2022 Exposure to SARS-CoV-2 (event) Not sure [employer] Start: 09-24-2018 End: 07-12-2023 Tobacco smoking status NHIS Unknown if ever smoked [facility] Start: 09-16-2018 None [facility] Start: 09-16-2018 Spouse/ Signif icant Other [facility] Start: 09-24-2018 Non-smoker [facility] Start: 1955 Sex Assigned At Female W [facility] Medical Equipment Procedure Code Equipment Code Equipment Origin al Text Equipment Identifier Dates 1 each by In Vit ro route 2 times daily As needed. [id number] Start: 02-13-2019 1 each by Does n ot apply route daily [id number] Start: 10-28-2020 End: 11-27-2020 Pen Needle, Diab etic (Bd Ultra-Fine Diana Pen Needle) 32 gauge x 5/32 needle Start: 08-28-2022 Pen Needle, Diab etic (Bd Ultra-Fine Diana Pen Needle) 32 gauge x 5/32 needle Start: 08-28-2022 Pen Needle, Diab etic (Bd Ultra-Fine Diana Pen Needle) 32 gauge x 5/32 needle Start: 07-12-2023 Pen Needle, Diab etic (Bd Ultra-Fine Diana Pen Needle) 32 gauge x 5/32 needle Start: 08-28-2022 End: 04-26-2023 Pen Needle, Diab etic (Bd Ultra-Fine Diana Pen Needle) 32 gauge x 5/32 needle Start: 04-26-2023 End: 07-12-2023 Pen Needle, Diab etic (Bd Ultra-Fine Diana Pen Needle) 32 gauge x 5/32 needle Start: 07-12-2023 Pen Needle, Diab etic (Bd Ultra-Fine Diana Pen Needle) 32 gauge x 5/32 needle Start: 08-28-2022 End: 04-26-2023 Pen Needle, Diab etic (Bd Ultra-Fine Diana Pen Needle) 32 gauge x 5/32 needle Start: 04-26-2023 End: 07-12-2023 use WITH injecti on DAILY [id number] Start: 04-03-2022 Goals Date Patient Goal Desired Activity /State Comment on above: Formatting of this n ote might be different from the original. Patient stated she would like to have more consistent blood sugar readings Patient stated she would like to start exercising for diabetes and weight management Barriers: lack of motivation Plan for overcoming my barriers: Work with Care team, start using her treadmill that she has in her home, will start eating bedtime snack to help with low BS in AM Confidence: 09/23 Anticipated Goal Completion Date: 03/23/19 Patient given copy of goals Comment on above: Formatting of this n ote might be different from the original. Patient stated she would like her blood sugar readings to be more consistent Barriers: lack of motivation Plan for overcoming my barriers: Working with health care team for diabetes management Confidence: 10/23 Anticipated Goal Completion Date: 10/21/18 Comment on above: Formatting of this n ote might be different from the original. Patient stated Goal: I will bring my medication bag with all of my medications in it to my next office visit, to make sure that I am taking the correct medications, at the right time and the correct dose Barrier: Forget Plan for overcoming my barriers: Leave medication bag in sight, put note on calendar, set an alarm on phone with date and why Confidence: Anticipated goal date: Bring medication bag to your office visits Mental Status Date Assessment Result Facility 01-09-2023 Cognitive function Awake;Alert;A ppropriate;Fol lows Commands [facility] Work Phone: Clinical Notes 04-12-2022 to 04-23-2022 Telephone Encounter - Chandler Shannon DO - 04/23/2022 7:53 PM ESTTelephone Encounter - Chandler Shannon DO - 04/23/2022 7:53 PM ESTTelephone Encounter - Chandler Shannon DO - 04/23/2022 7:49 PM EST Note Date & Type Note Facility 04-23-2022 Telephone encounter Note Form atting of this note might be different from the original. In addition to most previous note blood sugars before her lunch she feels range between 112-144 [facility] 04-23-2022 Miscellaneous Notes Formattin g of this note might be different from the original. In addition to most previous note blood sugars before her lunch she feels range between 112-144 documented in this encounter [facility] 04-23-2022 Telephone encounter Note Form atting of this note might be different from the original. I called this patient earlier today regarding her blood sugar readings since starting the new mealtime insulin regimen. Fasting blood sugar this morning was 126. Yesterday 96. On occasion patient may get a low reading after breakfast. The blood sugars that were elevated before her evening snack have come down. Patient is happy with her blood sugar readings. Continues with 6 units for breakfast, 8 units around her lunchtime, and 4 units her somewhat dinner [facility] 04-23-2022 Miscellaneous Notes Formattin g of this note might be different from the original. I called this patient earlier today regarding her blood sugar readings since starting the new mealtime insulin regimen. Fasting blood sugar this morning was 126. Yesterday 96. On occasion patient may get a low reading after breakfast. The blood sugars that were elevated before her evening snack have come down. Patient is happy with her blood sugar readings. Continues with 6 units for breakfast, 8 units around her lunchtime, and 4 units her somewhat dinner Patients chest xray results are scanned into her chart for you to review documented in this encounter [facility] 04-12-2022 Telephone encounter Note Form atting of this note might be different from the original. Patients chest xray results are scanned into her chart for you to review [facility] Evaluation note Diagnosis Chronic left shoulder pain Pain in joint, shoulder region documented in this encounter [facility] Work Phone: Evaluation note* Diagnosis Menopause Symptomatic menopausal or female climacteric states documented in this encounter [facility] Work Phone: Evaluation noteNo assessment information available [facility] Work Phone: Evaluation note* Diagnosis Onset Date Resolution Status Diabetes mellitus type 1 chr onic Osteoporosis chronic Overweight chronic [facility] Work Phone: Evaluation note* Diagnosis Onset Date Resolution Status Diabetes mellitus type 1 chr onic Osteopenia chronic Immunization due noneactive Overweight (BMI 25.0-29.9) n oneactive Establishing care with new doctor, encounter for noneactive Essential hypertension nonea ctive Diabetes mellitus type 1 chr onic Hypertension chronic Microalbuminuria due to type 1 diabetes mellitus chronic Osteopenia chronic Overweight chronic Diabetes mellitus type 1 chr onic Hypertension chronic Osteopenia chronic [facility] Work Phone: Evaluation note* Diagnosis Onset Date Resolution Status Diabetes mellitus type 1 chr onic Hypertension chronic Osteopenia chronic Diabetes mellitus type 1 chr onic Osteopenia chronic Immunization due noneactive Overweight (BMI 25.0-29.9) n oneactive Essential hypertension nonea [facility] Work Phone: evaluation note* Diagnosis Onset Date Resolution Status Diabetes mellitus type 1 chr onic Elevated TSH chronic Hypertension chronic Osteopenia chronic Overweight chronic Diabetes mellitus type 1 chr onic Elevated TSH chronic Hypertension chronic Microalbuminuria due to type 1 diabetes mellitus chronic Osteopenia chronic Overweight [facility] Work Phone: Evaluation note* Diagnosis Weight gain- Primary Other symptoms concerning nutrition, metabolism, and development documented in this encounter [facility] Health Summary Purpose Family History No Family History Records Found Relationship Condition Age at Onset Recorded Date/T gene Unknown Family History?Dementia Unknown September 16, 2018 4:45pm Family History?No pertinent history Unkno wn September 16, 2018 4:45pm Relationship Condition Age at Onset Recorded Date/T gene Not Specified Malignant neoplasm of skin Unknown Diabetes mellitus Unknown Relationship Condition Age at Onset Recorded Date/T gene Not Specified High blood cholesterol Unknown mother Malignant neoplasm of skin Unknown aunt Diabetes mellitus Unknown Advance Directives No Advanced Directives Records FoundDocuments on File Type Date Recorded Patient Model Technician Expl anation ACP-Advance Directive ACP-Power of Non Licensed Operator Documents on File Type Date Recorded Patient Model Technician Expl anation ACP-Advance Directive ACP-Power of Non Licensed Operator Advance Directive Response Recorded Date/ Time Living Will No September 16, 2018 4 :30pm Power of Non Licensed Operator No September 16, 2018 4:30pm Advance Directive Response Recorded Date/ Time Living Will No September 16, 2018 5 :30pm Power of Non Licensed Operator No September 16, 2018 5:30pm Advance Directive Response Recorded Date/ Time Living Will No July 03, 2023 11:25am Power of Non Licensed Operator No July 02 11:25am Reason for Referral Status Reason Specialty Diagnoses / Procedures Referre d By Contact Referred To Contact Open Radiology Diagnoses Menopause Procedures DEXA Bone Density Axial Skeleton Chandler Shannon DO [address] [place] [address] Chief Complaint and Reason for Visit Chief Complaint Cough, unspecified Chief Complaint Cough, unspecified Amb Documentation Diabetes SCREENING/OSTEO Reason for Visit Diabetes mellitus ty pe 1 Osteoporosis Overweight 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 ENT 3 M FU 3 M FU E ORDERS Reason for Visit Diabetes mellitus ty pe 1 Osteopenia Immunization due Overweight (BMI 25.0-29.9) Establishing care with new doctor, encounter for Essential hypertension Diabetes mellitus type 1 Hypertension Microalbuminuria due to type 1 diabetes mellitus Osteopenia Overweight Diabetes mellitus type 1 Hypertension Osteopenia Chief Complaint 3 M FU E ORDERS fu/2nd shingles shot PROLIA Reason for Visit Diabetes mellitus ty pe 1 Hypertension Osteopenia Diabetes mellitus type 1 Osteopenia Immunization due Overweight (BMI 25.0-29.9) Essential hypertension Chief Complaint 4 M FU SCREENING 3 M FU INT LABS Reason for Visit Diabetes mellitus ty pe 1 Elevated TSH Hypertension Osteopenia Overweight Diabetes mellitus type 1 Elevated TSH Hypertension Microalbuminuria due to type 1 diabetes mellitus Osteopenia Overweight Additional Source Comments INFORMATION SOURCE (unrecogn ized section and content) DATE CREATED AUTHOR 06/19/2019 [facility] DATE CREATED AUTHOR AUTHOR'S ORGANIZ ATION 12/02/2020 [facility] DATE CREATED AUTHOR AUTHOR'S ORGANIZ ATION 07/28/2022 [facility] DATE CREATED AUTHOR AUTHOR'S ORGANIZ ATION 08/13/2024 [facility] Goals (unrecognized section and content) Goals may be documented in a n alternate sectionGoals may be documented in an alternate sectionGoals may be documented in an alternate sectionGoals may be documented in an alternate sectionGoals may be documented in an alternate sectionGoals may be documented in an alternate section Care Teams (unrecognized sec tion and content) Team Status: Active Member Role Status Dates Dr. Chandler Shannon DO Family Provider Active Dr. Chandler Shannon DO Primary Care Provider Active Team Status: Inactive Member Role Status Dates Dr. Chandler Shannon DO Primary Care Provider, Referrin g Provider Active Ana Love , MULTIGRAPH OPERATOR-C Attending Provider Active Team Status: Active Member Role Status Dates Dr. Chandler Shannon DO Primary Care Provider Active Zachary Guillen Attending Provider Active Team Status: Inactive Member Role Status Dates Dr. Chandler Shannon DO Primary Care Prov ider, Attending Provider, Referring Provider Active Team Status: Inactive Member Role Status Dates Dr. Chandler Shannon DO Primary Care Provider Active Ana Love , MULTIGRAPH OPERATOR-C Attending Provider, Referring Pr ovider Active Team Status: Active Member Role Status Dates Dr. Chandler Shannon DO Family Provider Active Dr. Lorna Bruce MD Primary Care Provider Active Team Status: Inactive Member Role Status Dates Dr. Chandler Shannon DO Primary Care Provider, Referrin g Provider Active Dr. Lorna Bruce MD Attending Provider Active Team Status: Inactive Member Role Status Dates Dr. Chandler Shannon DO Referring Provider Active Ana Love MULTIGRAPH OPERATOR-C Attending Provider Active Dr. Lorna Bruce MD Primary Care Provider Active Team Status: Inactive Member Role Status Dates Dr. Lorna Bruce MD Primary Care Provider Active Aan Love , MULTIGRAPH OPERATOR-C Attending Provider, Referring Pr ovider Active Team Status: Inactive Member Role Status Dates Dr. Lorna Bruce MD Primary Care Pro vider, Attending Provider, Referring Provider Active Team Status: Inactive Member Role Status Dates Dr. Lorna Bruce MD Primary Care Provider, Referri ng Provider Active Ana Love , MULTIGRAPH OPERATOR-C Attending Provider Active Team Status: Active Member Role Status Dates Dr. Lorna Bruce MD Primary Care Pro vider, Attending Provider, Referring Provider Active Ana Love , MULTIGRAPH OPERATOR-C Other Provider Active Team Status: Inactive Member Role Status Dates Dr. Lorna Bruec MD Primary Care Pro vider, Attending Provider, Referring Provider Active Ana Love , MULTIGRAPH OPERATOR-C Other Provider Active [place] Relationship Specialty Start Date End Date Chandler Shannon DO [address] [place] [address] PCP - General 11/21/16 [place] Relationship Specialty Start Date End Date Chandler Shannon DO [address] [place] [id number] PCP - General 11/21/16 Reason for Visit (unrecogniz ed section and content) Reason Onset Date Comments Results 04/12/2022 Xray Diabetes 04/12/2022 Blood sugar read ings Reason Onset Date Comments Diabetes 04/23/2022 Blood sugar read ings FOR RECORDS PERTAINING TO PATIENTS WHO ARE OR HAVE BEEN ENROLLED IN A CHEMICAL DEPENDENCY/SUBSTANCEABUSE PROGRAM, SOME INFORMATION MAY BE OMITTED. This clinical summary was aggregated from multiple sources. Caution should be exercised in using it in the provision of clinical care. This summary normalizes information from multiple sources, and as a consequence, information in this document may materially change the coding, format and clinical context of patient data. In addition, data may be omitted in some cases. CLINICAL DECISIONS SHOULD BE BASED ON THE PRIMARY CLINICAL RECORDS. [facility]. provides no warranty or guarantee of the accuracy or completeness of information in this document.
--- OUTSIDE RECORDS SUMMARY | 2025-02-03 08:38 | XMS RPT_ITS | CCD ---
Author Organization [facility] CliniSys[facility] Care Team Providers Care Supervisor Microwave Name Role Phone Chandler Shannon DO Primary Care Provider Dr. Chandler Shannon Primary Care Provider Zachary Guillen Attending Provider Unavailable Dr. Chandler Shannon Referring Provider CATRINA Love Attending Provider CHANDLER SHANNON Attending Unavailable Dr. Chandler Shannon Primary Care Provider Dr. Chandler Shannon Referring Provider [phone] Dr. Lorna Bruce Attending Provider CATRINA Love Attending Provider Dr. Lorna Bruce Primary Care Provider Dr. Chandler Shannon Referring Provider CATRINA Love Attending Provider Dr. Lorna Bruce Attending Provider [phone] Dr. Lorna Bruce Referring Provider [phone] Lorna Bruce Primary Care Provider Dr. Lorna Bruce Referring Provider [phone] CATRINA Love Attending Provider Chandler Shannon DO Primary Care Provider Lorna Bruce Primary Care Unavailable Ana Love Attending Unavailable Lorna Bruce Referring Unavailable Ana Love Attending Unavailable Ana Love Referring Unavailable [place], Lorna Primary Care Unavailable Janis, Lorna Primary Care Unavailable Nimesh Garnett Attending Unavailable Nimesh Garnett Referring Unavailable Janis, Lorna Referring Unavailable Ana Love Attending Unavailable [place], Lorna Primary Care Unavailable Janis, Lorna Referring Unavailable Ana Love Attending Unavailable [place], Lorna Primary Care Unavailable Janis, Lorna Referring [...] mouth daily. 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 [place] [address] OFFICE VISIT Date of Service: 08/13/24 MR#: [id number] Acct: [id number] Name: FADIA DUBON Rep #: [id number] : 1955 Provider: CATRINA mcneill Age/Sex: 69/F Location: [facility] [place] Status: Signed Intake Vital Signs 05/15/24 [...] - B B Chief Complaint: f/u diabetes Licensed Nursing Assistant Required: No Accompanied by: Self Is patient in pain?: No Allergies No Known Allergies Allergy (Verified 08/13/24 08:52) Medications ???Medication ???Instructions ???Recorded ???Confirmed ???Type aspirin 81 mg chewable tablet 81 mg PO DAILY 09/16/18 08/13/24 H istory cholecalciferol (vitamin D3) 50 50 mcg PO DAILY 05/02/22 08/13/24 History mcg (2,000 unit) capsule denosumab 60 mg/mL subcutaneous 60 mg subcut [id number] #1 mL 08/13/24 Rx syringe (Prolia) insulin [...] History current occupational status: retired current occupation: [email or web address] Smoking Status: Never smoker Electronic Cigarette Use: [...] Endocrinology Visit Reporton 05-15-2024 Endocrinology Visit Report [facility] [address] [place] [address] OFFICE VISIT Date of Service: 05/15/24 MR#: [id number] Acct: [id number] Name: FADIA DUBON Rep #: [id number] : 1955 Provider: CATRINA mcneill Age/Sex: 69/F Location: [facility] [place].[facility] Status: Signed Intake Vital [...] denosumab 60 mg/mL subcutaneous 60 mg subcut [id number] #1 mL 05/15/24 Rx syringe (Prolia) pen [...] History current occupational status: retired current occupation: [email or web address] Smoking Status: Never smoker Electronic Cigarette Use: [...] back to work after 4 years of [employer]. She is going to work after her [...] Result Comment: Perf ormed at: - [facility] [place] [id number] Electrical Engineering Manager: Bert Pulido PhD, Phone: [phone] Performed By: #### L 501.9520, L3300.7140 ####[facility] [id number] [place], [address] Thyroid Stim Hormone (TSH)on 03-10-2024 TSH 5.820 uIU/mL High 0.358-3.740 [facility] Comment on above: Performed By: #### L 501.9520, L3300.6900 #### [facility] [address] [place], [place], [id number] CBC W/Diff, Automatedon - Absolute Lymph 2.25 X10 3/uL Normal 0.83-4.51 [facility] Comment on above: Performed By: #### L 502.0250, L506.1000, L500.4100, L500.4050, L501.9520, L100.0100 #### [facility] [address] [place], [address] Absolute Neut 2.2 X10 3/uL Normal 2.0-7.7 [facility] Comment on above: Performed By: #### L 502.0250, L506.1000, L500.4100, L500.4050, L501.9520, L100.0100 #### [facility] [address] [place], [address] Basophils/100 WBC (Bld) 0.4 % Normal 0-1 [facility] Comment on above: Performed By: #### L 502.0250, L506.1000, L500.4100, L500.4050, L501.9520, L100.0100 #### [facility] [address] [place], [address] Eosinophils/100 WBC (Bld) 4.3 % Normal 0-5 [facility] Comment on above: Performed By: #### L 502.0250, L506.1000, L500.4100, L500.4050, L501.9520, L100.0100 #### [facility] [address] [place], [address] Erythrocyte distribution width (RBC) [Ratio] 13.1 % Normal 11.6-14.6 [facility] Comment on above: Performed By: #### L 502.0250, L506.1000, L500.4100, L500.4050, L501.9520, L100.0100 #### [facility] [address] [place], [address] Hematocrit (Bld) [Volume fraction] 43.4 % Normal 37-47 [facility] Comment on above: Performed By: #### L 502.0250, L506.1000, L500.4100, L500.4050, L501.9520, L100.0100 #### [facility] [address] [place], [address] Hemoglobin (Bld) [Mass/Vol] 13.7 g/dL Normal 12.0-15.0 [facility] Comment on above: Performed By: #### L 502.0250, L506.1000, L500.4100, L500.4050, L501.9520, L100.0100 #### [facility] [address] [place], [address] IG% 0.400 Normal 0.0-0.9 [facility] Comment on above: Result Comment: IG% - Immature Granulocytes (promyelocytes, myelocytes and metamyelocytes) > 1% indicates that a LEFT SHIFT is Present. Performed By: #### L 502.0250, L506.1000, L500.4100, L500.4050, L501.9520, L100.0100 #### [facility] [address] [place], [address] Lymphocytes/100 WBC (Bld) 42.5 % High 19-41 [facility] Comment on above: Performed By: #### L 502.0250, L506.1000, L500.4100, L500.4050, L501.9520, L100.0100 #### [facility] [address] [place], [address] MCH (RBC) [Entitic mass] 31.0 pg Normal 27.0-32.0 [facility] Comment on above: Performed By: #### L 502.0250, L506.1000, L500.4100, L500.4050, L501.9520, L100.0100 #### [facility] [address] [place], [address] MCHC (RBC) [Mass/Vol] 31.6 g/dL Low 32-36 [facility] Comment on above: Performed By: #### L 502.0250, L506.1000, L500.4100, L500.4050, L501.9520, L100.0100 #### [facility] [address] [place], [address] MCV (RBC) [Entitic vol] 98.2 fL Normal 81-99 [facility] Comment on above: Performed By: #### L 502.0250, L506.1000, L500.4100, L500.4050, L501.9520, L100.0100 #### [facility] [address] [place], [address] Monocytes/100 WBC (Bld) 11.5 % High 0-10 [facility] Comment on above: Performed By: #### L 502.0250, L506.1000, L500.4100, L500.4050, L501.9520, L100.0100 #### [facility] [address] [place], [address] Neutrophils/100 WBC (Bld) 40.9 % Low 47-70 [facility] Comment on above: Performed By: #### L 502.0250, L506.1000, L500.4100, L500.4050, L501.9520, L100.0100 #### [facility] [address] [place], [address] Nucleated RBC (Bld) [#/Vol] 0 10*3/uL Normal 0-5 [facility] Comment on above: Performed By: #### L 502.0250, L506.1000, L500.4100, L500.4050, L501.9520, L100.0100 #### [facility] [address] [place], [address] Platelet mean volume (Bld) [Entitic vol] 9.8 fL Normal 6.2-12.0 [facility] Comment on above: Performed By: #### L 502.0250, L506.1000, L500.4100, L500.4050, L501.9520, L100.0100 #### [facility] [address] [place], [address] Platelets (Bld) [#/Vol] 339 10*3/uL Normal 150-450 [facility] Comment on above: Performed By: #### L 502.0250, L506.1000, L500.4100, L500.4050, L501.9520, L100.0100 #### [facility] [address] [place], [address] RBC (Bld) [#/Vol] 4.42 10*6/uL Normal 4.2-5.4 [facility] Comment on above: Performed By: #### L 502.0250, L506.1000, L500.4100, L500.4050, L501.9520, L100.0100 #### [facility] [address] [place], [address] RDW SD 47.3 fl High 35.1-43.9 [facility] Comment on above: Performed By: #### L 502.0250, L506.1000, L500.4100, L500.4050, L501.9520, L100.0100 #### [facility] [address] [place], [address] WBC (Bld) [#/Vol] 5.3 10*3/uL Normal 4.4-11.0 [facility] Comment on above: Performed By: #### L 502.0250, L506.1000, L500.4100, L500.4050, L501.9520, L100.0100 #### [facility] [address] [place], [address] Comprehensive Metabolic Prof ilon 02-15-2024 Albumin [Mass/Vol] 3.6 g/dL Normal 3.2-5.0 [facility] Comment on above: Performed By: #### L 502.0250, L506.1000, L500.4100, L500.4050, L501.9520, L100.0100 #### [facility] [address] [place], [address] Albumin/Globulin [Mass ratio] 1.0 {ratio} Normal 0.9-2.4 [facility] Comment on above: Performed By: #### L 502.0250, L506.1000, L500.4100, L500.4050, L501.9520, L100.0100 #### [facility] [address] [place], [address] ALK P 91 U/L Normal 45-117 [facility] Comment on above: Performed By: #### L 502.0250, L506.1000, L500.4100, L500.4050, L501.9520, L100.0100 #### [facility] [address] [place], [address] ALT [Catalytic activity/Vol] 20 U/L Normal 13-56 [facility] Comment on above: Performed By: #### L 502.0250, L506.1000, L500.4100, L500.4050, L501.9520, L100.0100 #### [facility] [address] [place], [address] AST [Catalytic activity/Vol] 14 U/L Low 15-37 [facility] Comment on above: Performed By: #### L 502.0250, L506.1000, L500.4100, L500.4050, L501.9520, L100.0100 #### [facility] [address] [place], [address] Bilirubin [Mass/Vol] 0.50 mg/dL Normal 0.20-1.00 [facility] Comment on above: Result Comment: For patients on eltrombopag therapy, use of Dimension [place] TBIL is not recommended. Performed By: #### L 502.0250, L506.1000, L500.4100, L500.4050, L501.9520, L100.0100 #### [facility] [address] [place], [address] BUN/CRE 15.2 RATIO Normal 10-20 [facility] Comment on above: Performed By: #### L 502.0250, L506.1000, L500.4100, L500.4050, L501.9520, L100.0100 #### [facility] [address] [place], [address] CA,Total 8.8 mg/dL Normal 8.5-10.1 [facility] Comment on above: Performed By: #### L 502.0250, L506.1000, L500.4100, L500.4050, L501.9520, L100.0100 #### [facility] [address] [place], [address] Chloride [Moles/Vol] 107 mmol/L Normal 98-107 [facility] Comment on above: Performed By: #### L 502.0250, L506.1000, L500.4100, L500.4050, L501.9520, L100.0100 #### [facility] [address] [place], [address] CO2 [Moles/Vol] 30.0 mmol/L Normal 21.0-32.0 [facility] Comment on above: Performed By: #### L 502.0250, L506.1000, L500.4100, L500.4050, L501.9520, L100.0100 #### [facility] [address] [place], [address] Creatinine [Mass/Vol] 0.72 mg/dL Normal 0.55-1.02 [facility] Comment on above: Result Comment: The validity of the calculated GFR GFRAA in patients over 70 years has not been determined. Clinical correlation is essential. Performed By: #### L 502.0250, L506.1000, L500.4100, L500.4050, L501.9520, L100.0100 #### [facility] [address] [place], [address] EST GFR - AA 103 mL/min Normal >60 [facility] Comment on above: Result Comment: Afri can Bermudian GFR Calc Performed By: #### L 502.0250, L506.1000, L500.4100, L500.4050, L501.9520, L100.0100 #### [facility] [address] [place], [address] GAP 3 Low 5-15 [facility] Comment on above: Performed By: #### L 502.0250, L506.1000, L500.4100, L500.4050, L501.9520, L100.0100 #### [facility] [address] [place], [address] GFR/1.73 sq M.predicted among non-blacks MDRD (S/P/Bld) [Vol rate/Area] 85 mL/min/{1.73_m2} Normal >60 [facility] Comment on above: Result Comment: Non- GFR Calc Performed By: #### L 502.0250, L506.1000, L500.4100, L500.4050, L501.9520, L100.0100 #### [facility] [address] [place], [address] Globulin (S) [Mass/Vol] 3.7 g/dL Normal 2.2-4.2 [facility] Comment on above: Performed By: #### L 502.0250, L506.1000, L500.4100, L500.4050, L501.9520, L100.0100 #### [facility] [address] [place], [address] Glucose [Mass/Vol] 133 mg/dL High 74-106 [facility] Comment on above: Result Comment: Fast ing Glucose result greater than or equal to 126 mg/dL suggests DIABETES MELLITUS per A.D.A. criteria. Performed By: #### L 502.0250, L506.1000, L500.4100, L500.4050, L501.9520, L100.0100 #### [facility] [address] [place], [address] Potassium [Moles/Vol] 4.2 mmol/L Normal 3.5-5.1 [facility] Comment on above: Performed By: #### L 502.0250, L506.1000, L500.4100, L500.4050, L501.9520, L100.0100 #### [facility] [address] [place], [address] Sodium [Moles/Vol] 140 mmol/L Normal 136-145 [facility] Comment on above: Performed By: #### L 502.0250, L506.1000, L500.4100, L500.4050, L501.9520, L100.0100 #### [facility] [address] [place], [address] T PROT 7.3 g/dL Normal 6.4-8.2 [facility] Comment on above: Performed By: #### L 502.0250, L506.1000, L500.4100, L500.4050, L501.9520, L100.0100 #### [facility] [address] [place], [address] Urea nitrogen [Mass/Vol] 11 mg/dL Normal 7-18 [facility] Comment on above: Performed By: #### L 502.0250, L506.1000, L500.4100, L500.4050, L501.9520, L100.0100 #### [facility] [address] [place], [address] Lipid Profileon 02-15-2024 Cholesterol [Mass/Vol] 201 mg/dL High 200 [facility] Comment on above: Result Comment: <200 mg/dL Desirable 200-240 mg/dL Borderline >240 mg/dL High Risk Performed By: #### L 502.0250, L506.1000, L500.4100, L500.4050, L501.9520, L100.0100 #### [facility] [address] [place], [address] Cholesterol in HDL [Mass/Vol] 110 mg/dL Normal [...] [facility] [address] [place], [address] Cholesterol in LDL [Mass/Vol] 81 mg/dL Normal 0-130 [facility] Comment on above: Performed By: #### L 502.0250, L506.1000, L500.4100, L500.4050, L501.9520, L100.0100 #### [facility] [address] [place], [address] Cholesterol in VLDL [Mass/Vol] 10 mg/dL Normal 5-40 [facility] Comment on above: Performed By: #### L 502.0250, L506.1000, L500.4100, L500.4050, L501.9520, L100.0100 #### [facility] [address] [place], [address] Triglyceride [Mass/Vol] 50 mg/dL Normal [facility] Comment on above: Result Comment: The drugs N-Acetylcysteine and Metamizole may falsely depress this assay. Serum Triglycerides Reference Interval Normal <150 mg/dL Borderline high 150 - 199 mg/dL High 200 - 499 mg/dL Very High > or = 500 mg/dL Performed By: #### L 502.0250, L506.1000, L500.4100, L500.4050, L501.9520, L100.0100 #### [facility] [address] [place], [address] Microalb:Creat Ratio,Random URon 02-15-2024 Creatinine [Mass/Vol] 119.00 mg/dL Normal NO RANGE EST . [facility] Comment on above: Performed By: #### L 502.0250, L506.1000, L500.4100, L500.4050, L501.9520, L100.0100 #### [facility] [address] [place], [address] MALB:CRE 6.2 mg/g CRE Normal <30 mg/g CRE [facility] Comment on above: Performed By: #### L 502.0250, L506.1000, L500.4100, L500.4050, L501.9520, L100.0100 #### [facility] [address] [place], [address] MICROALBUMIN,UR 7.4 mg/L Normal NO RANGE EST. [facility] Comment on above: Performed By: #### L 502.0250, L506.1000, L500.4100, L500.4050, L501.9520, L100.0100 #### [facility] [address] [place], [address] Thyroid Stim Hormone (TSH)on 02-15-2024 TSH 4.160 uIU/mL High 0.358-3.740 [facility] Comment on above: Performed By: #### L 502.0250, L506.1000, L500.4100, L500.4050, L501.9520, L100.0100 #### [facility] [address] [place], [place], [address] Vitamin D,25 Hydroxyon 02-14 Vitamin D 25-OH [...] [facility] [address] [place], [address] Endocrinology Visit Reporton 02-14-2024 Endocrinology Visit Report [facility] [address] [place], [place] [address] OFFICE VISIT Date of Service: 02/14/24 MR#: [id number] Acct: [id number] Name: FADIA DUBON Rep #: [id number] : 1955 Provider: CATRINA mcneill Age/Sex: 68/F Location: [facility] [place] Status: Signed Intake Vital Signs 11/07/23 [...] denosumab 60 mg/mL subcutaneous 60 mg subcut [id number] #1 mL 06/27/23 02/14/24 Rx syringe (Prolia) [...] History current occupational status: retired current occupation: [email or web address] Smoking Status: Never smoker Electronic Cigarette Use: [...] Endocrinology Visit Reporton 11-07-2023 Endocrinology Visit Report [facility] [address] [place] [address] [address] [place] [address] OFFICE VISIT Date of Service: 11/07/23 MR#: [id number] Acct: [id number] Name: FADIA DUBON Rep #: [id number] : 1955 Provider: GEOLOGICAL TECHNICAL OFFICER-C Ana Robson rson Age/Sex: 68/F Location: [facility] [...] 4 M FU Chief Complaint: f/u diabetes Licensed Nursing Assistant Required: No Accompanied by: Self Is patient [...] denosumab 60 mg/mL subcutaneous 60 mg subcut [id number] #1 mL 06/27/23 11/07/23 Rx syringe (Prolia) pen needle, diabetic 32 gauge x #100 ea 07/12/23 11/07/23 Rx 5/32 (BD Ultra-Fine Diana Pen Needle) insulin NPH isoph U-100 human 100 30 unit (0.3 mL) subcut QAM #9 mL 11/07/23 11/07/23 Rx unit/mL (3 mL) subcutaneous pen (Humulin N NPH U-100 Insulin KwikPen) Have you fallen in the past year?: No [facility] Cardiac murmur DKA (diabetic ketoacidoses) Surgical History H/O section Family History Mother Skin cancer Aunt Diabetes Other High cholesterol Social History current occupational status: retired current occupation: [email or web address] Smoking Status: Never smoker Electronic Cigarette Use: [...] Basophils/100 WBC (Bld) 0.3 % 0-1 [facility] Eosinophils/100 WBC (Bld) 3.8 % 0-5 [facility] Hemoglobin (Bld) [Mass/Vol] 14.2 g/dL 12.0-15.0 [facility] Monocytes/100 WBC (Bld) 8.7 % 0-10 [facility] Neutrophils (Bld) [#/Vol] 3.7 10*3/uL 2.0-7.7 [facility] Neutrophils/100 WBC (Bld) 56.3 % 47-70 [facility] WBC (Bld) [#/Vol] 6.5 10*3/uL 4.4-11.0 [facility] Determination of erythrocyte mean corpuscular volume (MCV)Ordered By: Lorna Bruce on 07-12-2023 MCV (RBC) [Entitic vol] 97.3 fL 81-99 [facility] Erythrocyte distribution wid th ratioOrdered By: [...] Center MCHC (RBC) [Mass/Vol] 32.4 g/dL 32-36 [facility] Nucleated RBC/100 WBC (Bld) [Ratio] 0 % 0-5 [facility] Platelet mean volume (Bld) [Entitic vol] 9.9 fL 6.2-12.0 [facility] Platelets (Bld) [#/Vol] 334 10*3/uL 150-450 [facility] RBC Auto (Bld) [#/Vol]Ordere d By: Lorna Bruce on 07-12-2023 RBC (Bld) [#/Vol] 4.50 10*6/uL 4.2-5.4 [facility] Serum or plasma thyroid stim ulating hormone (TSH) measurement (units/volume)Ordered By: Ana Love on 07-12-2023 TSH Qn 4.45 uIU/mL 0.358-3.74 [facility] Serum or plasma thyroperoxid ase antibody assay (units/volume)Ordered By: Ana Love on 07-12-2023 TPO Ab Qn [IU]/mL 0-34 [facility] Comment on above: Performed at: [address] [id number] Director: Bert Pulido PhD, Phone: [phone] Laboratory - Hematology and Cell countson 04-04-2023 HbA1c (Bld) [Mass fraction] 8.2 % 4.2-6.3 [facility] Basophil percentageOrdered B y: Ana Love on 12-08-2022 Bilirubin [Mass/Vol] 0.40 mg/dL 0.20-1.00 [facility] Comment on above: For patients on eltr ombopag therapy, use of Dimension [place] TBIL is not recommended. Chloride [Moles/Vol] 105 mmol/L 98-107 [facility] Cholesterol [Mass/Vol] 176 mg/dL <200 [facility] Comment on above: <200 mg/dL Desirable 200-240 mg/dL Borderline >240 mg/dL High Risk Glucose [Mass/Vol] 292 mg/dL 74-106 [facility] Comment on above: Glucose result great er than or equal to 200 mg/dLsuggests DIABETES MELLITUS per A.D.A. criteria. Potassium [Moles/Vol] 4.4 mmol/L 3.5-5.1 [facility] Protein [Mass/Vol] 7.1 g/dL 6.4-8.2 [facility] Sodium [Moles/Vol] 138 mmol/L 136-145 [facility] Triglyceride [Mass/Vol] 78 mg/dL <199 [facility] Comment on above: The drugs N-Acetylcy [...] Center Globulin (S) [Mass/Vol] 3.8 g/dL 2.2-4.2 [facility] Urea nitrogen/Creatinine [Mass ratio] 18.8 mg/mg [...] Medical Center Vitamin D 25-Hydroxy 50.3 ng/mL [facility] Comment on above: Vitamin D 25(OH) Sta tus Range Deficiency <20 ng/mL (50nmol/L) Insufficiency 20 - 30 ng/mL (50 - 75 nmol/L) Sufficiency 30 - 100 ng/mL (75 - 250 nmol/L) Toxicity >100 ng/mL (>250 nmol/L) Serum or plasma albumin dev urement (mass/volume)Ordered By: Ana Love on 12-08-2022 Albumin [Mass/Vol] 3.3 g/dL 3.2-5.0 [facility] Serum or plasma albumin/glob ulin mass ratioOrdered By: Ana Love on 12-08-2022 Albumin/Globulin [Mass ratio] 0.9 {ratio} 0.9-2.4 [facility] Serum or plasma calcium dev urement (mass/volume)Ordered By: Ana Love on 12-08-2022 Calcium [Mass/Vol] 8.5 mg/dL 8.5-10.1 [facility] Serum or plasma cholesterol in HDL [...] on 12-08-2022 Creatinine [Mass/Vol] 0.74 mg/dL 0.55-1.02 [facility] Comment on above: The validity of the [...] Medical Center Comment on above: Performed at: [address] Director: Bert Pulido PhD, Phone: [phone] Serum or plasma urea nitroge n measurement [...] watch for fax t o arrive. Normal [employer] [facility] 36 Name of caller: Rosemary Contact phone number: [phone] Relationship to Patient: From [facility] Diabetics Provider: Dr Escobedo Practice: [facility] Chief Complaint/Reason for Call: Rosemary sent over diabetes supplies and is requesting an order to be sent back Best time of day caller can be reached: Any Patient advised that office/PCP has 24-48 business hours to return their call: Yes [facility] - Hematology and Cell countson 05-25-2022 HbA1c (Bld) [Mass fraction] 8.2 % [facility] 36on 04-23-2022 36 In addition to most previous note blood sugars before her lunch she feels range between 112-144 [facility] 36 I called this patien t earlier [...] lunchtime, and 4 units her somewhat dinner [facility] Progress Noteon 04-23-2022 Progress Note error [facility] 36on 04-13-2022 36 Placed call to patient. Was able to speak to patient. All concerns in message have been addressed. [facility] 36 Tell pt that the chest xray is normal.Will need to let me know if cough no better in 1-2 weeks after changing from lisinopril to losartan [facility] 36on 04-12-2022 36 Talked to Medical Records and they are faxing over results of x-rays, results are scanned into media for review. [place] [address] Patients chest xray results are scanned into her chart for you to review [facility] 36on 04-11-2022 36 Talked to Medical records at [facility] and patient just had the chest x-ray done today and so we will need to call them at [phone] tomorrow to have results faxed over. [place] [address] Would like staff to call [facility] and see if can get results CXR recently had done [place] [address] I called pt to see how blood [...] of lisinopril. Had her CXR done today. [facility] 36on 04-07-2022 36 Placed call to patient. Was able to speak to patient. All concerns in message have been addressed. [facility] 36 I want to make sure that the chest x-ray order has been faxed to [facility].If so let pr know that she can go there for the chest x-ray. Let patient know that I have orders for fasting blood work. She can come into the office for this. [facility] 36on 04-05-2022 36 Orders pended for doctor signature Xray faxed to [facility] 36 I would like this patient referred to Dr. Nimesh Garnett patient account specialist in [facility] 36 I ordered a chest x-ray. I would like the order faxed to [facility]. [facility] Office Visiton 04-03-2022 Follow-up visit [id number] Fadia Dubon 1955 F Date Provider Department Center 04/03/2022 [facility] Family History Problem Relation Age of Onset COPD Mother Other Father Comments: lung disease Family Status - Relation Status Age at Mother Father 34 Level of Service:66646 PA OFFICE/OUTPATIENT ESTABLISHED LOW MDM 20-29 MIN Reason for Visit and Comments: Follow-up [827174] - 4 month med check [facility] Progress Noteon 04-03-2022 Progress Note Subjective: Patient [...] pen 8 units with meals [DISCONTINUED] Drug [place] Unilucia Pentips 31G X 8 MM misc [...] Diagnosis Type 1 diabetes mellitus with complication ([facility]) ([facility]) Type 2 diabetes mellitus without complication ([facility]) ([facility]) Menopause Adhesive capsulitis of right shoulder Social History Tobacco Use Smoking status: Never Smokeless tobacco: Never Substance Use Topics Alcohol use: Yes Alcohol/week: 0.0 standard drinks Past Surgical History: Procedure Laterality Date SECTION (HISTORICAL) COLONOSCOPY 04/16/2006 COLONOSCOPY 01/2021 Unremarkable DILATION AND CURETTAGE OF UTERUS Family History Problem Relation Name Age of Onset COPD Mother Other (91468) Father lung disease Assessment / Plan: Diagnosis Plan 1. Type 2 diabetes mellitus without complication, with long-term current use of insulin ([facility]) ([facility]) Basic metabolic panel Hemoglobin A1c Basic metabolic panel Hemoglobin A1c needs better control. Will have take novolog 10 units with breakfast. 10 units with her lunch and will decrease the evening to 6. 2. Cough, unspecified type XR chest 2 views Possibly secondary to OLMAN inhibitor.will have switched to lasartan. Chest x-ray 3. Lipid screening Lipid panel Lipid panel Will have patient see Dr. Garnett patient account specialist.flaco rodriguez will come in for fasting blood work. [facility] Progress Note [facility] Pre-chart Open Care Gaps: Statin for Diabetes Clinical guidelines recommend that patients 40 to 75 years of age with diabetes are to be placed on statin therapy, regardless of cardiovascular risk. Patients with lower LDL levels should be evaluated on an individual basis. Please discuss with patient starting a statin medication. Nadia Rose, PharmD, BCACP Clinical Pharmacist [facility] [phone] [facility] OT Bone Density DEXA Axial S paco 12-01-2020 OT Bone Density DEXA Axial Skeleton Patient Name: FADIA DUBON Bone Density ACCESSION EXAM DATE/TIME PROCEDURE ORDERING PROVIDER [id number] 12/01/2020 08:27 EDT OT Bone Density DEXA DO SHANNON PAUL E. Axial Skeleton CPT code 06198 Reason For Exam (OT Bone Density DEXA Axial Skeleton) . Report DXA BONE DENSITOMETRY: CLINICAL INDICATION: Asymptomatic post-menopausal status. Screening for osteoporosis. COMPARISON: None TECHNIQUE: Quantitative bone mineral densitometry of the hip and lumbar spine was performed with a dual energy x-ray observed absorptiometry device - [employer] at some institutions, HOLOGIC at others. Regions [...] recommendations for prevention of bone loss include: 1310-4452 mg calcium intake per day for adults [...] [place] of Knowledge Evidence - based Summaries. [facility] [employer] 2017. Bone Density Report Report Dictated on Final Dictating Physician: MD MARIANO JEFFREY Signed Date and Time: 12/02/2020 4:49 am Signed by: MD MARIANO JEFFREY Transcribed Date and Time: 12/02/2020 4:50 Normal [employer] [facility] CR Shoulder 2+ Views Lefton 10-28-2020 CR Shoulder 2+ Views Left Patient Name: FADIA DUBON Diagnostic Radiology ACCESSION EXAM DATE/TIME PROCEDURE ORDERING PROVIDER [id number] 10/28/2020 10:03 EDT CR Shoulder 2+ Views DO SHANNON PAUL EJj Left CPT code 63783 Reason For Exam (CR Shoulder 2+ Views [...] Transcribed Date and Time: 10/28/2020 10:26 Normal [facility] XR Shoulder Left 2 VWOrdered By: Chandler Shannon on 10-28-2020 Patient Name: FADIA DUBON Diagnostic Radiology ACCESSION EXAM DATE/TIME PROCEDURE ORDERING PROVIDER [id number] 10/28/2020 10:03 EDT CR Shoulder 2+ Views DO SHANNON PAUL E. Left CPT code 57593 Reason For Exam (CR Shoulder 2+ Views [...] ANTHONY Transcribed Date and Time: 10/28/2020 10:26 [facility] From [facility] - 10/28/2020 10:26 AM EDT Patient Name: FADIA DUBON Diagnostic Radiology ACCESSION EXAM DATE/TIME PROCEDURE ORDERING PROVIDER [id number] 10/28/2020 10:03 EDT CR Shoulder 2+ Views DO SHANNON PAUL E. Left CPT code 38212 Reason For Exam (CR Shoulder 2+ Views [...] ED NOTEon 06-19-2019 ED NOTE HNO ID: [id number] Author: Monse Rodriguez RN Service: Nursing Author Type: Registered Nurse Type: ED Notes Filed: 06/19/2019 10:46 AM Note Text: Discharge instructions reviewed with pt. All questions answered. Pt leaving ambulatory with crutches. Normal [facility] ED NOTE HNO ID: [id number] Author: Monse RodriguezRn) DANIEL Rodriguez Service: Nursing Author Type: Registered Nurse Type: ED Notes Filed: 06/19/2019 9:12 AM Note Text: Pt presents to ED with c/o L foot injury from work yesterday. States she got her foot stuck in between equipment. Didn't notice it much yesterday but today it's swollen and bruised [facility] ED PROV NOTEon 06-19-2019 ED PROV NOTE HNO ID: [id number] Author: Luciana Jones (Pa) Service: ? Author Type: Physician [employer] Operator Type: ED Provider Notes Filed: 06/19/2019 10:19 [...] probable small fracture first toe distal phalanx. Drywall Carrier: CATHIE Transcribe Date/Time: Jun 19 2019 9:55A [...] stable SIGNATURE: SRINATH Bonner (Pa) 06/19/19 1019 [facility] XR FOOT 3V AP/LAT/OBL LTon 0 06-19-2019 [...] probable small fracture first toe distal phalanx. Drywall Carrier: PSCB Transcribe Date/Time: Jun 19 2019 9:55A Dictated by : LEELA WHITE DO This examination was interpreted and the report reviewed and electronically signed by: LEELA WHITE DO on Jun 19 2019 10:03AM EST [id number] [facility] Vital Signs Date Time Vital Sign Value [...] 11:25-0400 Diastolic blood pressure 75 mm[Hg] Dr. Lonra Bruce Work Phone: [facility] [...] 08:11-0400 Heart rate 60 /min Dr. Chandler hSannon Work Phone: [facility] [...] 05-25-2022 08:16-0500 Body temperature 97.1 [degF] Dr. Chandler Shannon Work Phone: [facility] [...] Start: 08-13-2024 End: 08-13-2024 ambulatory Lorna Bruce Facility:[facility] Start: 05-15-2024 End: 05-15-2024 ambulatory Lorna Bruce Facility:[facility] Start: 03-10-2024 End: 03-10-2024 [...] encounter procedure Dr. Lorna Bruce Work Phone: [facility] Endocrinology Work Phone: Start: 01-09-2023 End: 01-09-[address] Chandler Shannon Work Phone: [facility] Work Phone: Start: 01-09-2023 End: 01-09-[address] Chandler Shannon Work Phone: [facility]-Medical Out Work Phone: Start: 12-27-2022 End: 12-27-[address] Chandler Shannon Work Phone: [facility] Internal Medicine Work Phone: Start: 12-08-2022 End: 12-08-[address] Chandler Shannon Work Phone: [facility] Work Phone: Start: 12-08-2022 End: 12-08-[address] Chandler Shannon Work Phone: [facility]-Laboratory Work Phone: Start: 12-04-2022 End: 12-04-[address] Chandler Shannon Work Phone: [facility] Endocrinology Work Phone: Start: 08-28-2022 End: 08-28-[address] Chandler Shannon Work Phone: [facility] Endocrinology Work Phone: Start: 08-24-2022 End: 08-24-[address] Chandler Shannon Work Phone: [facility] Internal Medicine Work Phone: Start: 07-06-2022 End: 07-06-[address] Chandler Shannon Work Phone: [facility] Work Phone: Start: 07-06-2022 End: 07-06-[address] Chandler Shannon Work Phone: [facility]-Outpatient Bone Densitometry Start: 05-25-2022 End: 05-25-[address] Chandler Shannon Work Phone: [facility] Endocrinology Start: 05-02-2022 Non-patient / Non-visit Dr. Chandler Shannon Work Phone: [facility] Internal Medicine Start: 04-23-2022 Telephone encounter Chandler rebollar DO Work Phone: [facility] Comment on above: Diabetes (Blood suga r readings) Start: 04-12-2022 Telephone encounter Chandler rebollar DO Work Phone: [facility] Comment on above: Results (Xray); Diab etes (Blood sugar readings) Start: 04-12-2022 End: 04-12-2022 [facility] Start: 04-11-2022 End: 04-11-2022 ambulatory [facility] Work Phone: Start: 04-11-2022 End: 04-11-2022 Patient encounter procedure [facility]-Radiology, [facility] Start: 04-03-2022 End: 04-03-2022 [facility] Start: 12-01-2020 End: 12-01-2020 Subsequent hospital visit by physician Chandler Shannon DO Work Phone: [facility] Comment on above: Menopause Start: 10-28-2020 End: 10-28-2020 Subsequent hospital visit by physician Chandler Shannon DO Work Phone: [facility] Comment on above: Chronic left shoulde [...] Start: 03-27-2024 Glaucoma screening Diabetes: Retinopathy Screening [facility] [employer] Start: 10-29-2023 Screening for malignant neoplasm of cervix Cervical cancer screen [facility] Work Phone: Start: 04-12-2023 Lipid panel Lipid Panel [facility] [employer] Start: 11-29-2022 Urine screening for protein Diabetes: Urine Protein Screening [facility] [employer] Start: 07-11-2022 Hemoglobin A1c measurement Diabetes: Hemoglobin A1C [facility] [employer] Start: 04-19-2022 End: 04-19-2023 Thyrotropin [Units/volume] in Serum or Plasma [facility] [employer] Comment on above: Expected: 04/19/2022 (Approximate), Expi res: 04/19/2023 Start: 04-19-2022 End: 04-19-2023 Triiodothyronine (T3) [Mass/volume] in Serum or Plasma T3 Lab Routine Weight gain Expected: 04/19/2022 (Approximate), Expires: 04/19/2023 [employer] Work Phone: Comment on above: Expected: 04/19/2022 (Approximate), Expi res: 04/19/2023 Start: 02-11-2022 Screening for malignant neoplasm of breast Breast cancer screen [employer] Work Phone: Start: 10-28-2021 Creatinine measurement Creatinine monitoring [employer] Work Phone: Start: 10-28-2021 Diabetic foot examination Diabetic foot exam [employer] Work Phone: Start: 10-28-2021 Diabetic microalbuminuria test Diabetic microalbuminuria test [employer] Work Phone: Start: 10-28-2021 Hemoglobin A1c measurement A1C test (Diabetic or Prediabetic) [employer] Work Phone: Start: 10-28-2021 Pneumococcal Vaccine: 65+ Years (2 - PCV) Pneumococcal Vaccine: 65+ Years (2 - PCV) [facility] [employer] Start: 10-28-2021 Potassium monitoring Potassium monitoring [employer] Work Phone: Start: 05-04-2021 Diabetic retinal exam Diabetic retinal exam [employer] Work Phone: Start: 03-01-2021 Lipid panel Lipid screen [employer] Work Phone: Start: 03-01-2021 End: 03-01-2021 Patient encounter procedure 03/01/2021 Office Visit Family Medicine Chandler Shannon, DO [address] [place] [phone] [facility] Start: 02-19-2021 Screening for malignant neoplasm of breast Mammogram [facility] Start: 01-28-2021 Hemoglobin A1c measurement A1C test (Diabetic or Prediabetic) [facility] Work Phone: Start: 12-15-2020 Influenza vaccination Flu vaccine (#1) [facility] Work Phone: Start: 12-07-2020 End: 12-07-2020 Patient encounter procedure 12/07/2020 Office Visit [facility] [place] Start: 09-23-2020 COVID-19 Vaccine (3 - Booster for Pfizer series) COVID-19 Vaccine (3 - Booster for Pfizer series) [facility] Start: 06-29-2020 Annual Wellness Visit (AWV) Annual Wellness Visit (AWV) [facility] Work Phone: Start: 11-22-2019 Screening for malignant neoplasm of cervix Cervical cancer screen [facility] Work Phone: Start: 03-27-2019 Screening for malignant neoplasm of colon Colon Cancer Screen FIT/FOBT [facility] Work Phone: Start: 2010 Screening for osteoporosis DEXA (modify frequency per FRAX score) [facility] Work Phone: Start: 2005 Shingles Vaccine (1 of 2) Shingles Vaccine (1 of 2) [facility] Work Phone: Start: 2005 Zoster Vaccines (1 of 2) Zoster Vaccines (1 of 2) [facility] Start: 1974 DTaP/Tdap/Td vaccine (1 - Tdap) DTaP/Tdap/Td vaccine (1 - Tdap) [facility] Work Phone: Start: 1974 DTaP/Tdap/Td Vaccines (1 - Tdap) DTaP/Tdap/Td Vaccines (1 - Tdap) [facility] Start: 1973 Hepatitis C screening Hepatitis C Screening [facility] Start: 1970 HIV screening HIV screen [facility] Work Phone: Start: 1965 Diabetic foot examination Diabetes: Foot Exam [facility] Start: 1965 Preventive dental service Diabetes: Dental Exam [facility] Start: 1955 Cyanocobalamin vitamin b-12 Vitamin B-12 [facility] Start: 1955 Diabetes: Celiac Disease Screening Diabetes: Celiac Disease Screening [facility] Start: 1955 Hepatitis B Vaccines (1 of 3 - 3-dose series) Hepatitis B Vaccines (1 of 3 - 3-dose series) [facility] Start: 1955 Hepatitis C screening Hepatitis C screen [facility] Work Phone: Start: 1955 Screening for malignant neoplasm of colon [facility] Start: 1955 Thyroid stimulating hormone measurement TSH Level [facility] CBC W Auto Different ial panel - Blood [facility] End: 12-01-2020 DEXA Bone Density Axial Skeleton DEXA Bone Density Axial Skeleton Imaging Routine Menopause 1 Occurrences starting 12/01/2020 until 12/01/2020 [employer] Work Phone: Comment on above: 1 Occurrences starting 12/01/2020 until 12/01/2020 DEXA Bone Density Ax ial Skeleton DEXA Bone Density Axial Skeleton Imaging Routine Menopause 12/01/2020 8:07 AM EDT [facility] Work Phone: Immunizations Immunization Date Immunization Notes Care Provider Fa [facility] 08-24-2022 tetanus toxoid, redu francine diphtheria [...] contains preservative Chandler Shannon DO Work Phone: [facility] 01-28-2016 influenza, injectabl e, quadrivalent, preservative [...] 23 valent Chandler Shannon DO Work Phone: [facility] Work Phone: 02-29-2012 pneumococcal vaccine , unspecified formulation Dr. Chandler Shannon Work Phone: [facility] Payers Date Payer Category Payer Self-pay [id number] 2020 Medicare [id number] 2020 Medicare [employer] MEDICARE ADVANTAGE [employer] MEDICARE [id number] 2020-Present [address] [address] [place] [address] Medicare HMO [id number] Private Health Insurance AET [id number] Unknown [id number] Unknown [id number] Unknown [id number] Unknown [id number] Unknown [id number] Unknown [id number] Social History Date Type Detail Facility Start: 06-29-2020 Tobacco smoking stat [facility] Never smoker [employer] Start: 06-29-2020 Tobacco use and exposure Never used [employer] Work Phone: Start: 06-29-2020 End: 04-19-2022 Alcohol intake Current drinker of alcohol (finding) [employer] Work Phone: Start: 06-29-2020 End: 04-19-2022 Alcohol intake [employer] Work Phone: Start: 07-22-2018 History SDOH Alcohol Frequency 2 [employer] Work Phone: Start: 07-22-2018 History SDOH Alcohol Std Drinks 1 [employer] Work Phone: Start: 07-22-2018 History SDOH Social Connections Phone 5 [employer] Work Phone: Start: 10-28-2018 History SDOH Social Connections [employer] 98 [employer] Work Phone: Start: 07-22-2018 History SDOH Physica l Activity MPS 3 [employer] Work Phone: Start: 1955 Sex Assigned At Not on file [facility] Work Phone: Start: 04-02-2022 End: 04-12-2022 Exposure to SARS-CoV-2 (event) Not sure [employer] Start: 09-24-2018 End: 07-12-2023 Tobacco smoking status NHIS Unknown if ever smoked [facility] Start: 09-16-2018 None [facility] Start: 09-16-2018 Spouse/ Signif icant Other [facility] Start: 09-24-2018 Non-smoker [facility] Start: 1955 Sex Assigned At Female W [facility] Medical Equipment Procedure Code Equipment Code Equipment Origin al Text Equipment Identifier Dates 1 each by In Vit ro route 2 times daily As needed. [id number] Start: 02-13-2019 1 each by Does n ot apply route daily [id number] Start: 10-28-2020 End: 11-27-2020 Pen Needle, Diab [...] End: 07-12-2023 use WITH injecti on DAILY [id number] Start: 04-03-2022 Goals Date Patient Goal Desired [...] her lunch she feels range between 112-144 [facility] 04-23-2022 Miscellaneous Notes Formattin g of this note might be different from the original. In addition to most previous note blood sugars before her lunch she feels range between 112-144 documented in this encounter [facility] 04-23-2022 Telephone encounter Note Form atting [...] lunchtime, and 4 units her somewhat dinner [facility] 04-23-2022 Miscellaneous Notes Formattin g of [...] you to review documented in this encounter [facility] 04-12-2022 Telephone encounter Note Form atting of this note might be different from the original. Patients chest xray results are scanned into her chart for you to review [facility] Evaluation note Diagnosis Chronic left shoulder pain Pain in joint, shoulder region documented in this encounter [facility] Work Phone: Evaluation note* Diagnosis Menopause Symptomatic menopausal or female climacteric states documented in this encounter [facility] Work Phone: Evaluation noteNo assessment information [...] (BMI 25.0-29.9) n oneactive Essential hypertension nonea [facility] Work Phone: evaluation note* Diagnosis Onset Date Resolution Status Diabetes mellitus type 1 chr onic Elevated TSH chronic Hypertension chronic Osteopenia chronic Overweight chronic Diabetes mellitus type 1 chr onic Elevated TSH chronic Hypertension chronic Microalbuminuria due to type 1 diabetes mellitus chronic Osteopenia chronic Overweight [facility] Work Phone: Evaluation note* Diagnosis Weight gain- Primary Other symptoms concerning nutrition, metabolism, and development documented in this encounter [facility] Health Summary Purpose Family History No Family [...] FoundDocuments on File Type Date Recorded Patient Inventory Planner Expl anation ACP-Advance Directive ACP-Power of Ordering Machine Operator Documents on File Type Date Recorded Patient Inventory Planner Expl anation ACP-Advance Directive ACP-Power of Ordering Machine Operator Advance Directive Response Recorded Date/ Time Living Will No September 16, 2018 4 :30pm Power of Ordering Machine Operator No September 16, 2018 4:30pm Advance Directive Response Recorded Date/ Time Living Will No September 16, 2018 5 :30pm Power of Ordering Machine Operator No September 16, 2018 5:30pm Advance Directive Response Recorded Date/ Time Living Will No July 03, 2023 11:25am Power of Ordering Machine Operator No July 02 11:25am Reason for Referral Status Reason Specialty Diagnoses / Procedures Referre d By Contact Referred To Contact Open Radiology Diagnoses Menopause Procedures DEXA Bone Density Axial Skeleton Chandler Shannon DO [address] [place] [address] Chief Complaint and Reason for Visit Chief Complaint Cough, unspecified Chief Complaint Cough, unspecified Amb Documentation Diabetes SCREENING/OSTEO Reason for Visit Diabetes mellitus ty pe 1 Osteoporosis Overweight Chief Complaint 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 EST C[facility] - PPW S ENT 3 [...] section and content) DATE CREATED AUTHOR 06/19/2019 [facility] DATE CREATED AUTHOR AUTHOR'S ORGANIZ ATION 12/02/2020 [facility] DATE CREATED AUTHOR AUTHOR'S ORGANIZ ATION 07/28/2022 [facility] DATE CREATED AUTHOR AUTHOR'S ORGANIZ ATION 08/13/2024 [facility] Goals (unrecognized section and content) Goals may [...] Referrin g Provider Active Ana Love , GEOLOGICAL TECHNICAL OFFICER-C Attending Provider Active Team Status: Active Member Role Status Dates Dr. Chandler Shannon DO Primary Care Provider Active Zachary Guillen Attending Provider Active Team Status: Inactive Member Role Status Dates Dr. Chandler Shannon DO Primary Care Prov ider, Attending Provider, Referring Provider Active Team Status: Inactive Member Role Status Dates Dr. Chandler Shannon DO Primary Care Provider Active Ana Love , GEOLOGICAL TECHNICAL OFFICER-C Attending Provider, Referring Pr ovider Active Team [...] Shannon DO Referring Provider Active Ana Love GEOLOGICAL TECHNICAL OFFICER-C Attending Provider Active Dr. Lorna Bruce MD Primary Care Provider Active Team Status: Inactive Member Role Status Dates Dr. Lorna Bruce MD Primary Care Provider Active Ana Love , GEOLOGICAL TECHNICAL OFFICER-C Attending Provider, Referring Pr ovider Active Team Status: Inactive Member Role Status Dates Dr. Lorna Bruce MD Primary Care Pro vider, Attending Provider, Referring Provider Active Team Status: Inactive Member Role Status Dates Dr. Lorna Bruce MD Primary Care Provider, Referri ng Provider Active Ana Love , GEOLOGICAL TECHNICAL OFFICER-C Attending Provider Active Team Status: Active Member Role Status Dates Dr. Lorna Bruce MD Primary Care Pro vider, Attending Provider, Referring Provider Active Ana Love , GEOLOGICAL TECHNICAL OFFICER-C Other Provider Active Team Status: Inactive Member Role Status Dates Dr. Lorna Bruce MD Primary Care Pro vider, Attending Provider, Referring Provider Active Ana Love , GEOLOGICAL TECHNICAL OFFICER-C Other Provider Active Supervisor Microwave Relationship Specialty Start Date End Date Chandler Shannon DO [address] [place] [address] PCP - General 11/21/16 Supervisor Microwave Relationship Specialty Start Date End Date Chandler Shannon DO [address] [place] [id number] PCP - General 11/21/16 Reason for Visit [...] BE BASED ON THE PRIMARY CLINICAL RECORDS. [facility] [employer] [facility]. provides no warranty or guarantee of the accuracy or completeness of information in this document.
[2025-02-03 10:36] LABS: Creatinine, Urine (random) 114.00 mg/dL (28.00-217.00); Microalbumin,Random Urine < 12.0 mg/L (<20 mg/L)
[2025-02-03 10:57] LABS: AST(SGOT) 15 U/L (<=31); Alanine Aminotransfer ALT/SGPT 11 U/L (<=34); Albumin, Serum 4.2 g/dL (3.4-4.8); Alkaline Phosphatase 68 U/L (35-104); Anion Gap 9 (5-15); BUN 13 mg/dL (4-19); BUN/Creat Ratio 17.5 RATIO (10-20); Calcium,Total 9.4 mg/dL (7.6-11.0); Carbon Dioxide 25.9 mmol/L (21.0-32.0); Chloride 105 mmol/L (98-108); Cholesterol 200 mg/dL (<=200); Globulin 2.8 g/dL (2.2-4.2); Glucose 191 mg/dL (70-99); Low Density Lipoprotein Calc. 95 mg/dL; Potassium 4.5 mmol/L (3.3-5.1); Triglycerides 72 mg/dL; Very Low Density Lipoprotein 14 mg/dL (5-40); Vitamin D,25 Hydroxy 47.7 ng/mL (30-100); cholesterol:hdl ratio screen 2.18
== END | disposition home or self-care (01) ==
LOC: LAB 08:17
PROVIDERS: PCP Internal Medicine; Referring Provider Nurse Practitioner Family; Visit Provider Nurse Practitioner Family
DX: E10.65 Type 1 diabetes mellitus with hyperglycemia (principal); E55.9 Vitamin D deficiency, unspecified
CPT/HCPCS: 36415; 80053; 80061; 82043; 82306; 82570; 84443

== ENCOUNTER → 2025-03-02 | Outpatient (CLI) | payer MEDICARE, SELFPAY ==
--- NOTE | 2025-03-02 16:00 | BI_ITS ---
EXAM: SCRN MAMM (CAD)W/CARLOS ENRIQUE BILAT DATE: 03/02/2025 CLINICAL HISTORY: F, Age 69 y/o , ANNUAL SCREENING TECHNIQUE: Procedure Code: [id number] Modality: MG Procedure: SCRN MAMM (CAD)W/CARLOS ENRIQUE BILAT COMPARISON: Prior exam(s) were compared FINDINGS: TISSUE DENSITY: The breasts are heterogeneously dense, which may obscure small masses. Bilateral Breast Mammographic Findings: No significant masses, calcifications or other abnormalities are identified. BI/SCRN MAMM (CAD)W/CARLOS ENRIQUE BILAT IMPRESSION: No mammographic evidence of malignancy in either breast. OVERALL FINAL ASSESSMENT BI-RADS 1: NEGATIVE. RECOMMENDATION: Routine annual follow-up in 1 Year Additional Recommendation none A letter with findings and recommendations will be mailed to the patient. Reading Location: [id number]
== END | disposition home or self-care (01) ==
PROVIDERS: PCP Internal Medicine; Referring Provider Nurse Practitioner Family; Visit Provider Nurse Practitioner Family
DX: Z12.31 Encounter for screening mammogram for malignant neoplasm of breast (principal)
CPT/HCPCS: 77063; 77067